=== PATIENT | female | born 1975 | race Hispanic/Latino ===

== ENCOUNTER 2018-03-28 10:58 | Emergency (ER) | payer SELFPAY ==
[2018-03-28] MEDS ORDERED: AMLODIPINE 5 MG TAB ONE (11:43)
[2018-03-28] MEDS ORDERED: LISINOPRIL 20 MG TAB ONE (11:43)
--- NOTE | 2018-03-28 13:05 | RAD REPORT ---
EXAM DESCRIPTION: RAD - Chest Pa And Lat (2 Views) - 03/28/2018 12:45 pm CLINICAL HISTORY: Cough and congestion COMPARISON: December 2009 TECHNIQUE: PA and lateral views of the chest were obtained. FINDINGS: The lungs are normal volume. Interstitial markings are prominent increased over the prior study. Prior examination showed scarring or linear atelectasis in the lower lung martinez. This scarrin g changes are present to a lesser degree. No large mass or consolidation. Right hilar fullness is pre sent accentuated by slight rotation artifact. Heart size is normal and central vasculature is within normal limits. No pleural effusion or pneumothorax seen. No acute bony finding noted. No aortic ab normality. IMPRESSION: Prominent interstitial lung markings increased over the baseline prominence. Pattern is suspicious for interstitial infiltrate or edema superimposed on chronic interstitial disea se.
--- NOTE | 2018-03-28 13:10 | ER ---
Nurse's Notes [facility] Name: Danni Huber Age: 43 yrs Sex: Female : 1975 Arrival Date: 03/28/2018 Time: 11:02 Bed 8 Private MD: Diagnosis: Bronchitis, not specified as acute or chronic Presentation: 03/28 11:05 Presenting complaint: Patient states: persistent productive cough with clear sputum for la1 since tuesday. Transition of care: patient was not received from another setting of care. Onset of symptoms was March 28, 2018. Risk Assessment: Do you want to hurt yourself or someone else? Patient reports no desire to harm self or others. Initial Sepsis Screen: Does the patient meet any 2 criteria? No. Patient's initial sepsis screen is negative. Does the patient have a suspected source of infection? No. Patient's initial sepsis screen is negative. Care prior to arrival: None. 11:05 Method Of Arrival: Ambulatory la1 11:05 Acuity: ALEXIS 3 la1 Triage Assessment: 11:00 Respiratory: Onset: The symptoms/episode began/occurred the patient has mild shortness iw of breath. 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 - Social history:: Smoking status: Patient uses tobacco products, smokes one-half pack cigarettes per day. - Ebola Screening: : No symptoms or risks identified at this time. Screenin:42 Abuse screen: Denies threats or abuse. Denies injuries from another. Nutritional iw screening: No deficits noted. Tuberculosis screening: No symptoms or risk factors identified. Fall Risk None identified. Assessment: 11:41 General: Appears in no apparent distress. Behavior is calm, cooperative. Pain: iw Complains of pain in chest. Neuro: Level of Consciousness is awake, alert, obeys commands. Cardiovascular: Rhythm is regular. Respiratory: Airway is patent Respiratory effort is even, unlabored, Respiratory pattern is regular, symmetrical, Breath sounds are coarse bilaterally. Respiratory: Reports cough that is productive. Derm: Skin is intact, is healthy with good turgor. 12:19 Reassessment: Patient appears in no apparent distress at this time. pt c/o headache, pt iw requesting to take OTC migraine medicine that she normally takes, DYE WEIGHER notified. awaiting Xray, BP down to 164/98. 13:15 Reassessment: ERP at bedside discussing plan of care. jl7 13:33 Reassessment: ERP notified of BP, no new orders received at this time. Pt discharged. jl7 13:48 Reassessment: Pt went to the bathroom and noticed tiny red dots on her left hand and jl7 wrist that were not there before. Dr. Martin ordered CBC to be done before discharge. Vital Signs: 11:05 BP 223 / 80; Pulse 80; Resp 16; Temp 99.2(O); Pulse Ox 100% on R/A; Weight 104.33 kg; la1 Height 5 ft. 1 in. (154.94 cm); 11:41 BP 231 / 97; Pulse 81; Resp 16; Pulse Ox 100% on R/A; iw 12:18 BP 164 / 98; Pulse 78; Resp 16; Pulse Ox 98% on R/A; iw 13:31 BP 193 / 79; Pulse 78; Resp 16 S; Pulse Ox 96% on R/A; jl7 14:38 BP 189 / 90; Pulse 75; Resp 14 S; Pulse Ox 100% on R/A; jl7 11:05 Body Mass Index 43.46 (104.33 kg, 154.94 cm) la1 ED Course: 11:02 Patient arrived in ED. mr 11:05 Triage completed. la1 11:06 [facility]attie Alejandre [facility]-C [facility]. kb 11:06 Keith Turcios MD is Attending Physician. kb 11:06 Arm band placed on right wrist. la1 11:15 Patient has correct armband on for positive identification. Placed in gown. Bed in low jl7 position. Call light in reach. Side rails up X 1. environmental monitoring specialist on. Pulse ox on. NIBP on. 11:35 Tiffani Queen, IRENE is Primary Nurse. iw 12:09 No provider procedures requiring assistance completed. Patient did not have IV access iw during this emergency room visit. 12:44 X-ray completed. Patient tolerated procedure well. Patient moved back from radiology. jb2 12:46 Chest Pa And Lat (2 Views) XRAY In Process Unspecified. EDMS 13:58 Initial lab(s) drawn, by me, sent to lab. Inserted saline lock: 22 gauge in right iw antecubital area, using aseptic technique. Blood collected. Administered Medications: 11:45 Drug: Lisinopril 40 mg Route: PO; iw 12:24 Follow up: Response: Blood pressure is lowered iw 11:45 Drug: Norvasc 5 mg Route: PO; iw 12:24 Follow up: Response: No adverse reaction; Blood pressure is lowered iw 13:23 Drug: Zithromax 500 mg Route: PO; jl7 13:31 Follow up: Response: Medication administered at discharge. jl7 14:39 Follow up: Response: No adverse reaction jl7 Outcome: 13:09 Discharge ordered by MD. kb 13:32 Discharged to home ambulatory, with family. jl7 13:33 Condition: stable jl7 13:33 Discharge instructions given to patient, family, Instructed on discharge instructions, follow up and referral plans. medication usage, Demonstrated understanding of instructions, follow-up care, medications, Prescriptions given X 2. 14:30 Discharge ordered by . kb 14:39 Patient left the ED. jl7 Signatures: Dispatcher [employer] EDMS Pattie Alejandre, CIRCUS AGENT-C CIRCUS AGENT-Ckb Anabell Epps, Solo jb2 Tiffani Queen, RN RN iw Cameron Porter, RN RN la1 Musa Santamaria RN RN jl7 Corrections: (The following items were deleted from the chart) 13:33 11:15 Discharged to home ambulatory, with family, jl7 jl7 13:33 11:15 Condition: stable jl7 jl7 13:33 11:15 Discharge instructions given to patient, family, Instructed on discharge jl7 instructions, follow up and referral plans. medication usage, Demonstrated understanding of instructions, follow-up care, medications, Prescriptions given X 2, jl7
--- NOTE | 2018-03-28 13:10 | EDPHYS ---
Physician Documentation [facility] Name: Danni Huber Age: 43 yrs Sex: Female : 1975 Arrival Date: 03/28/2018 Time: 11:02 Bed 8 Private MD: ED Physician Keith Turcios HPI: 03/28 11:46 This 43 yrs old Female presents to ER via Ambulatory with complaints of kb Breathing Difficulty, Cough. 11:46 The patient or guardian reports cough, that is intermittent, described as moderate, kb with no sputum, difficulty breathing, flu symptoms. Onset: The symptoms/episode began/occurred 5 day(s) ago. Severity of symptoms: At their worst the symptoms were mild, moderate, in the emergency department the symptoms are unchanged. Modifying factors: The symptoms are alleviated by nothing, the symptoms are aggravated by nothing. Associated signs and symptoms: The patient has no apparent associated signs or symptoms. The patient has not experienced similar symptoms in the past. The patient has not recently seen a physician. 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 - Social history:: Smoking status: Patient uses tobacco products, smokes one-half pack cigarettes per day. - Ebola Screening: : No symptoms or risks identified at this time. ROS: 11:45 ENT: Negative for injury, pain, and discharge, Cardiovascular: Negative for chest pain, kb palpitations, and edema, Abdomen/GI: Negative for abdominal pain, nausea, vomiting, diarrhea, and constipation, Back: Negative for injury and pain, MS/Extremity: Negative for injury and deformity, Skin: Negative for injury, rash, and discoloration, Neuro: Negative for headache, weakness, numbness, tingling, and seizure. 11:45 Constitutional: Positive for chills, malaise, Negative for body aches, fatigue, fever, poor PO intake, weight loss. 11:45 Respiratory: Positive for cough, Negative for dyspnea on exertion, hemoptysis, orthopnea, pleurisy, shortness of breath, sputum production, wheezing. Exam: 11:45 Head/Face: Normocephalic, atraumatic. ENT: Nares patent. No nasal discharge, no kb septal abnormalities noted. Tympanic membranes are normal and external auditory canals are clear. Oropharynx with no redness, swelling, or masses, exudates, or evidence of obstruction, uvula midline. Mucous membranes moist. Neck: Trachea midline, no thyromegaly or masses palpated, and no cervical lymphadenopathy. Supple, full range of motion without nuchal rigidity, or vertebral point tenderness. No Meningismus. Chest/axilla: Normal chest wall appearance and motion. Nontender with no deformity. No lesions are appreciated. Cardiovascular: Regular rate and rhythm with a normal S1 and S2. No gallops, murmurs, or rubs. Normal PMI, no JVD. No pulse deficits. Respiratory: Lungs have equal breath sounds bilaterally, clear to auscultation and percussion. No rales, rhonchi or wheezes noted. No increased work of breathing, no retractions or nasal flaring. Abdomen/GI: Soft, non-tender, with normal bowel sounds. No distension or tympany. No guarding or rebound. No evidence of tenderness throughout. Skin: Warm, dry with normal turgor. Normal color with no rashes, no lesions, and no evidence of cellulitis. MS/ Extremity: Pulses equal, no cyanosis. Neurovascular intact. Full, normal range of motion. Neuro: Awake and alert, GCS 15, oriented to person, place, time, and situation. Cranial nerves II-XII grossly intact. Motor strength 5/5 in all extremities. Sensory grossly intact. Cerebellar exam normal. Normal gait. 11:45 Constitutional: The patient appears alert, awake, uncomfortable. Vital Signs: 11:05 BP 223 / 80; Pulse 80; Resp 16; Temp 99.2(O); Pulse Ox 100% on R/A; Weight 104.33 kg; la1 Height 5 ft. 1 in. (154.94 cm); 11:41 BP 231 / 97; Pulse 81; Resp 16; Pulse Ox 100% on R/A; iw 12:18 BP 164 / 98; Pulse 78; Resp 16; Pulse Ox 98% on R/A; iw 13:31 BP 193 / 79; Pulse 78; Resp 16 S; Pulse Ox 96% on R/A; jl7 14:38 BP 189 / 90; Pulse 75; Resp 14 S; Pulse Ox 100% on R/A; jl7 11:05 Body Mass Index 43.46 (104.33 kg, 154.94 cm) la1 MDM: 11:13 Patient medically screened. kb 11:44 Data reviewed: vital signs, nurses notes. Data interpreted: Pulse oximetry: on room air kb is 100 %. Interpretation: normal. ED course: Pt has not taken BP medication today. 13:08 Counseling: I had a detailed discussion with the patient and/or guardian regarding: the kb historical points, exam findings, and any diagnostic results supporting the discharge/admit diagnosis, lab results, radiology results, the need for outpatient follow up, a family practitioner, to return to the emergency department if symptoms worsen or persist or if there are any questions or concerns that arise at home. 03/28 11:21 Order name: Flu; Complete Time: 12:11 kb 03/28 13:47 Order name: CBC with Diff; Complete Time: 14:16 jl7 03/28 11:21 Order name: Chest Pa And Lat (2 Views) XRAY; Complete Time: 13:08 kb 03/28 11:21 Order name: Recheck B/P; Complete Time: 11:35 kb Administered Medications: 11:45 Drug: Lisinopril 40 mg Route: PO; iw 12:24 Follow up: Response: Blood pressure is lowered iw 11:45 Drug: Norvasc 5 mg Route: PO; iw 12:24 Follow up: Response: No adverse reaction; Blood pressure is lowered iw 13:23 Drug: Zithromax 500 mg Route: PO; jl7 13:31 Follow up: Response: Medication administered at discharge. jl7 14:39 Follow up: Response: No adverse reaction 7 Disposition: 18:42 Co-signature as Attending Physician, Keith Turcios MD available for consultation at ps1 all times. Disposition: 03/28/18 14:30 Discharged to Home. Impression: Bronchitis, not specified as acute or chronic. - Condition is Stable. - Discharge Instructions: Acute Bronchitis, [id number]. - Prescriptions for Albuterol Sulfate 90 mcg/actuation - inhale 1-2 puff by INHALATION route every 4-6 hours; 1 Inhaler. Zithromax 500 mg Oral Tablet - take 1 tablet by ORAL route once daily for 5 days; 5 tablet. - Work release form, Medication Reconciliation Form, Thank You Letter, Antibiotic Education, Prescription Opioid Use form. - Follow up: Emergency Department; When: As needed; Reason: Worsening of condition. Follow up: Private Physician; When: 2 - 3 days; Reason: Recheck today's complaints, Continuance of care, Re-evaluation by your physician. Signatures: Dispatcher [employer] EDMA Pattie Alejandre, ELECTRONIC WIRER-C ELECTRONIC WIRER-Ckb Tiffani Queen, RN RN iw Cameron Porter RN RN la1 Musa Santamaria RN RN jl7 Keith Turcios MD MD ps1 Corrections: (The following items were deleted from the chart) 13:48 13:09 03/28/2018 13:09 Discharged to Home. Impression: Bronchitis, not specified as jl7 acute or chronic. Condition is Stable. Forms are Medication Reconciliation Form, Thank You Letter, Antibiotic Education, Prescription Opioid Use. Follow up: Emergency Department; When: As needed; Reason: Worsening of condition. Follow up: Private Physician; When: 2 - 3 days; Reason: Recheck today's complaints, Continuance of care, Re-evaluation by your physician. kb 14:39 14:30 03/28/2018 14:30 Discharged to Home. Impression: Bronchitis, not specified as jl7 acute or chronic. Condition is Stable. Prescriptions for Albuterol Sulfate 90 mcg/actuation - inhale 1-2 puff by INHALATION route every 4-6 hours; 1 Inhaler, Zithromax 500 mg Oral Tablet - take 1 tablet by ORAL route once daily for 5 days; 5 tablet. and Forms are Medication Reconciliation Form, Thank You Letter, Antibiotic Education, Prescription Opioid Use. Follow up: Emergency Department; When: As needed; Reason: Worsening of condition. Follow up: Private Physician; When: 2 - 3 days; Reason: Recheck today's complaints, Continuance of care, Re-evaluation by your physician. kb
[2018-03-28] MEDS ORDERED: AZITHROMYCIN 250 MG TAB ONE (13:21)
[2018-03-28 14:13] LABS: Absolute Lymphocytes (CBC) 1.4 K/uL (0.7-4.9); Absolute Monocytes 0.5 K/uL (0.1-1.3); Basophils % 0.9 % (0-1.3); Eosinophils % 2.2 % (0-4.4); Hematocrit 34.7 % (36.0-45.0); Lymphocytes % 16.6 % (15.3-44.8); MCH 26.5 pg (27.0-35.0); MCV 81.9 fL (80-100); MPV 10.4 fL (7.6-11.3); Monocytes % 6.7 % (3.3-12.3); RBC Red Blood Cell Count 4.24 M/uL (3.86-4.86)
== END 2018-03-28 14:39 | disposition home or self-care (01) ==
LOC: ER 10:58
DX: J40 Bronchitis, not specified as acute or chronic (principal); I10 Essential (primary) hypertension; F17.210 Nicotine dependence, cigarettes, uncomplicated
CPT/HCPCS: 36415; 71046; 85025; 87804; 99284

== ENCOUNTER 2019-02-26 04:11 | Inpatient (IN) | payer BC ==
--- OUTSIDE RECORDS SUMMARY | 2019-02-26 04:13 | XMS REPORT ---
:1975 [facility] Address [address] [place] [address] [address] [place] [address] Care Team Providers Name Role Phone Unavailable Unavailable Unavailable Problems This patient has no known problems. Allergies, Adverse Reactions, Alerts This patient has no known allergies or adverse reactions. Medications This patient has no known medications.
[2019-02-26] MEDS ORDERED: NITROGLYCERIN 1 GM PKT TD ONE (05:29)
[2019-02-26] MEDS ORDERED: FUROSEMIDE 40 MG/4 ML VIAL ONE (05:29)
[2019-02-26 05:30] LABS: Absolute Lymphocytes (CBC) 1.5 K/uL (0.7-4.9); Basophils % 0.8 % (0-1.3); Hematocrit 25.1 % (36.0-45.0); Lymphocytes % 11.7 % (15.3-44.8); MPV 9.6 fL (7.6-11.3); Protime INR 1.11
[2019-02-26 05:33] LABS: Blood Gas Oxyhemoglobin 83.8 % (94-97); Blood O2 Saturation 87.3 % (92-98.5)
[2019-02-26 05:49] LABS: ALT/SGPT 10 U/L (12-78); AST/SGOT 9 U/L (15-37); Albumin 2.7 g/dL (3.4-5.0); Alkaline Phosphatase 110 U/L (45-117); BUN Blood Urea Nitrogen 20 mg/dL (7-18); Bicarbonate 26 mmol/L (21-32); Bilirubin Direct 0.2 mg/dL (0-0.2); Bilirubin Total 0.5 mg/dL (0.2-1.0); Glucose Level 321 mg/dL (74-106); Magnesium 2.2 mg/dL (1.8-2.4); NT PRO-BNP 8033 pg/mL (<125); Potassium 3.8 mmol/L (3.5-5.1); Protein, Total 6.5 g/dL (6.4-8.2); Sodium Level 138 mmol/L (136-145); Troponin (Emerg Dept Use Only) < 0.02 ng/mL (0.0-0.045)
--- NOTE | 2019-02-26 06:01 | ER ---
Nurse's Notes [facility] Name: Danni Huber Age: 43 yrs Sex: Female : 1975 Arrival Date: 02/26/2019 Time: 04:12 Bed 8 Private MD: Diagnosis: Dyspnea;Hypoxemia;Pneumonia due to other specified bacteria;Tobacco abuse counseling;Tobacco use;Unspecified combined systolic (congestive) and diastolic (congestive) heart failure;Unspecified kidney failure;Anemia, unspecified Presentation: 02/26 04:44 Presenting complaint: Patient states: she has shortness of breath, and leg swelling bb since earlier this month after her mother pt did not want to come to the ED because of her copay she was seen by Dr Kendrick for a home sleep study a couple of weeks ago and had pneumonia in December. Pt is also c/o chest pain which started recently. Transition of care: patient was not received from another setting of care. Onset of symptoms was February 2019. Risk Assessment: Do you want to hurt yourself or someone else? Patient reports no desire to harm self or others. Initial Sepsis Screen: Does the patient meet any 2 criteria? No. Patient's initial sepsis screen is negative. Does the patient have a suspected source of infection? No. Patient's initial sepsis screen is negative. Care prior to arrival: None. 04:44 Method Of Arrival: Wheelchair bb 04:44 Acuity: ALEXIS 2 bb Triage Assessment: 05:53 Respiratory: the patient has mild shortness of breath. 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 - Social history:: Smoking status: Patient uses tobacco products, 2 or 3 cigarettes daily. - Ebola Screening: : No symptoms or risks identified at this time. Screenin:09 Abuse screen: Denies threats or abuse. Denies injuries from another. Nutritional rr5 screening: No deficits noted. Tuberculosis screening: No symptoms or risk factors identified. Fall Risk Secondary diagnosis (15 points) chf SOB. IV access (20 points). Total Patel Fall Scale indicates Low Risk Score (25-44 pts). Fall prevention measures have been instituted. Side Rails Up X 2 Placed close to Nursing Station Frequent Obs/Assesments occuring Family Present and informed to notify staff if they need to leave bedside As available Patient and Family Educated on Fall Prevention Program and strategies. Assessment: 04:40 General: Appears uncomfortable, obese, Behavior is calm, cooperative, appropriate for rr5 age. Pain: Complains of pain in chest Pain does not radiate. Pain currently is 6 out of 10 on a pain scale. Quality of pain is described as aching, Pain began gradually, Is intermittent. Neuro: Level of Consciousness is awake, alert, obeys commands, Oriented to person, place, time, situation, Appropriate for age. 04:40 Cardiovascular: Reports chest pain, shortness of breath, Capillary refill < 3 seconds rr5 Patient's skin is warm and dry. Edema is 2+ to left ankle, left foot, right ankle and right foot Rhythm is sinus rhythm. Respiratory: Reports shortness of breath at rest on exertion Airway is patent Respiratory effort is shallow, Respiratory pattern is symmetrical, tachypnea. GI: Reports bloating. : No signs and/or symptoms were reported regarding the genitourinary system. EENT: No signs and/or symptoms were reported regarding the EENT system. Derm: Skin is intact, Skin temperature is warm. Musculoskeletal: Circulation, motion, and sensation intact. Capillary refill < 3 seconds. 04:40 Respiratory: Breath sounds with rales Breath sounds with wheezes. rr5 04:55 Reassessment: oxygen saturation dropped to 82%, hooked to oxygen via nasal cannula at 4 rr5 liter per minute. 05:35 Reassessment: Patient appears in no apparent distress at this time. Patient and/or rr5 family updated on plan of care and expected duration. Pain level reassessed. awaiting for result. on oxygen support at 4 liter via nasal cannula O2 saturation 96%. 06:00 Reassessment: ED provider informed for BP 245/96 mmHg. without orders made. rr5 06:05 Reassessment: hospitalist informed for the BP reading with order made and carried out. rr5 06:30 Reassessment: according to dr. dutta, dr. jauregui accepted the case for admission. rr5 06:35 Reassessment: seen and examined by dr. rodríguez with order made and carried out. rr5 07:00 Reassessment: ED provider informed informed BP 201/80mmHg with order made and carried rr5 out. 07:30 Reassessment: Dr. Jauregui at bedside. jl7 07:45 Reassessment: Dr. Jauregui gave VO to not administer any PRBCs until this afternoon and jl7 only give one unit today and one unit tomorrow, administer 40 mg Lasix x1 post PRBC infusion today and 40 mg Lasix x1 tomorrow. Pt will be on a renal and ADA diet. 07:57 Reassessment: Pt reports OKEEFE, rated 8/10, turned lights off and pt will try to see if jl7 that helps with the OKEEFE. 08:16 Reassessment: Attempted to call report, nurse unavailable. jl7 Vital Signs: 04:54 BP 199 / 66; Pulse 73; Resp 20 S; Temp 98.5(O); Pulse Ox 91% on R/A; Weight 104.33 kg bb (R); Height 5 ft. 1 in. (154.94 cm) (R); Pain 6/10; 04:55 Pulse Ox 82% on 4 lpm NC; rr5 05:00 Pulse Ox 95% on 4 lpm NC; rr5 05:36 BP 215 / 81; Pulse 69; Resp 25; Pulse Ox 95% on 4 lpm NC; rr5 06:00 BP 245 / 96; Pulse 70; Resp 24; Pulse Ox 94% on 4 lpm NC; rr5 06:19 BP 201 / 67; Pulse 72; Resp 22; Pulse Ox 94% on 3 lpm NC; rr5 07:00 BP 201 / 80; Pulse 79; Resp 23; Pulse Ox 95% on 3 lpm NC; rr5 07:57 BP 206 / 86; Pulse 75; Resp 25; Pulse Ox 92% on 3 lpm NC; jl7 04:54 Body Mass Index 43.46 (104.33 kg, 154.94 cm) bb ED Course: 04:12 Patient arrived in ED. ds1 04:31 Lashonda Yoon, RN is Primary Nurse. ak1 04:49 Jordon Rolon MD is Attending Physician. tw4 04:51 Triage completed. bb 04:54 Arm band placed on Patient placed in an exam room, on a stretcher, on pulse oximetry. bb Family accompanied patient. 05:00 Inserted saline lock: 20 gauge in left forearm, using aseptic technique. Blood rr5 collected. 05:00 Oxygen administration via nasal cannula \T\ 4L/min Response to oxygen therapy: symptoms rr5 improved. 05:17 XRAY Chest (1 view) In Process Unspecified. EDMS 05:52 Patient has correct armband on for positive identification. Bed in low position. Call ak1 light in reach. Side rails up X 1. Adult w/ patient. double back operator on. Pulse ox on. NIBP on. Notified ED physician of a critical lab result(s). Hgb 7.8. 05:58 Daniel Dutta DO is Hospitalizing Provider. tw4 06:22 Attending Physician role handed off by Jordon Rolon MD edith 06:22 Prashant Rodríguez MD is Attending Physician. edith 06:37 Shira Jauregui MD is Hospitalizing Provider. edith 07:57 No provider procedures requiring assistance completed. Patient admitted, IV remains in jl7 place. intact, No redness/swelling at site. Administered Medications: 05:35 Drug: Lasix 40 mg Route: IVP; Site: left forearm; rr5 06:25 Follow up: Response: No adverse reaction rr5 05:37 Drug: Nitro-Bid Ointment 2 % 1 inches {Note: RIGHT.} Route: Transdermal; Site: anterior rr5 chest wall; 06:24 Follow up: Response: No adverse reaction rr5 06:15 Drug: hydrALAZINE 20 mg Route: IV; Rate: bolus; Site: left forearm; rr5 07:03 Follow up: Response: Blood pressure is lowered; IV Status: Completed infusion; IV ak1 Intake: 1ml 06:19 Drug: Lasix 20 mg Route: IVP; Site: left forearm; rr5 07:04 Follow up: Response: No adverse reaction rr5 06:45 Drug: AtroVENT Aerosol 0.5 mg Route: Inhalation; ak1 06:45 Drug: SOLU-Medrol 125 mg Route: IVP; Site: left forearm; ak1 06:50 Drug: Xopenex 2.5 mg Route: Inhalation; ak1 07:45 Drug: Lovenox 40 mg Route: Sub-Q; Site: right upper abdomen; jl7 07:45 Drug: Coreg 12.5 mg Route: PO; jl7 07:45 Drug: hydrALAZINE 10 mg Route: PO; jl7 07:48 Drug: Insulin Regular Human 10 units {Co-Signature: sg (Boy Maya RN).} Route: Sub-Q; jl7 Site: left upper abdomen; 07:50 Drug: levofloxacin 500 mg Volume: 100 ml; Route: IVPB; Infused Over: 60 mins; Site: jl7 left forearm; Intake: 07:03 IV: 1ml; Total: 1ml. ak1 05:55 voided freely post lasix rr5 Output: 05:55 Other: 1; Total: 0ml. rr5 07:10 Urine: 450ml (Voided); Total: 450ml. rr5 05:55 voided freely post lasix rr5 Outcome: 06:00 Decision to Hospitalize by Provider. tw4 06:39 Decision to Hospitalize by Provider. [facility] 09:49 Admitted to Tele accompanied by nurse, family with patient, via wheelchair, room 413, jl7 with oxygen, with chart, Report called to IRENE Fuentes 09:49 Condition: stable 09:49 Discharge instructions given to patient, Instructed on the need for admit, Demonstrated understanding of instructions. 09:58 Patient left the ED. sg Signatures: Dispatcher [employer] Boy Richey RN RN Prashant Jarvis MD MD cha Sanford, Demi ds1 Susan Rider RN RN bb Lashonda Yoon RN RN ak1 Musa Santamaria RN RN jl7 Jordon Rolon MD MD 4 Felix Diaz RN RN rr5 Boy Maya RN sg Corrections: (The following items were deleted from the chart) 04:56 04:44 Presenting complaint: Patient states: she has shortness of breath, and leg bb swelling since earlier this month after her mother pt did not want to come to the ED because of her copay she was seen by Dr Kendrick for a home sleep study a couple of weeks ago and had pneumonia in December
--- NOTE | 2019-02-26 06:02 | EDPHYS ---
Physician Documentation [facility] Name: Danni Huber Age: 43 yrs Sex: Female : 1975 Arrival Date: 02/26/2019 Time: 04:12 Bed 8 Private MD: ED Physician Prashant Rodríguez HPI: 02/26 05:18 This 43 yrs old Female presents to ER via Wheelchair with complaints of tw4 Shortness Of Breath. 05:18 The patient has shortness of breath at rest. Onset: The symptoms/episode began/occurred tw4 1 month(s) ago, and became worse yesterday. Duration: The symptoms are continuous, and are unchanged since they started. The patient's shortness of breath has no apparent modifying factors. Associated signs and symptoms: The patient has no apparent associated signs or symptoms. Severity of symptoms: At their worst the symptoms were mild in the emergency department the symptoms are unchanged. The patient has not experienced similar symptoms in the past. 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 - Social history:: Smoking status: Patient uses tobacco products, 2 or 3 cigarettes daily. - Ebola Screening: : No symptoms or risks identified at this time. ROS: 05:18 Constitutional: Negative for fever, chills, and weight loss, Eyes: Negative for injury, tw4 pain, redness, and discharge, Cardiovascular: Negative for chest pain, palpitations, and edema, Abdomen/GI: Negative for abdominal pain, nausea, vomiting, diarrhea, and constipation, Back: Negative for injury and pain, MS/Extremity: Negative for injury and deformity, Skin: Negative for injury, rash, and discoloration, Neuro: Negative for headache, weakness, numbness, tingling, and seizure. 05:18 Respiratory: Positive for shortness of breath. Exam: 05:18 Constitutional: This is a well developed, well nourished patient who is awake, alert, tw4 and in no acute distress. Head/Face: Normocephalic, atraumatic. Chest/axilla: Normal chest wall appearance and motion. Nontender with no deformity. No lesions are appreciated. Cardiovascular: Regular rate and rhythm with a normal S1 and S2. No gallops, murmurs, or rubs. Normal PMI, no JVD. No pulse deficits. 05:18 Back: No spinal tenderness. No costovertebral tenderness. Full range of motion. Skin: Warm, dry with normal turgor. Normal color with no rashes, no lesions, and no evidence of cellulitis. MS/ Extremity: Pulses equal, no cyanosis. Neurovascular intact. Full, normal range of motion. Neuro: Awake and alert, GCS 15, oriented to person, place, time, and situation. Cranial nerves II-XII grossly intact. Motor strength 5/5 in all extremities. Sensory grossly intact. Cerebellar exam normal. Normal gait. 05:18 Respiratory: moderate respiratory distress is noted, Respirations: accessory muscle usage, that is moderate, Breath sounds: rales, that are mild, are scattered, wheezing: that is moderate. Vital Signs: 04:54 BP 199 / 66; Pulse 73; Resp 20 S; Temp 98.5(O); Pulse Ox 91% on R/A; Weight 104.33 kg bb (R); Height 5 ft. 1 in. (154.94 cm) (R); Pain 6/10; 04:55 Pulse Ox 82% on 4 lpm NC; rr5 05:00 Pulse Ox 95% on 4 lpm NC; rr5 05:36 BP 215 / 81; Pulse 69; Resp 25; Pulse Ox 95% on 4 lpm NC; rr5 06:00 BP 245 / 96; Pulse 70; Resp 24; Pulse Ox 94% on 4 lpm NC; rr5 06:19 BP 201 / 67; Pulse 72; Resp 22; Pulse Ox 94% on 3 lpm NC; rr5 07:00 BP 201 / 80; Pulse 79; Resp 23; Pulse Ox 95% on 3 lpm NC; rr5 07:57 BP 206 / 86; Pulse 75; Resp 25; Pulse Ox 92% on 3 lpm NC; jl7 04:54 Body Mass Index 43.46 (104.33 kg, 154.94 cm) bb MDM: 04:49 Patient medically screened. tw4 06:00 Differential diagnosis: Anemia Anxiety Reaction. Data reviewed: vital signs, nurses tw4 notes. Data interpreted: Pulse oximetry: Interpretation: hypoxia. Plan: O2 by NC applied. Test interpretation: by ED physician or midlevel provider: plain radiologic studies. Counseling: I had a detailed discussion with the patient and/or guardian regarding: the historical points, exam findings, and any diagnostic results supporting the discharge/admit diagnosis, lab results, the need for outpatient follow up. Physician consultation: Daniel Dutta DO regarding admission, patient's condition, need to come to ED to see patient, and will see patient in ED. 02/26 04:49 Order name: Basic Metabolic Panel; Complete Time: 05:58 02/26 04:49 Order name: CBC with Diff; Complete Time: 05:58 02/26 04:49 Order name: LFT's; Complete Time: 05:58 02/26 04:49 Order name: Magnesium; Complete Time: 05:58 02/26 04:49 Order name: NT PRO-BNP; Complete Time: 05:58 02/26 04:49 Order name: PT-INR; Complete Time: 05:58 02/26 04:49 Order name: Troponin (emerg Dept Use Only); Complete Time: 05:58 02/26 04:49 Order name: XRAY Chest (1 view) tw02/26 05:06 Order name: ABG; Complete Time: 05:58 02/26 06:31 Order name: Blood Culture Adult (2) [facility] 02/26 06:31 Order name: Procalcitonin [facility] 02/26 06:37 Order name: Type And Screen [facility] 02/26 08:56 Order name: ABO/RH no charge EDOR 02/26 04:49 Order name: EKG; Complete Time: 04:52 [facility] 02/26 04:49 Order name: Cardiac monitoring; Complete Time: 05:14 02/26 04:49 Order name: EKG - Nurse/Tech; Complete Time: 05:14 02/26 04:49 Order name: IV Saline Lock; Complete Time: 05:14 02/26 04:49 Order name: Labs collected and sent; Complete Time: 05:14 02/26 04:49 Order name: O2 Per Protocol; Complete Time: 05:14 02/26 04:49 Order name: O2 Sat Monitoring; Complete Time: : EC:21 Rate is 71 beats/min. Rhythm is regular. QRS [place] is Normal. [place] interval is normal. QRS tw4 interval is normal. QT interval is normal. No Q waves. T waves are Inverted in lead aVR. No ST changes noted. Clinical impression: Normal ECG. Interpreted by me. Reviewed by me. Administered Medications: 05:35 Drug: Lasix 40 mg Route: IVP; Site: left forearm; rr5 06:25 Follow up: Response: No adverse reaction rr5 05:37 Drug: Nitro-Bid Ointment 2 % 1 inches {Note: RIGHT.} Route: Transdermal; Site: anterior rr5 chest wall; 06:24 Follow up: Response: No adverse reaction rr5 06:15 Drug: hydrALAZINE 20 mg Route: IV; Rate: bolus; Site: left forearm; rr5 07:03 Follow up: Response: Blood pressure is lowered; IV Status: Completed infusion; IV ak1 Intake: 1ml 06:19 Drug: Lasix 20 mg Route: IVP; Site: left forearm; rr5 07:04 Follow up: Response: No adverse reaction rr5 06:45 Drug: AtroVENT Aerosol 0.5 mg Route: Inhalation; ak1 06:45 Drug: SOLU-Medrol 125 mg Route: IVP; Site: left forearm; ak1 06:50 Drug: Xopenex 2.5 mg Route: Inhalation; ak1 07:45 Drug: Lovenox 40 mg Route: Sub-Q; Site: right upper abdomen; jl7 07:45 Drug: Coreg 12.5 mg Route: PO; jl7 07:45 Drug: hydrALAZINE 10 mg Route: PO; jl7 07:48 Drug: Insulin Regular Human 10 units {Co-Signature: sg (Boy Maya RN).} Route: Sub-Q; jl7 Site: left upper abdomen; 07:50 Drug: levofloxacin 500 mg Volume: 100 ml; Route: IVPB; Infused Over: 60 mins; Site: jl7 left forearm; Disposition: 02/26/19 06:39 Hospitalization ordered by Shira Jauregui for Inpatient Admission. Preliminary diagnosis are Dyspnea, Hypoxemia, Pneumonia due to other specified bacteria, Tobacco abuse counseling, Tobacco use, Unspecified combined systolic (congestive) and diastolic (congestive) heart failure, Unspecified kidney failure, Anemia, unspecified. - Bed requested for Telemetry/MedSurg (Inpatient). - Status is Inpatient Admission. sg - Condition is Fair. - Problem is new. - Symptoms have improved. UTI on Admission? No Signatures: Dispatcher [employer] EDMS Karen Ohara RN Boy Rawls RN RN Prashant Jarvis MD MD cha Ballard, Brenda RN RN bb Lashonda Yoon RN RN ak1 Musa Santamaria RN RN jl7 Jordon Rolon MD MD tw4 Felix Diaz RN RN rr5 Boy Maya RN sg Corrections: (The following items were deleted from the chart) 06:22 06:00 Hospitalization Ordered by Daniel Dutta DO for Inpatient Admission. Preliminary edith diagnosis is Unspecified combined systolic (congestive) and diastolic (congestive) heart failure; Hypoxemia. Bed requested for Telemetry/MedSurg (Inpatient). Status is Inpatient Admission. Condition is Stable. Problem is new. Symptoms are unchanged. UTI on Admission? No. tw4 07:57 06:39 Hospitalization Ordered by A Juventino MORRIS for Inpatient Admission. Preliminary dw diagnosis is Dyspnea; Hypoxemia; Pneumonia due to other specified bacteria; Tobacco abuse counseling; Tobacco use; Unspecified combined systolic (congestive) and diastolic (congestive) heart failure; Unspecified kidney failure; Anemia, unspecified. Bed requested for Telemetry/MedSurg (Inpatient). Status is Inpatient Admission. Condition is Fair. Problem is new. Symptoms have improved. UTI on Admission? No. edith 09:58 07:57 02/26/2019 06:39 Hospitalization Ordered by Shira Jauregui MD for Inpatient Admission. sg Preliminary diagnosis is Dyspnea; Hypoxemia; Pneumonia due to other specified bacteria; Tobacco abuse counseling; Tobacco use; Unspecified combined systolic (congestive) and diastolic (congestive) heart failure; Unspecified kidney failure; Anemia, unspecified. Bed requested for Telemetry/MedSurg (Inpatient). Status is Inpatient Admission. Condition is Fair. Problem is new. Symptoms have improved. UTI on Admission? No. dw
[2019-02-26] MEDS ORDERED: HYDRALAZINE HCL 20 MG/ML VIAL ONE (06:09)
[2019-02-26] MEDS ORDERED: FUROSEMIDE 20 MG/ 2ML VIAL ONE (06:17)
[2019-02-26] MEDS ORDERED: IPRATROPIUM BROM 0.5MG/2.5ML ONE (06:38)
[2019-02-26] MEDS ORDERED: LEVALBUTEROL 1.25 MG/3 ML NEB ONE (06:39)
[2019-02-26] MEDS ORDERED: Levofloxacin500mg IV 500 MG/100 ML BAG IV ONE (06:39)
[2019-02-26] MEDS ORDERED: METHYLPREDNISOLONE 125 MG INJ ONE (06:44)
[2019-02-26] MEDS ORDERED: INSULIN -REGULAR HUMAN 50 UNIT/0.5 ML ML ONE (07:16)
[2019-02-26] MEDS ORDERED: CARVEDILOL 6.25 MG TAB ONE (07:17)
[2019-02-26] MEDS ORDERED: ENOXAPARIN 40 MG/0.4 ML SQ ONE (07:17)
[2019-02-26] MEDS ORDERED: HYDRALAZINE HCL 10 MG TABLET ONE (07:17)
--- NOTE | 2019-02-26 08:27 | RAD REPORT ---
EXAM DESCRIPTION: RAD - Chest Single View - 02/26/2019 5:16 am CLINICAL HISTORY: SOB Chest pain. COMPARISON: Chest Pa And Lat (2 Views) dated 02/14/2019; Chest Pa And Lat (2 Views) dated 12/05/2018; C hest Pa And Lat (2 Views) dated 12/03/2018; Chest Single View dated 12/01/2018 FINDINGS: Portable technique limits examination quality. Moderate bilateral pulmonary opacities are present likely representing pulmonary edema. The heart is moderately enlarged in size. A small left pleural effusion suspected. IMPRESSION: Moderately severe CHF versus volume overload pattern.
[2019-02-26] MEDS ORDERED: MORPHINE 2 MG/ML SYR IV PRN (10:48)
[2019-02-26] MEDS ORDERED: ONDANSETRON 4 MG/2 ML VIAL IV PRN (10:48)
[2019-02-26] MEDS ORDERED: GLUCAGON 1 MG/VIAL IM PRN ×2 (10:48→20:25)
[2019-02-26] MEDS ORDERED: D50W 25 GM/50 ML SYRINGE IV PRN ×2 (10:48→20:25)
[2019-02-26] MEDS ORDERED: FUROSEMIDE 20 MG/ 2ML VIAL IV SCH (10:48)
[2019-02-26] MEDS: INSULIN -REGULAR HUMAN 50 UNIT/0.5 ML ML SQ SCH ×4 (10:48→20:30)
[2019-02-26] MEDS ORDERED: METHYLPREDNISOLONE 40 MG INJ IV SCH (10:48)
[2019-02-26] MEDS: FAMOTIDINE 20 MG/2 ML VIAL IV SCH ×2 (12:14→21:38)
[2019-02-26] MEDS: LISINOPRIL 20 MG TAB PO SCH (12:17)
[2019-02-26] MEDS ORDERED: FUROSEMIDE 40 MG/4 ML VIAL IV ONE (13:00)
--- NOTE | 2019-02-26 13:35 | EKG ---
Test Date: 2019-02-26 Test Time: 04:53:14 Color Stripper: ELSY MEASUREMENT RESULTS: Intervals: Rate: 71 AK: 178 QRSD: 96 QT: 438 QTc: 475 [place]: P: 56 AK: 178 QRS: 89 T: 68 INTERPRETIVE STATEMENTS: Normal sinus rhythm Possible Left atrial enlargement Borderline ECG Compared to ECG 12/01/2018 14:15:36 Left-axis deviation no longer present Myocardial infarct finding no longer present Electronically Signed On 02-26-19 13:34:32 CDT by Donn Gordon
[2019-02-26] MEDS: IPRATROPIUM BROM 0.5MG/2.5ML NEB PRN (14:00)
[2019-02-26] MEDS: ALBUTEROL 2.5 MG/3 ML NEB SOL NEB PRN (14:00)
[2019-02-26] MEDS: ACETAMINOPHEN 325 MG TABLET PO PRN (15:12)
[2019-02-26] MEDS ORDERED: ENOXAPARIN 40 MG/0.4 ML SQ SCH (17:00)
[2019-02-26] MEDS ORDERED: AMLODIPINE 5 MG TAB PO ONE (17:11)
[2019-02-26] MEDS: NITROGLYCERIN 1 GM PKT TD SCH ×2 (17:52→17:59)
[2019-02-26] MEDS ORDERED: HYDRALAZINE HCL 10 MG TABLET PO ONE (18:30)
[2019-02-26] MEDS ORDERED: INSULIN -REGULAR HUMAN 50 UNIT/0.5 ML ML IV ONE (20:15)
[2019-02-26] MEDS ORDERED: INSULIN GLARGINE 100 UNITS/ML SQ ONE (21:01)
[2019-02-26] MEDS: CARVEDILOL 6.25 MG TAB PO SCH (21:38)
--- NOTE | 2019-02-26 21:59 | HP ---
Date of Admission: 02/26/2019 Chief Complaint: Shortness of breath. History Of Present Illness: This is a 43-year-old pleasant female patient, who has appointment to se arun amrtinez for initial office visit for tomorrow, but meanwhile, she ends up in emergency room today with s hortness of breath complaints and after she was evaluated, she was admitted to the hospital and I was contacted to take over this hospital admission. I saw her in the emergency room this morning. Yee warren was in hospital with similar problem in December of this year and she reports that after she got brandi shira in the hospital, she felt better and she was doing fine until last 2-3 weeks, she is having incre asing problem with shortness of breath. Patient's mother on 02/08/2019 and she reports that sin ce that time, she is having increasing problem with cough, which is mostly dry, but as of today she h as noted some yellowish colored mucus with her cough. She denies any fever. She also reported havin g some nausea today. In last 2 weeks, she is having increasing problem with leg swelling and shortne ss of breath, which is getting worse and now she has shortness of breath with any day-to-day activity including walking from room to room. Last couple of nights, she is also having trouble breathing at nighttime and she is sleeping mostly upright with 3 pillows in last couple of nights. She has noted some weight gain with increasing leg swelling in last few days. She saw Dr. Kendrick recently and tyrone dias was concerned about possibility of sleep apnea and had a sleep study done; she is waiting for the r esult. She has seen Dr. Mack as her equipment mechanic specialist, and she reports that after her last hospital ad mission, she went back to see Dr. Mack for followup and Dr. Mack told her that she did not have congestive heart failure problem. Menstrual History: Significant for monthly menstrual cycle. Last cycle was on 02/15/2019. Usually lasts for 7 days and she describes her menstrual cycle and bleeding as heavy. Allergies: NO KNOWN ALLERGIES. Review of Systems: Cardiovascular: As mentioned above. Respiratory: As mentioned above. GI: As mentioned above. All other systems reviewed and negative. Medications: Trelegy inhaler 1 puff daily; torsemide 10 mg tablet, she takes 3 tablets 2 times a day ; Farxiga 10 mg p.o. daily; carvedilol 6.25 mg twice a day; duloxetine 30 mg twice a day for diabetic neuropathy; gabapentin 300 mg, she takes 2 capsules 2 times a day; lisinopril 40 mg p.o. daily; insu bri N 50 units in the morning and insulin regular 30 units in the morning. Family History: Mother recently, she had lung cancer with metastatic disease, COPD, coronary ar tana disease, carotid artery stenosis, diabetes. Father has hypertension, hyperlipidemia, diabetes. Social History: Positive for smoking, but recently since she has been sick, she has reduced amount o f smoking. Use of alcohol, negative. Past Surgical History: Significant for . Past Medical History: Significant for hypertension; hyperlipidemia; diabetes mellitus with diabetic neuropathy; chronic kidney disease, stage 3; congestive heart failure, chronic, diastolic; morbid obe sity. Past medical history also significant for anemia. I have reviewed her multiple hospital labs, her hemoglobin was around 11. Last year on March 28, 2018, hemoglobin was 8.2; November and December of t his year, her hemoglobin has been in range of 8.5-9.1; February 14, hemoglobin was 8.2. Physical Examination: Vital Signs: When she first came into emergency room, blood pressure 199/66, pulse 73, respiratory r ate 20, temperature 98.5, oxygen saturation 91%. Weight 104.33 kg, height 5 feet 1 inch. General: Awake, alert, oriented, not in distress. HEENT: Head atraumatic, normocephalic. Conjunctivae nonerythematous. Sclerae white. Mouth, no thr ush or edema noted. Ears/Nose, no mass, lesion, discharge noted. Neck: Supple. No JVD, lymph nodes, bruit, thyromegaly noted. Lungs: Bilateral scattered rales noted. Not using any accessory muscles of respiration. Bilateral good equal air entry. Heart: Normal heart sounds, no murmur or gallop. Abdomen: Soft, bowel sounds normal. No guarding, rigidity, tenderness, mass, hepatosplenomegaly, dis tention, or bruit noted. Extremities: Bilateral grade 3 to grade 4 pedal edema in both lower extremities. Skin: No rash, ulcer, cellulitis. Lymphatics: No lymph node enlargement in neck, supraclavicular, infraclavicular region. Neuro: No focal neurological deficit. Chest: Unremarkable. External Genitalia: Deferred. Rectal: Deferred. Laboratory Data: Today, white count 13.2, hemoglobin 7.8, platelets 280. Her MCV and MCH low. INR 1.11. Blood gas; pH 7.39, pCO2 44.2, pO2 58.3, oxygen saturation 87.3 on 32% FiO2. Sodium 138, pota ssium 3.8, chloride 104, bicarb 26, BUN 20, creatinine 1.31, glucose 321. Liver function tests unrem arkable. Troponin less than 0.02. ProBNP 8033. Chest x-ray showing increased bilateral diffuse pul monary opacities, unchanged from previous x-ray. Impression: 1.Congestive heart failure, chronic, diastolic, with acute exacerbation. 2.Iron-deficiency anemia, due to chronic blood loss. 3.Chronic kidney disease, stage 3. 4.Diabetes mellitus, uncontrolled, type 2, with diabetic neuropathy. 5.Hypertension. 6.Rule out sleep apnea. 7.Hypoxia. 8.Rule out obesity hypoventilation syndrome. Plan: We will go ahead and admit the patient to hospital for further evaluation and management of th is problem. Patient is appropriate for inpatient and is expected to spend 2 midnights in hospital. Home medications will be continued per order. Patient received 1 dose of IV Lasix and Solu-Medrol in the emergency room before I arrived. She received 60 mg of IV Lasix. Type and crossmatch were done in the emergency room for 2 units of PRBC blood transfusion. She will benefit from blood transfusio n, but we need to achieve adequate level of diuresis before we provide her any blood transfusion. Af ter her admission to the hospital, we gave another 60 mg of Lasix around lunchtime today and starting tomorrow we will give 40 mg IV every 12 hours. We will consult our equipment mechanic specialist. We will also cons ult armored cable machine operator. DVT prophylaxis will be given using Lovenox. Patient will benefit from outpatien t evaluation by marina manager and we will assist her with that once her medical condition is optimized . Salt restricted diet and diabetic diet will be given for her. Throughout today, her blood pressur e was elevated and we did have to give her extra medications like amlodipine and hydralazine was orde red and nitroglycerin paste was started this afternoon as well. We will monitor daily weight and int yoli/output and her electrolytes and renal function. I will see her tomorrow for followup. Patient w as counseled in detail to quit smoking completely. ALBERTA/MODL Voice ID: [id number]
[2019-02-27] MEDS: NITROGLYCERIN 1 GM PKT TD SCH ×4 (00:12→17:44)
[2019-02-27 01:00] LABS: Urine Appearance CLEAR; Urine Bilirubin NEGATIVE (NEG); Urine Blood NEGATIVE (NEG); Urine Color YELLOW; Urine Glucose 3+ (NEG); Urine Protein 3+ (NEG); Urine Urobilinogen 0.2 mg/dL (0.2-1.0)
[2019-02-27 01:26] LABS: Urine Microscopic Reflex ORDER UMIC
[2019-02-27 03:07] LABS: Urine Bacteria <20 /HPF (<20); Urine Culture Reflex Order REFLEXED; Urine RBC NONE SEEN /HPF (NONE SEEN); Urine Yeast PRESENT (NONE SEEN)
[2019-02-27] MEDS: HYDRALAZINE HCL 10 MG TABLET PO SCH ×3 (03:07→17:45)
[2019-02-27 04:37] LABS: Absolute Lymphocytes (CBC) 1.6 K/uL (0.7-4.9); Basophils % 0.2 % (0-1.3); Hematocrit 24.4 % (36.0-45.0); MPV 9.7 fL (7.6-11.3); RBC Red Blood Cell Count 3.29 M/uL (3.86-4.86)
[2019-02-27 04:48] LABS: Potassium 3.8 mmol/L (3.5-5.1)
[2019-02-27] MEDS ORDERED: GLUCAGON 1 MG/VIAL IM PRN (07:21)
[2019-02-27] MEDS ORDERED: D50W 25 GM/50 ML SYRINGE IV PRN (07:21)
--- NOTE | 2019-02-27 07:38 | RAD REPORT ---
EXAM DESCRIPTION: RAD - Chest Single View - 02/27/2019 6:22 am CLINICAL HISTORY: Chest pain COMPARISON: February 26 TECHNIQUE: AP portable chest image was obtained 0620 hours . FINDINGS: Lung volumes are low, reduced from the low volume prior day study. Extensive interstitial and alveolar opacification is still present but may be slightly improved. No substantial change from prior day study. Cardiac silhouette remains enlarged. Vascular engorgement is seen. No pneumothorax o r large pleural effusions seen. No acute bony abnormality seen. No acute aortic findings suspected. IMPRESSION: Interstitial and alveolar opacities are present in both lung martinez slightly improved fr om prior day study
[2019-02-27] MEDS ORDERED: INSULIN GLARGINE 100 UNITS/ML SQ SCH ×2 (08:00→21:00)
--- NOTE | 2019-02-27 08:33 | P.CNS ---
Date of Consult: 02/27/19 Chief Complaint: respiratory failure History of Present Illness: Patient is 43 years of age well known to me and this is a 2nd hospital admission she has been complaining of worsening dyspnea cough congestion last admission I felt that she had pulmonary fibrosis most likely postinflammatory patient did very well on steroids she has uncontrolled diabetes patient is candidate condition deteriorated off steroids high risk for sleep apnea or portable sleep study was nondiagnostic TIA and productive cough Allergies No Known Drug Allergies Allergy (Verified 12/01/18 23:04) Unknown Home Medications: Duloxetine HCl [Cymbalta] 1 tab PO BID 12/01/18 Gabapentin 2 cap PO BID 12/01/18 Insulin -Regular Human [Novolin -R*] 30 [place]Q [address]/01/18 Insulin NPH Human [Novolin N (Humulin N)*] [place]Q [address]/01/18 Lisinopril [Zestril] 40 mg PO DAILY 12/01/18 Carvedilol 1 tab PO Q12H #60 tablet 12/07/18 Dapagliflozin Propanediol [Farxiga] 10 mg PO DAILY 02/26/19 Fluticasone/Umeclidin/Vilanter [Trelegy Ellipta 100-62.5-25] 1 puff IH DAILY Torsemide 30 mg PO BID 02/26/19 - Past Medical/Surgical History Diabetic: Yes -: DM -: HTN -: Renal dse, stage 3 -: anemia -: C section x3 -: breast reduction - Family History Father Medical History: Heart disease, Hypertension, Diabetes Notes: CHF Mother Medical History: Heart disease, Diabetes, Cancer Notes: CHF - Social History Smoking Status: Current every day smoker Alcohol use: No CD- Drugs: No Caffeine use: Yes Review of Systems General: Weakness Respiratory: Cough, Shortness of Breath Physical Examination Temp Pulse Resp BP Pulse Ox 98.0 F 66 20 168/67 H 93 02/27/19 04:00 02/27/19 06:26 02/27/19 04:00 02/27/19 06:26 02/27/19 04:00 General: Alert, Oriented x3 Neck: Supple Respiratory: Clear to auscultation bilaterally Cardiovascular: No edema, Regular rate/rhythm Gastrointestinal: Normal bowel sounds, Soft and benign - Problems (1) Postinflammatory pulmonary fibrosis Current Visit: No Status: Acute Plan: I suspect patient has pulmonary fibrosis and she responded well to steroids redo resume low dose of prednisone high-resolution CT scan complaining of significant coughing spells possible underlying diastolic dysfunction patient's renal function is slightly worse patient is hypoxic mild respiratory acidosis patient is on low-dose insulin blood pressure mildly elevated prior echo was normal chest x-ray still shows significant interstitial lung disease was scheduled for an outpatient in labs sleep study may qualify for home oxygen
[2019-02-27] MEDS: INSULIN -REGULAR HUMAN 50 UNIT/0.5 ML ML SQ SCH ×4 (08:34→20:44)
[2019-02-27] MEDS: GABAPENTIN 300 MG CAP PO SCH ×2 (08:45→20:43)
[2019-02-27] MEDS: DULOXETINE 30 MG CAP PO SCH ×2 (08:45→20:43)
[2019-02-27] MEDS: LISINOPRIL 20 MG TAB PO SCH (08:45)
[2019-02-27] MEDS: CARVEDILOL 6.25 MG TAB PO SCH ×2 (08:47→20:43)
[2019-02-27] MEDS: ENOXAPARIN 40 MG/0.4 ML SQ SCH (08:49)
[2019-02-27] MEDS: FUROSEMIDE 40 MG/4 ML VIAL IV SCH ×2 (08:49→17:44)
[2019-02-27] MEDS: FAMOTIDINE 20 MG/2 ML VIAL IV SCH ×2 (08:49→20:43)
[2019-02-27] MEDS ORDERED: HOME MED 1 EA UNK (Dapagliflozin Propanediol [Farxiga] 10 MG) PO SCH (09:00)
[2019-02-27] MEDS: predniSONE 10 MG TAB PO SCH ×2 (09:00→20:43)
[2019-02-27] MEDS ORDERED: HOME MED 1 EA UNK (Fluticasone/Umeclidin/Vilanter [Trelegy Ellipta 100-62.5-25] 1 PUFF) IH SCH (09:00)
--- NOTE | 2019-02-27 09:44 | RAD REPORT ---
EXAM DESCRIPTION: CT - Thorax Wo Con - 02/27/2019 9:18 am CLINICAL HISTORY: Shortness of breath, suspected idiopathic pulmonary fibrosis COMPARISON: Portable chest February 2019, CT chest December 2018 TECHNIQUE: Axial 5 mm thick images of the chest were obtained without IV contrast. All CT scans are performed using dose optimization technique as appropriate and may include automated exposure control or mA/KV adjustment according to patient size. FINDINGS: No suspicious mass of the lung parenchyma. Atelectasis changes are present in the lingula and along the posterior margin of the right middle lobe. Atelectasis changes are scattered in each up per lobe as well. Small areas of nodularity are potentially masked within the atelectasis. Very minim al infiltrate could be masked. Minimal bilateral pleural effusions are present. No pneumothorax. Underlying interstitial thickening pattern is not suspected. Numerous mediastinal lymph nodes are present and there are probably small hilar lymph nodes as well. Assessment is limited in the absence of contrast. The mediastinal lymphadenopathy pattern is similar to the December 2018 study. No change in size or number. No dilatation of the aorta or pulmonary arterial tree. Vascular assessment is limited in the absence of contrast. Heart size is upper normal. No pericardial thickening or effusion. No chest wall mass or abnormal axillary lymphadenopathy. IMPRESSION: Atelectasis changes are scattered in both lung martinez. Very minimal infiltrates could be masked in the atelectatic lung. No focal consolidation. Small bilateral pleural effusions. Interstitial pattern is not suspicious for idiopathic pulmonary fibrosis. Heart size is upper normal. No pericardial thickening or effusion.
[2019-02-27] MEDS: NICOTINE 14 MG/PAT TD SCH (10:42)
--- NOTE | 2019-02-27 11:42 | CON ---
Date of Consultation: 02/27/[address] Jauregui service on 02/26/2019. I saw the patient on 02/27/2019. Reason For Consultation: Congestive heart failure. History Of Present Illness: Ms. Huber is a 43-year-old [place] woman, had been admitted be cause of mostly shortness of breath, and pedal edema. Ms. Huber has multiple issues including mor bid obesity, sleep apnea, neuropathy, hypertension as well as diabetes and chronic renal insufficienc y stage 3. Has seen Dr[address] Mack in the past and was told that she does not have any congestive heart failure. Has had a pneumonia at point and was cared for by Dr. Kendrick. An echocardiogram that wa s done in December of 2018 showed decreased left ventricular compliance, mitral annular calcification and normal ejection fraction. Ms. Huber had PND. She has orthopnea and pedal edema. No palpitation . No syncope and no chest pain. Past Medical History: As stated above. Allergies: NONE. Review of Systems: Positive for being on her cycle. Social History: Positive for tobacco. Medications: Include Neurontin, torsemide, Coreg, lisinopril, and Farxiga. Physical Examination: Vital Signs: Were noted to have blood pressure of 210/90. She weighed 230 pounds. She was in sinus rhythm. HEENT: Negative. Neck: Supple without any bruit, lymphadenopathy, JVD, or thyromegaly. Chest: Reveals some rales in both bases. Cardiac: Exam revealed a regular rhythm and rate with S4 gallops. No murmurs or rubs. Abdomen: Obese, but benign. Extremities: Revealed 1+ edema. Skin: Dry and intact. Neurologic: She was nonfocal. Diagnostic Data: That were available to me include a chest x-ray showed mild CHF. EKG showed left a xis deviation, left atrial enlargement, and sinus rhythm. Echocardiogram in December of 2018 revealed de creased left ventricular compliance, mitral annular calcification, normal ejection fraction. Her hem oglobin was 7.9. Her white count was . Impression And Plan: 1.Acute on chronic diastolic congestive heart failure exacerbation. I agree with her present regime n with carvedilol, lisinopril, and Lasix. We may have to increase the dose of the Coreg and lisinopr il to control her poorly controlled hypertension. 2.Poorly controlled hypertension. 3.Poorly controlled diabetes. 4.Elevated BNP secondary to CHF. 5.Mitral annular calcification. 6.Morbid obesity. 7.History of recent pneumonia. 8.Severe anemia. 9.Elevated white count. 10.Sleep apnea. 11.Tobacco abuse history. 12.Chronic renal insufficiency. 13.Neuropathy. Ms. Huber needs her blood pressure better controlled. She needs her sugar better controlled. She needs to quit smoking. She needs to be diuresed and transfused. She needs to lose significant amount of weight. The case was discussed with Dr. Jauregui. I will continue to follow her. I think doing a Lexiscan on her down the road because of all her risk factors including diabetes, hypertension, and family history as renal disease needs to be done. We can arrange that fo r outpatient down the road. ANGELLA Voice ID: [id number] Report ID: [id number]
[2019-02-27] MEDS: ACETAMINOPHEN 325 MG TABLET PO PRN (17:42)
[2019-02-27] MEDS: IPRATROPIUM BROM 0.5MG/2.5ML NEB PRN (22:55)
[2019-02-27] MEDS: ALBUTEROL 2.5 MG/3 ML NEB SOL NEB PRN (22:55)
--- NOTE | 2019-02-28 00:17 | PN ---
Date of Progress Note: 02/27/2019 Subjective: Patient was seen this morning for followup. No new complaints or problems reported by her. Her was present with her at bedside. This morning when I saw her, she was looking better than yesterday, feeling better than yesterday. Objective: Vital Signs: Reviewed. HEENT: Unremarkable. Lungs: Bilateral rales noted, better today than yesterday. Not using accessory muscles of respiration. Heart: Sounds normal. Abdomen: Soft. Bowel sounds normal. No guarding, rigidity, tenderness, or distention. Extremities: Bilateral leg edema present, better today than yesterday. Laboratory Data: White count 15, hemoglobin 7.6, platelets 271. Sodium 137, potassium 3.8, chloride 102, bicarb 28, BUN 27, creatinine 1.62, glucose 245. ProBNP 54079. Impression: 1. Congestive heart failure, chronic, diastolic, with acute exacerbation. 2. Chronic kidney disease, stage 3. 3. Hypertension. 4. Diabetes mellitus, with diabetic neuropathy. 5. Anemia due to chronic blood loss, iron-deficiency anemia. Plan: We will go ahead and continue diuretic treatment per order. We will give Lantus insulin 20 units twice a day. Continue sliding scale insulin. We will continue oxygen. We will not give any steroid because yesterday we noticed that her blood sugar was higher than 400, requiring extra subcutaneous insulin and IV insulin. After we discontinued IV steroid and giving extra insulin, her sugar started to come down. Chest x-ray from this morning shows improvement in bilateral pulmonary opacities. Details were discussed with Dr. Kendrick and Dr. Au. We will continue current diuretic therapy, monitor electrolytes and renal function, and we will also monitor serial chest x-ray. I believe most of her pulmonary opacities noted on the chest x-ray are due to fluid overload from congestive heart failure problem and not likely to be pulmonary fibrosis and obviously time will help us make that final decision on it. We will not give any blood transfusion today as we do not want to give her any extra fluid and put her in fluid overload while we are trying to diurese her with this congestive heart failure problem. ALBERTA/MODL Voice ID: [id number] Report ID: [id number] THERESA
[2019-02-28] MEDS: NITROGLYCERIN 1 GM PKT TD SCH ×4 (00:32→17:12)
[2019-02-28] MEDS: HYDRALAZINE HCL 10 MG TABLET PO SCH ×4 (02:30→21:48)
[2019-02-28 04:56] LABS: Basophils % 0.3 % (0-1.3); Hematocrit 25.1 % (36.0-45.0); Lymphocytes % 8.3 % (15.3-44.8); MPV 9.9 fL (7.6-11.3); RBC Red Blood Cell Count 3.34 M/uL (3.86-4.86)
[2019-02-28 05:38] LABS: Ferritin 14.2 ng/mL (8-388); Folic Acid, (Folate) 9.4 ng/mL (3.1-17.5); Magnesium 2.4 mg/dL (1.8-2.4); Potassium 3.9 mmol/L (3.5-5.1)
--- NOTE | 2019-02-28 06:43 | RAD REPORT ---
EXAM DESCRIPTION: RAD - Chest Single View - 02/28/2019 6:11 am CLINICAL HISTORY: CHF Chest pain. COMPARISON: Chest Single View dated 02/27/2019; Chest Single View dated 02/26/2019; Chest Pa And Lat ( 2 Views) dated 02/14/2019; Chest Pa And Lat (2 Views) dated 12/05/2018 FINDINGS: Portable technique limits examination quality. Since 02/27/2019, little overall change is seen in the CHF pattern. The heart remains moderately enla rged. No fracture. IMPRESSION: Stable chest since 02/27/2019.
[2019-02-28] MEDS: INSULIN -REGULAR HUMAN 50 UNIT/0.5 ML ML SQ SCH ×4 (09:07→21:49)
[2019-02-28] MEDS: INSULIN GLARGINE 100 UNITS/ML SQ SCH ×2 (09:09→21:48)
[2019-02-28] MEDS: GABAPENTIN 300 MG CAP PO SCH ×2 (09:10→21:48)
[2019-02-28] MEDS: FAMOTIDINE 20 MG TAB PO SCH ×2 (09:10→21:48)
[2019-02-28] MEDS: DULOXETINE 30 MG CAP PO SCH ×2 (09:10→21:48)
[2019-02-28] MEDS: ENOXAPARIN 40 MG/0.4 ML SQ SCH (09:10)
[2019-02-28] MEDS: CARVEDILOL 12.5 MG TAB PO SCH ×2 (09:11→21:48)
[2019-02-28] MEDS: BENZONATATE 100 MG CAP PO SCH ×3 (09:12→21:47)
[2019-02-28] MEDS: FUROSEMIDE 40 MG/4 ML VIAL IV SCH ×2 (09:12→17:11)
[2019-02-28] MEDS: LISINOPRIL 20 MG TAB PO SCH (09:13)
[2019-02-28] MEDS: NICOTINE 14 MG/PAT TD SCH (09:13)
[2019-02-28] MEDS: DAPAGLIFLOZIN PROPANEDIOL 10 MG PO SCH (09:13)
[2019-02-28 09:22] LABS: Blood Gas Oxyhemoglobin 79.5 % (94-97); Blood O2 Saturation 81.5 % (92-98.5)
--- NOTE | 2019-02-28 09:26 | EKG ---
Test Date: 2019-02-27 Test Time: 07:27:16 Traffic Control Technician: MARCELO MEASUREMENT RESULTS: Intervals: Rate: 63 MA: 178 QRSD: 92 QT: 474 QTc: 485 [place]: P: 64 MA: 178 QRS: -32 T: 74 INTERPRETIVE STATEMENTS: Normal sinus rhythm Indeterminate axis Low voltage QRS Septal infarct, age undetermined Abnormal ECG Compared to ECG 02/26/2019 04:53:14 Indeterminate axis now present Low QRS voltage now present Myocardial infarct finding now present Electronically Signed On 02-28-19 09:24:36 CDT by Donn Gordon
[2019-02-28] MEDS: SOD FERRIC GLUC COMPLX/SUCROSE 125 MG in NA CHLORIDE 0.9% 100 ML IV SCH (10:45)
--- NOTE | 2019-02-28 12:13 | P.PN ---
Subjective Date of Service: 02/28/19 Chief Complaint: Chronic pulmonary fibrosis Subjective: Improving (Patient is improving shortness of breath has improved) Review of Systems General: Weakness Respiratory: Shortness of Breath Physical Examination - Vital Signs Temperature: 97.5 F Blood Pressure: 160/90 Pulse: 68 Respirations: 19 Pulse Ox (%): 94 - Physical Exam General: Alert, Oriented x3 Respiratory: Clear to auscultation bilaterally Cardiovascular: No edema, Regular rate/rhythm Assessment & Plan - Problems (Diagnosis) (1) Postinflammatory pulmonary fibrosis Current Visit: No Status: Acute Plan: High-resolution CT scan shows chronic pulmonary fibrosis no evidence of IPF in addition there is no evidence of subpleural cystic changes no crackles it appears to me that her a scan has improved agree with holding steroids (2) Diastolic heart failure Current Visit: Yes Status: Acute Plan: I agree that she probably has underlying diastolic dysfunction due to diabetes hypertension continue with aggressive diuresis control of diabetes renal function is mildly impaired patient is hypoxic hypercapnic has home oxygen and I have ordered a repeat sleep study Qualifiers: Heart failure chronicity: acute on chronic Qualified Code(s): I50.33 - Acute on chronic diastolic (congestive) heart failure
[2019-02-28] MEDS ORDERED: IPRATROPIUM BROM 0.5MG/2.5ML NEB PRN (14:00)
[2019-02-28] MEDS ORDERED: ALBUTEROL 2.5 MG/3 ML NEB SOL NEB PRN (14:00)
--- NOTE | 2019-02-28 22:33 | PN ---
Date of Progress Note: 02/28/2019 Subjective: Patient was seen this morning for followup. No new complaints or problems reported by musa sun. Overall, she feels better. Shortness of breath is better. She is requesting some cough med ication as she continues to have ongoing cough throughout the day. Leg swelling is better. Overall, she feels better. She describes as losing about 8-9 pounds since she has been in the hospital. Her intake-output records reviewed. Daily weight records reviewed. Weight that is recorded in her jacek t is not accurate. For 3 days in a row, her weight was listed as 230 pounds and today it was recorde d as 263 pounds. Objective: Vital Signs: Reviewed. HEENT: Unremarkable. Lungs: Bilateral good equal air entry. Not in any respiratory distress. Has some rales noted in lo wer lung martinez, overall much better than before. Heart: Sounds normal. Abdomen: Soft. Bowel sounds normal. No guarding, rigidity, tenderness, or distention. Extremities: Bilateral leg edema present, but better than yesterday. Laboratory Data: White count 12.3, hemoglobin 7.6, platelets 277. Sodium 140, potassium 3.9, chlori de 104, bicarb 29, BUN 33, creatinine 1.63, glucose 300. Impression: 1.Congestive heart failure, chronic, diastolic, with acute exacerbation. 2.Iron-deficiency anemia, due to chronic blood loss. 3.Hypertension. 4.Diabetes mellitus. 5.Chronic kidney disease, stage 3. Plan: We will go ahead and continue current IV Lasix. Continue to monitor electrolytes and renal fu nction. We will make adjustment on antihypertensive medication as per order, considering her blood p ressure remains elevated. Fingerstick blood sugar readings reviewed and we will increase dose of ins ulin as well per order. Dr. Kendrick had ordered CAT scan of the chest which was done yesterday even ing, results reviewed. There is no evidence of pulmonary fibrosis and I have taken liberty to discon tinue her prednisone. Details were discussed with the patient. We will give her some cough medicine per order, increase dose of carvedilol. Discontinue IV Pepcid and start oral Pepcid. Increase hydr alazine from 10 mg to 20 mg 3 times a day. We will start her on IV iron therapy today. Lantus insul in dose will be increased from 20 units to 30 units twice a day. I suggested her to start her on William toza and I am not sure if it is available in the hospital pharmacy or not, so we will definitely cons ider starting that on an outpatient basis. Patient says that she did take it in the past and did not have any side effect. ALBERTA/MODL Voice ID: [id number] Report ID: [id number]
[2019-03-01] MEDS: NITROGLYCERIN 1 GM PKT TD SCH ×4 (00:31→17:06)
[2019-03-01] MEDS: BENZONATATE 100 MG CAP PO SCH ×2 (02:30→08:00)
[2019-03-01 04:19] LABS: Absolute Lymphocytes (CBC) 2.6 K/uL (0.7-4.9); Basophils % 0.6 % (0-1.3); Hematocrit 23.1 % (36.0-45.0); Lymphocytes % 19.8 % (15.3-44.8); MPV 9.7 fL (7.6-11.3); RBC Red Blood Cell Count 3.13 M/uL (3.86-4.86)
[2019-03-01 04:34] LABS: Magnesium 2.2 mg/dL (1.8-2.4); Potassium 3.8 mmol/L (3.5-5.1)
--- NOTE | 2019-03-01 07:15 | RAD REPORT ---
EXAM DESCRIPTION: RAD - Chest Single View - 03/01/2019 6:01 am CLINICAL HISTORY: CHF COMPARISON: February 28, February 27 TECHNIQUE: AP portable chest image was obtained 0600 hours . FINDINGS: Lung volumes remain reduced. Size is prominent with prominent central vasculature and lung markings. Additional patchy opacification present in the mid right lung field. Linear opacification in the left midlung field has increased. No measurable pleural effusion and no pneumothorax. No acute bony abnormality seen. No acute aortic findings suspected. IMPRESSION: Shallow inspiration film showing CHF/volume overload findings similar to comparison. Midlung field opacities are similar or slightly increased. Atelectasis is favored but patient can be monitored for developing pneumonia.
[2019-03-01] MEDS: INSULIN -REGULAR HUMAN 50 UNIT/0.5 ML ML SQ SCH ×4 (07:30→22:45)
[2019-03-01] MEDS ORDERED: NA CHLORIDE 0.9% 250 ML ONE (07:32)
[2019-03-01] MEDS: INSULIN GLARGINE 100 UNITS/ML SQ SCH ×2 (08:28→22:46)
[2019-03-01] MEDS: ENOXAPARIN 40 MG/0.4 ML SQ SCH (08:28)
[2019-03-01] MEDS: CARVEDILOL 12.5 MG TAB PO SCH ×2 (08:29→21:36)
[2019-03-01] MEDS: GABAPENTIN 300 MG CAP PO SCH ×2 (08:29→21:37)
[2019-03-01] MEDS: FUROSEMIDE 40 MG/4 ML VIAL IV SCH ×2 (08:29→17:06)
[2019-03-01] MEDS: FAMOTIDINE 20 MG TAB PO SCH ×2 (08:29→21:37)
[2019-03-01] MEDS: DULOXETINE 30 MG CAP PO SCH ×2 (08:29→21:36)
[2019-03-01] MEDS: LISINOPRIL 20 MG TAB PO SCH (08:30)
[2019-03-01] MEDS: NICOTINE 14 MG/PAT TD SCH (08:30)
[2019-03-01] MEDS: HYDRALAZINE HCL 10 MG TABLET PO SCH ×3 (08:30→21:36)
[2019-03-01] MEDS: GUAIFENESIN/CODEINE 5ML UCUP PO SCH ×4 (08:44→21:36)
[2019-03-01] MEDS: DAPAGLIFLOZIN PROPANEDIOL 10 MG PO SCH (08:45)
[2019-03-01] MEDS ORDERED: METOLAZONE 5 MG TABLET PO SCH (09:00)
[2019-03-01] MEDS ORDERED: FUROSEMIDE 40 MG/4 ML VIAL IV ONE (11:21)
[2019-03-01] MEDS: SOD FERRIC GLUC COMPLX/SUCROSE 125 MG in NA CHLORIDE 0.9% 100 ML IV SCH (11:46)
[2019-03-01 14:14] LABS: Hematocrit 27.9 % (36.0-45.0)
--- NOTE | 2019-03-02 01:10 | PN ---
Date of Progress Note: 03/01/2019 Subjective: Patient was seen this morning for followup. She was lying in bed, not in distress. Ove rall, her shortness of breath is improving on a day-to-day basis. She still has lot of cough and Mila salon has not helped her cough at all. Patient reports that this morning she lost 2 pounds compared to yesterday. Objective: Vital Signs: Reviewed. HEENT: Unremarkable. Lungs: Bilateral good equal air entry. No wheezing. Presence of rales noted in lower lung field, u nchanged from yesterday. Heart: Heart sounds normal. Abdomen: Soft. Bowel sounds normal. No guarding, rigidity, tenderness, distention. Extremities: Bilateral leg edema, unchanged from yesterday. Laboratory Data: White count 13.3, hemoglobin 7, platelets 260. Sodium 141, potassium 3.8, chloride 107, bicarb 29, BUN 33, creatinine 1.43, glucose 160. Impression: 1.Congestive heart failure, chronic, diastolic, with acute exacerbation. 2.Hypertension. 3.Type 2 diabetes mellitus, uncontrolled. 4.Chronic kidney disease stage 3. 5.Anemia due to chronic blood loss. Plan: We will go ahead and continue current IV Lasix 40 mg twice a day. Give 1 dose of Zaroxolyn 5 mg p.o. x1 dose today. We will give 1 unit of PRBC blood transfusion today and 1 unit tomorrow and a fter each unit of blood transfusion the patient to receive 40 mg of IV Lasix as an extra dose. We wi ll continue to monitor electrolytes, renal function, and blood count. Continue current insulin and antihypertensive medications. We will see her tomorrow for followup. Details were discussed with samuel e patient. ALBERTA/MODL Voice ID: [id number] Report ID: [id number]
[2019-03-02] MEDS: NITROGLYCERIN 1 GM PKT TD SCH ×4 (05:42→18:22)
[2019-03-02 06:05] LABS: Absolute Lymphocytes (CBC) 2.7 K/uL (0.7-4.9); Basophils % 0.6 % (0-1.3); Hematocrit 26.1 % (36.0-45.0); Lymphocytes % 21.8 % (15.3-44.8); MPV 9.4 fL (7.6-11.3); RBC Red Blood Cell Count 3.45 M/uL (3.86-4.86)
[2019-03-02 06:13] LABS: Magnesium 2.2 mg/dL (1.8-2.4); Potassium 3.9 mmol/L (3.5-5.1)
[2019-03-02] MEDS: INSULIN -REGULAR HUMAN 50 UNIT/0.5 ML ML SQ SCH ×4 (07:30→21:24)
[2019-03-02] MEDS: ENOXAPARIN 40 MG/0.4 ML SQ SCH (08:41)
[2019-03-02] MEDS: INSULIN GLARGINE 100 UNITS/ML SQ SCH ×2 (08:41→21:25)
[2019-03-02] MEDS: LISINOPRIL 20 MG TAB PO SCH (08:42)
[2019-03-02] MEDS: DULOXETINE 30 MG CAP PO SCH ×2 (08:42→21:22)
[2019-03-02] MEDS: HYDRALAZINE HCL 10 MG TABLET PO SCH ×3 (08:42→21:23)
[2019-03-02] MEDS: GUAIFENESIN/CODEINE 5ML UCUP PO SCH ×4 (08:42→21:22)
[2019-03-02] MEDS: SOD FERRIC GLUC COMPLX/SUCROSE 125 MG in NA CHLORIDE 0.9% 100 ML IV SCH (08:42)
[2019-03-02] MEDS: GABAPENTIN 300 MG CAP PO SCH ×2 (08:43→21:23)
[2019-03-02] MEDS: CARVEDILOL 12.5 MG TAB PO SCH ×2 (08:43→21:22)
[2019-03-02] MEDS: DAPAGLIFLOZIN PROPANEDIOL 10 MG PO SCH (08:43)
[2019-03-02] MEDS: FAMOTIDINE 20 MG TAB PO SCH ×2 (08:43→21:24)
[2019-03-02] MEDS: FUROSEMIDE 40 MG/4 ML VIAL IV SCH ×2 (08:44→18:23)
[2019-03-02] MEDS: NICOTINE 14 MG/PAT TD SCH (08:45)
[2019-03-02] MEDS ORDERED: METOLAZONE 5 MG TABLET PO ONE (09:03)
[2019-03-02] MEDS ORDERED: NA CHLORIDE 0.9% 250 ML ONE (09:05)
--- NOTE | 2019-03-02 09:34 | PN ---
Date of Progress Note: 03/02/2019 Subjective: Patient was seen this morning for followup. No new complaints or problems reported by h er. Overall, she feels better. She did receive 1 unit of blood transfusion yesterday. Also receive d 1 dose of Zaroxolyn and diuresed very well with that medication along with her Lasix. She feels be tter overall, feels stronger, and less short of breath when she tries to ambulate. Vital signs revie tue. Intake/output records reviewed. Her weight beginning of the month before she got sick with thi s shortness of breath was around 240 pounds and patient reports that her weight at the time of admiss ion was 273 pounds. So, she gained about 33 pounds or so within 3 weeks. While she was sick and we believe that all the weight is water weight. Objective: Vital Signs: Reviewed. HEENT: Unremarkable. Lungs: Clear to auscultation. We hear actually much better air entry in her both lung martinez except very lower part of lungs in the basal region, diminished air entry with some crackles. Not using an y accessory muscles of respiration. Heart: Heart sounds normal. Abdomen: Soft. Bowel sounds normal. No guarding, rigidity, tenderness, or distention. Extremities: Bilateral leg edema present, but as of today we started to see some skin wrinkling in h er lower leg with improvement in her leg edema. Laboratory Data: Pending from this morning. Yesterday, hemoglobin after 1 unit of PRBC transfusion was 8.8 and her hemoglobin was 7 before blood transfusion. Fingerstick blood sugar readings reviewed . Impression: 1.Congestive heart failure, chronic, diastolic, with acute exacerbation. 2.Anemia due to chronic blood loss. 3.Hypertension. 4.Diabetes mellitus. 5.Chronic kidney disease, stage 3. Plan: We will continue current medications. Continue current IV Lasix, IV iron replacement. Aisha garg will get second unit of blood transfusion today and extra dose of Lasix after blood transfusion per order. We will monitor her blood work. Continue current antihypertensive medication and diabetes m anagement. I will see her tomorrow for followup. Our plan and goal are to get her adequate level of diuresis to try to get her weight down to around 235 to 240 pounds range if possible. As long as he r renal function and electrolytes will allow us to continue aggressive diuretic therapy, we will cont inue to do so with close monitoring. All these details were discussed with her. ALBERTA/MODL Voice ID: [id number] Report ID: [id number]
[2019-03-02] MEDS ORDERED: FUROSEMIDE 40 MG/4 ML VIAL IV ONE (18:13)
[2019-03-02 20:56] LABS: Hematocrit 31.5 % (36.0-45.0)
[2019-03-03] MEDS: NITROGLYCERIN 1 GM PKT TD SCH ×4 (00:38→17:13)
[2019-03-03 07:23] LABS: Absolute Lymphocytes (CBC) 2.3 K/uL (0.7-4.9); Basophils % 0.9 % (0-1.3); Hematocrit 27.9 % (36.0-45.0); Lymphocytes % 17.6 % (15.3-44.8); MPV 10.1 fL (7.6-11.3); RBC Red Blood Cell Count 3.67 M/uL (3.86-4.86)
[2019-03-03 07:28] LABS: Magnesium 2.4 mg/dL (1.8-2.4); Potassium 4.2 mmol/L (3.5-5.1)
[2019-03-03] MEDS: NICOTINE 14 MG/PAT TD SCH (09:00)
[2019-03-03] MEDS: INSULIN -REGULAR HUMAN 50 UNIT/0.5 ML ML SQ SCH ×4 (09:00→21:19)
[2019-03-03] MEDS: SOD FERRIC GLUC COMPLX/SUCROSE 125 MG in NA CHLORIDE 0.9% 100 ML IV SCH (09:01)
[2019-03-03] MEDS: INSULIN GLARGINE 100 UNITS/ML SQ SCH ×2 (09:01→21:19)
[2019-03-03] MEDS: FUROSEMIDE 40 MG/4 ML VIAL IV SCH ×2 (09:02→17:13)
[2019-03-03] MEDS: ENOXAPARIN 40 MG/0.4 ML SQ SCH (09:02)
[2019-03-03] MEDS: DAPAGLIFLOZIN PROPANEDIOL 10 MG PO SCH (09:02)
[2019-03-03] MEDS: GUAIFENESIN/CODEINE 5ML UCUP PO SCH ×4 (09:02→21:17)
[2019-03-03] MEDS: LISINOPRIL 20 MG TAB PO SCH (09:03)
[2019-03-03] MEDS: GABAPENTIN 300 MG CAP PO SCH ×2 (09:03→21:18)
[2019-03-03] MEDS: HYDRALAZINE HCL 10 MG TABLET PO SCH ×3 (09:03→21:19)
[2019-03-03] MEDS: CARVEDILOL 12.5 MG TAB PO SCH (09:03)
[2019-03-03] MEDS: FAMOTIDINE 20 MG TAB PO SCH ×2 (09:04→21:18)
[2019-03-03] MEDS: DULOXETINE 30 MG CAP PO SCH ×2 (09:04→21:18)
[2019-03-03] MEDS ORDERED: METOLAZONE 5 MG TABLET PO SCH (10:00)
[2019-03-03] MEDS ORDERED: CARVEDILOL 12.5 MG TAB PO ONE (10:01)
--- NOTE | 2019-03-03 15:56 | PN ---
Date of Progress Note: 03/03/2019 Subjective: Patient was seen this morning for followup. She feels much better today. When I saw he r, she was looking lot better, feeling much better. Ambulates better than before. She is diuresing very well with combination of Lasix and Zaroxolyn. Intake and output records reviewed. Weight revie tue. Objective: Vital Signs: Reviewed. HEENT: Examination unremarkable. Lungs: Bilateral good equal air entry. Diminished air entry in both lower lung martinez with rales in basal region. Rest of the lung martinez appear normal. Heart: Heart sounds normal. Abdomen: Soft. Bowel sounds normal. No guarding, rigidity, tenderness, distention. Extremities: Bilateral leg edema present, but better than before. Edema from abdominal wall is also better. Laboratory Data: White count 12.9, hemoglobin 8.8, platelets 265. Sodium 142, potassium 4.2, chlori de 104, bicarb 31, BUN 38, creatinine 1.50, glucose 187. Impression: 1.Congestive heart failure, chronic, diastolic, with acute exacerbation. 2.Anemia due to chronic blood loss. 3.Chronic kidney disease, stage 3. 4.Hypertension. 5.Diabetes mellitus. Plan: We will continue current Lasix. Continue Zaroxolyn 5 mg p.o. x1 dose today, so this will be d ay #3 that she is getting Zaroxolyn. We will continue to monitor intake and output, daily weight, el ectrolytes, renal function. She has received 2 units of blood transfusion, second unit was yesterday and first unit was day before yesterday. There is no need for any more blood transfusion at this po int. We will continue IV iron therapy. We will try to diurese her as much as we can as we know that her weight was around 235 pounds or so around February 08, 2019. After that she started gaining georgina ght and having shortness of breath, so our goal is to try to diurese her as much as she can prior to discharge. Possible discharge to go home either on Tuesday or Tuesday depending on her condition of feng link. Ambulation was encouraged. We will start her on Victoza to help with diabetes control and it may assist her to lose weight also, and Victoza is not available in hospital for me to order so I mcdowell ve sent a prescription to her pharmacy. Her family will bring medication to hospital so we can start using it as of tomorrow. ALBERTA/MODL Voice ID: [id number] Report ID: [id number]
[2019-03-03] MEDS: CARVEDILOL 25 MG TAB PO SCH (21:18)
[2019-03-04] MEDS: NITROGLYCERIN 1 GM PKT TD SCH ×5 (00:26→23:50)
[2019-03-04 06:25] LABS: Absolute Lymphocytes (CBC) 2.5 K/uL (0.7-4.9); Hematocrit 29.2 % (36.0-45.0); Lymphocytes % 19.9 % (15.3-44.8); MPV 9.4 fL (7.6-11.3); RBC Red Blood Cell Count 3.84 M/uL (3.86-4.86)
[2019-03-04 06:53] LABS: Magnesium 2.3 mg/dL (1.8-2.4); Potassium 4.2 mmol/L (3.5-5.1)
[2019-03-04] MEDS: INSULIN GLARGINE 100 UNITS/ML SQ SCH ×2 (08:55→20:58)
[2019-03-04] MEDS: INSULIN -REGULAR HUMAN 50 UNIT/0.5 ML ML SQ SCH ×4 (08:56→20:58)
[2019-03-04] MEDS: NICOTINE 14 MG/PAT TD SCH (09:00)
[2019-03-04] MEDS ORDERED: METOLAZONE 5 MG TABLET PO SCH (09:00)
[2019-03-04] MEDS: SOD FERRIC GLUC COMPLX/SUCROSE 125 MG in NA CHLORIDE 0.9% 100 ML IV SCH (09:59)
[2019-03-04] MEDS: DAPAGLIFLOZIN PROPANEDIOL 10 MG PO SCH (10:13)
[2019-03-04] MEDS: FAMOTIDINE 20 MG TAB PO SCH ×2 (10:14→20:57)
[2019-03-04] MEDS: GABAPENTIN 300 MG CAP PO SCH ×2 (10:15→20:57)
[2019-03-04] MEDS: CARVEDILOL 25 MG TAB PO SCH ×3 (10:15→21:00)
[2019-03-04] MEDS: LISINOPRIL 20 MG TAB PO SCH (10:16)
[2019-03-04] MEDS: HYDRALAZINE HCL 10 MG TABLET PO SCH ×3 (10:17→20:57)
[2019-03-04] MEDS: DULOXETINE 30 MG CAP PO SCH ×2 (10:17→20:56)
[2019-03-04] MEDS: ENOXAPARIN 40 MG/0.4 ML SQ SCH (10:18)
[2019-03-04] MEDS: GUAIFENESIN/CODEINE 5ML UCUP PO SCH ×4 (10:19→20:57)
[2019-03-04] MEDS: LIRAGLUTIDE SQ SCH (10:27)
[2019-03-04] MEDS: FUROSEMIDE 40 MG/4 ML VIAL IV SCH ×2 (10:31→16:45)
--- NOTE | 2019-03-04 13:45 | PN ---
Date of Progress Note: 03/04/2019 Subjective: Patient was seen this morning for followup. She was sitting in the bed, feeling better over last 2 days compared to before. She did not require any oxygen all day yesterday, but last night, her oxygen saturation dropped around 88%. She did use some oxygen during night. She is diuresing very well. Intake and output records reviewed. Her weight records reviewed. Objective: HEENT: Examination unremarkable. Lungs: Bilateral good equal air entry. No rhonchi. No rales. Diminished air entry in the lung bases. Not using accessory muscles of respiration. Heart: Heart sounds normal. Abdomen: Soft. Bowel sounds normal. No guarding, rigidity, tenderness, or distention. Extremities: Bilateral leg edema present, but getting better on a day-to-day basis for last 2-3 days compared to before. Laboratory Data: White count 12.6, hemoglobin 9.4, platelets 292. Sodium 140, potassium 4.2, chloride 102, bicarb 34. Impression: 1. Congestive heart failure, chronic, diastolic, with acute exacerbation. 2. Hypertension. 3. Diabetes mellitus. 4. Chronic kidney disease, stage 3. 5. Anemia. 6. Iron-deficiency anemia, due to chronic blood loss. Plan: We will go ahead and continue current diuretic therapy including Zaroxolyn. We will give 5 mg p.o. x1 dose. Monitor intake and output records. Continue IV iron. Her weight was 257 pounds recorded this morning. When she came in, it was 270 pounds. We will start Victoza today at 0.6 mg daily and I will see her tomorrow for followup. Patient would like to go home tomorrow if possible and I will make that decision tomorrow as we were originally thinking about possible discharge either tomorrow or day after tomorrow. ALBERTA/MODL Voice ID: [id number] Report ID: [id number] THERESA
[2019-03-05] MEDS: NITROGLYCERIN 1 GM PKT TD SCH ×2 (05:12→11:27)
[2019-03-05 05:32] LABS: Magnesium 2.3 mg/dL (1.8-2.4)
[2019-03-05 06:04] VITALS: BMI 48.6
[2019-03-05] MEDS: INSULIN -REGULAR HUMAN 50 UNIT/0.5 ML ML SQ SCH (07:30)
[2019-03-05] MEDS: INSULIN GLARGINE 100 UNITS/ML SQ SCH (08:00)
[2019-03-05] MEDS ORDERED: METOLAZONE 5 MG TABLET PO SCH (08:00)
[2019-03-05] MEDS: NICOTINE 14 MG/PAT TD SCH (08:26)
[2019-03-05] MEDS: GUAIFENESIN/CODEINE 5ML UCUP PO SCH ×2 (08:26→13:00)
[2019-03-05] MEDS: LIRAGLUTIDE SQ SCH (08:26)
[2019-03-05] MEDS: DULOXETINE 30 MG CAP PO SCH (08:26)
[2019-03-05] MEDS: FUROSEMIDE 40 MG/4 ML VIAL IV SCH (08:26)
[2019-03-05] MEDS: HYDRALAZINE HCL 10 MG TABLET PO SCH ×2 (08:26→14:00)
[2019-03-05] MEDS: CARVEDILOL 25 MG TAB PO SCH (08:27)
[2019-03-05] MEDS: FAMOTIDINE 20 MG TAB PO SCH (08:27)
[2019-03-05] MEDS: DAPAGLIFLOZIN PROPANEDIOL 10 MG PO SCH (08:27)
[2019-03-05] MEDS: ENOXAPARIN 40 MG/0.4 ML SQ SCH (08:27)
[2019-03-05] MEDS: LISINOPRIL 20 MG TAB PO SCH (08:27)
[2019-03-05] MEDS: GABAPENTIN 300 MG CAP PO SCH (08:27)
[2019-03-05] MEDS: SOD FERRIC GLUC COMPLX/SUCROSE 125 MG in NA CHLORIDE 0.9% 100 ML IV SCH (09:05)
[2019-03-05 10:46] VITALS: O2SAT 94
[2019-03-05 11:56] VITALS: BP 160/63; TEMP 97.7
--- NOTE | 2019-03-06 05:44 | DS ---
Date of Discharge: 03/05/2019 Disposition: Discharged to go home. Physical Examination: HEENT: Unremarkable. Lungs: Clear to auscultation. No rhonchi. No rales. Heart: Sounds normal. Abdomen: Soft. Bowel sounds normal. No guarding, rigidity, tenderness, distention. Extremities: Trace leg edema, which is significantly better than before. Laboratory Data: Labs done during this hospitalization: Upon admission, white count 13.2, hemoglobin 7.8, platelets 280. Lowest hemoglobin during this hospitalization was 7.0. Last CBC from yesterday; white count 12.6, hemoglobin 9.4, platelets 292. Patient received 2 units of PRBC blood transfusion during this hospitalization. Last chemistry from today; sodium 140, potassium 4, chloride 100, bicarb 35, BUN 35, creatinine 1.35, glucose 140, magnesium 2.3. Discharge Medications And Instructions: 1. Patient to discontinue her regular insulin and Novolin insulin. Discontinue torsemide and discontinue carvedilol 6.25 mg dose. New medication to be started; carvedilol 25 mg twice a day, furosemide 60 mg twice a day, hydralazine 25 mg 3 times a day, insulin Lantus 30 units 2 times a day, Victoza 0.6 mg daily subcutaneously, and Zaroxolyn 5 mg by mouth 2 times a week, which is every Tuesday and every . 2. Continue prior home medication including as below: a. Farxiga 5 mg daily. b. Duloxetine 30 mg twice a day. c. Trelegy 1 puff daily. d. Gabapentin 300 mg, takes 2 capsules 2 times a day. e. Lisinopril 40 mg daily. 3. Follow up with Dr. Kendrick next week. 4. Follow up at my office a week after. 5. Patient to eat low-salt diet and diabetic diet as per instruction from dietitian. Hospital Course: 43-year-old female patient, who was admitted to the hospital under my service after she came into emergency room with complaints of shortness of breath. Please see dictated H and P for more information. Patient was admitted to the hospital with congestive heart failure problem. After she was admitted, she was started on IV Lasix. Diabetes was managed with Lantus insulin and we increased the dose during this hospitalization up to 30 units twice a day after monitoring fingerstick blood sugar readings on a day-to- day basis closely. I also suggested for patient to start taking Victoza, which she has used it in the past, did not have any side effect, and she was able to lose some weight with that. So, I have sent a prescription to her pharmacy regarding Victoza and she will start using it 0.6 mg subcutaneous injection daily. She has iron-deficiency anemia due to chronic blood loss and that chronic blood loss is due to heavy menstrual cycle. She has not seen any community artist regarding this and once her cardiac condition is stabilized, we will refer her to community artist for outpatient evaluation and management. She did start her menstrual cycle as of yesterday. We started her on IV iron supplement during this hospitalization and she did require 2 units of packed red cell blood transfusion. Echocardiogram showed normal ejection fraction. Cardiology consultation was obtained from Dr. Au and pulmonary consultation was obtained from Dr. Kendrick. Dr. Kendrick does not believe she has COPD problem, but she was given sample for Trelegy prior to this hospital admission by Dr. Kendrick. So, she will continue to use that, but once she runs out, we will not need to continue it anymore. Patient had a sleep study done at her home and it was not conclusive as Dr. Kendrick informed me and he is going to make arrangements for sleep study to be done on an outpatient basis at hospital. Her room air oxygen saturation today was 93% and Dr. Kendrick was contacted with that and he informed that she does not to be on any home oxygen. As patient's condition improved, she was able to ambulate well. We did have to adjust antihypertensive medication during this hospitalization. Along with IV Lasix for last 4 days, we started adding Zaroxolyn 5 mg daily and since that time, she has started to diurese much better than before and has lost significant amount of weight. Dietitian was consulted to assist patient with education regarding low-salt and diabetic diet and she has good understanding on it. Patient was also instructed not to drink more than 45 ounces of liquid in 24 hours. Patient's condition has improved and she will be discharged in stable condition with above-mentioned medications and instructions. Final Diagnoses: 1. Congestive heart failure, chronic, diastolic, with acute exacerbation. 2. Iron-deficiency anemia due to chronic blood loss. 3. Chronic kidney disease stage 3. 4. Hypertension, uncontrolled. 5. Type 2 diabetes mellitus with diabetic neuropathy, uncontrolled. 6. Rule out sleep apnea. 7. Hypoxia. 8. Rule out obesity hypoventilation syndrome. ALBERTA/MODL Voice ID: [id number] Report ID: [id number] MTDD
== END 2019-03-05 14:46 | disposition home or self-care (01) | DRG 291 ==
LOC: ER 04:11 → ERHOLD 06:59 → 4TH 09:49
PROVIDERS: ADMIT Internal Medicine; ATTEND Internal Medicine
PROC: 30233N1 Transfusion of Nonautologous Red Blood Cells into Peripheral Vein, Percutaneous Approach (ICD-10-PCS; principal; 2019-03-01)
DX: I13.0 Hypertensive heart and chronic kidney disease with heart failure and stage 1 through stage 4 chronic kidney disease, or unspecified chronic kidney disease (principal); I50.33 Acute on chronic diastolic (congestive) heart failure; E66.2 Morbid (severe) obesity with alveolar hypoventilation; Z68.42 Body mass index [BMI] 45.0-49.9, adult; N18.3 Chronic kidney disease, stage 3 (moderate); E11.22 Type 2 diabetes mellitus with diabetic chronic kidney disease; E11.65 Type 2 diabetes mellitus with hyperglycemia; E11.40 Type 2 diabetes mellitus with diabetic neuropathy, unspecified; R09.02 Hypoxemia; D50.0 Iron deficiency anemia secondary to blood loss (chronic); F17.210 Nicotine dependence, cigarettes, uncomplicated
CPT/HCPCS: 36415; 36430; 71045; 71250; 80048; 80076; 81003; 81015; 82607; 82728; 82746; 82805; 82947; 82962; 83540; 83735; 83880; 84145; 84466; 84484; 85014; 85018; 85025; 85610; 86850; 86900; 86901; 87040; 87086; 87088; 93005; 94640; 96365; 96372; 96375; 99285; J0360; J1650; J1940; J2270; J2916; J2920; J2930; J7512; P9016

== ENCOUNTER 2019-07-02 13:57 | Inpatient (IN) | payer BC ==
--- OUTSIDE RECORDS SUMMARY | 2019-07-02 14:01 | XMS REPORT ---
:1975 Author Organization [facility] Address [address] [place] [address] [address]. [address] [place] [address] Care Team Providers Name Role Phone Unavailable Unavailable Unavailable Problems This patient has no known problems. Allergies, Adverse Reactions, Alerts This patient has no known allergies or adverse reactions. Medications This patient has no known medications.
[2019-07-02 14:42] VITALS: BMI 48.6
[2019-07-02] MEDS ORDERED: D50W 25 GM/50 ML SYRINGE/VIAL IV PRN (15:31)
[2019-07-02] MEDS ORDERED: GLUCAGON 1 MG/VIAL IM PRN (15:31)
[2019-07-02 16:11] LABS: Absolute Lymphocytes (CBC) 2.3 K/uL (0.7-4.9); Basophils % 0.6 % (0-1.3); Hematocrit 29.9 % (36.0-45.0); Lymphocytes % 15.6 % (15.3-44.8); MPV 10.1 fL (7.6-11.3); RBC Red Blood Cell Count 3.38 M/uL (3.86-4.86)
[2019-07-02 16:52] LABS: Albumin 2.7 g/dL (3.4-5.0); Bilirubin Total 0.3 mg/dL (0.2-1.0); Magnesium 2.7 mg/dL (1.8-2.4); Potassium 4.5 mmol/L (3.5-5.1); Protein, Total 6.6 g/dL (6.4-8.2)
--- NOTE | 2019-07-02 16:57 | RAD REPORT ---
EXAM DESCRIPTION: RAD - Chest Pa And Lat (2 Views) - 07/02/2019 4:47 pm CLINICAL HISTORY: CHF Chest pain. COMPARISON: Chest Single View dated 03/01/2019; Chest Single View dated 02/28/2019; Chest Single View dated 02/27/2019; Chest Single View dated 02/26/2019; Thorax Wo Con dated 02/27/2019 FINDINGS: Moderate bilateral pulmonary opacities are present likely representing pulmonary edema. Th e heart is mildly to moderately enlarged. No displaced fractures. IMPRESSION: Moderate CHF.
[2019-07-02] MEDS: FUROSEMIDE 40 MG/4 ML VIAL IV SCH (17:00)
[2019-07-02] MEDS: INSULIN -REGULAR HUMAN 50 UNIT/0.5 ML ML SQ SCH ×2 (17:48→20:43)
[2019-07-02] MEDS: ENOXAPARIN 40 MG/0.4 ML SQ SCH (17:49)
[2019-07-02] MEDS: HYDRALAZINE HCL 25 MG TABLET PO SCH (20:44)
[2019-07-02] MEDS: carvediloL 25 MG TAB PO SCH (20:44)
[2019-07-02] MEDS: DULOXETINE 30 MG CAP PO SCH (20:44)
[2019-07-02 22:56] LABS: Urine Appearance CLEAR; Urine Bilirubin NEGATIVE (NEG); Urine Blood NEGATIVE (NEG); Urine Color YELLOW; Urine Glucose 1+ (NEG); Urine Protein 2+ (NEG); Urine Urobilinogen 0.2 mg/dL (0.2-1.0); Urine pH 5.5 (5.0-7.0)
[2019-07-02 23:31] LABS: Urine Culture Reflex Order NOT NEEDED
[2019-07-02 23:32] LABS: Urine Bacteria <20 /HPF (<20); Urine RBC NONE SEEN /HPF (NONE SEEN); Urine Yeast FEW (NONE SEEN)
[2019-07-03] MEDS: FUROSEMIDE 40 MG/4 ML VIAL IV SCH ×4 (01:25→17:25)
[2019-07-03] MEDS ORDERED: LIDOCAINE 1% MPF 5 ML VIAL ONE (02:14)
--- NOTE | 2019-07-03 03:13 | HP ---
Date of Admission: 07/02/2019 Chief Complaint: Shortness of breath. History Of Present Illness: This is a 44-year-old female patient with chronic diastolic congestive h eart failure, reports taking her medications regularly, who came into office today with almost 20-nayla nd weight gain in last 10 days associated with increasing shortness of breath with day-to-day activit y and last 2 nights she was having paroxysmal nocturnal dyspnea and orthopnea. She also has associat ed leg swelling. After she was evaluated at the office, she was admitted to the hospital for further evaluation and management of this problem. Medications: List reviewed. Allergies: NO KNOWN ALLERGIES. Review of Systems: Cardiovascular: As mentioned above. Constitutional: As mentioned above. All other systems reviewed and negative. Past Medical History: Diabetic neuropathy, type 2 diabetes mellitus, uncontrolled, hypertension, hyp erlipidemia, chronic diastolic congestive heart failure, chronic kidney disease stage 3, anemia due t o iron-deficiency anemia as a result of menstrual blood loss. Past Surgical History: . Family History: Father has hypertension, diabetes, hyperlipidemia. Mother due to lung cancer, also had COPD, coronary artery disease, diabetes, hypertension. Social History: Positive for smoking. Use of alcohol: Negative. Physical Examination: Vital Signs: At office, blood pressure 181/90, pulse 73, respiratory rate 15, temperature 98, weight 257.8 pounds, oxygen saturation 96% on room air and height 61 inches. General: Awake, alert, oriented, not in distress. HEENT: Head atraumatic, normocephalic. Conjunctivae nonerythematous. Sclerae white. Mouth, no thr ush or edema noted. Ears/Nose, no mass, lesion, discharge noted. Neck: Supple. No JVD, lymph nodes, bruit, thyromegaly noted. Lungs: Presence of crackles in both lower 1/4 lung region with diminished air entry. Heart: Normal heart sounds, no murmur or gallop. Abdomen: Soft, bowel sounds normal. No guarding, rigidity, tenderness, mass, hepatosplenomegaly, dis tention, or bruit noted. Extremities: Bilateral grade 1 to grade 2 pedal edema. Skin: No rash, ulcer, cellulitis. Lymphatics: No lymph node enlargement in neck, supraclavicular, infraclavicular region. Neuro: No focal neurological deficit. Chest: Unremarkable. External Genitalia: Deferred. Rectal: Deferred. Laboratory Data: Chest x-ray shows moderate CHF changes. White count 14.6, hemoglobin 9.5, platelet s 287. Sodium 138, potassium 4.5, chloride 107, bicarb 27, BUN 37, creatinine 1.48, glucose 323. Li bruce function tests unremarkable. ProBNP 3676. Impression: 1.Congestive heart failure, chronic, diastolic, with acute exacerbation. 2.Diabetes mellitus, type 2, uncontrolled. 3.Diabetic neuropathy. 4.Hypertension. 5.Hyperlipidemia. 6.Iron deficiency. 7.Chronic kidney disease, stage 3. Plan: Admit patient to hospital for further evaluation and management of this problem. Patient is a ppropriate for inpatient and is expected to spend 2 midnights in hospital. Home medications will be continued per order. Will get DVT prophylaxis per order. Start IV Lasix 40 mg every 8 hours. Put p atient on electrolyte replacement protocol. Monitor intake and output, daily weight and starting stephany orrow we will start her on metolazone that she was taking upon discharge from the last hospital stay, took it for a while and then she discontinued it. Monitor fingerstick blood sugar with sliding scal e insulin for diabetes control and we will get urinalysis, urine culture done to look for any evidenc e of urinary tract infection considering leukocytosis. I will see her tomorrow for followup. When I first met her during last hospital stay, I had asked her to follow up with the hand pleater because of her heavy menstrual cycle causing iron-deficiency anemia and so far she has not done so. ALBERTA/MODL Voice ID: [id number]
[2019-07-03 05:52] LABS: Magnesium 2.6 mg/dL (1.8-2.4); Potassium 4.6 mmol/L (3.5-5.1)
[2019-07-03 05:53] LABS: Absolute Lymphocytes (CBC) 2.2 K/uL (0.7-4.9); Basophils % 0.8 % (0-1.3); Hematocrit 26.7 % (36.0-45.0); Lymphocytes % 17.1 % (15.3-44.8); MPV 10.1 fL (7.6-11.3); RBC Red Blood Cell Count 3.06 M/uL (3.86-4.86)
[2019-07-03] MEDS: LIRAGLUTIDE SQ SCH (09:00)
[2019-07-03] MEDS: HOME MED 1 EA UNK (Dapagliflozin Propanediol [Farxiga] 10 MG) PO SCH (09:00)
[2019-07-03] MEDS ORDERED: METOLAZONE 5 MG TABLET PO ONE (09:00)
[2019-07-03] MEDS: GABAPENTIN 300 MG CAP PO SCH ×2 (09:14→17:25)
[2019-07-03] MEDS: HYDRALAZINE HCL 25 MG TABLET PO SCH ×3 (09:14→21:00)
[2019-07-03] MEDS: INSULIN GLARGINE 100 UNITS/ML SQ SCH (09:15)
[2019-07-03] MEDS: lisinopriL 20 MG TAB PO SCH (09:15)
[2019-07-03] MEDS: carvediloL 25 MG TAB PO SCH ×3 (09:15→21:59)
[2019-07-03] MEDS: DULOXETINE 30 MG CAP PO SCH ×2 (09:15→21:50)
[2019-07-03] MEDS: INSULIN -REGULAR HUMAN 50 UNIT/0.5 ML ML SQ SCH ×4 (09:15→21:51)
--- NOTE | 2019-07-03 15:58 | EKG ---
Test Date: 2019-07-02 Test Time: 15:52:51 Executive Producer: KAREL MEASUREMENT RESULTS: Intervals: Rate: 79 MI: 174 QRSD: 86 QT: 420 QTc: 481 Alden: P: 66 MI: 174 QRS: 189 T: 71 INTERPRETIVE STATEMENTS: Normal sinus rhythm Right superior axis deviation Septal infarct, age undetermined Abnormal ECG Compared to ECG 02/27/2019 07:27:16 Right superior axis now present Indeterminate axis no longer present Myocardial infarct finding still present Electronically Signed On 07-03-19 15:52:31 BAGEL MAKER by Dav Au
[2019-07-03] MEDS: ENOXAPARIN 40 MG/0.4 ML SQ SCH (17:25)
[2019-07-04] MEDS: FUROSEMIDE 40 MG/4 ML VIAL IV SCH ×3 (00:13→16:28)
--- NOTE | 2019-07-04 00:49 | PN ---
Date of Progress Note: 07/03/2019 Subjective: Patient was seen this morning for followup. No new complaints or problems to reported o vernight. She did sleep better last night. Objective: Vital Signs: Reviewed. HEENT: Unremarkable. Lungs: Bilateral good, equal entry. No wheezing. Minimum rales noted in lung region, overall lora r than yesterday. Heart: Heart sounds normal. Abdomen: Soft. Bowel sounds normal. No guarding, rigidity, tenderness, or distention. Extremities: Bilateral leg edema, better than yesterday. Laboratory Data: White count 13.1, hemoglobin 8.6, platelets 284. Sodium 137, potassium 4.6, chlori de 107, bicarb 27, BUN 37, creatinine 1.53, glucose 255. Impression: 1.Congestive heart failure, chronic, diastolic, with acute exacerbation. 2.Chronic kidney disease stage 3. 3.Anemia due to iron deficiency secondary to menstrual blood loss. 4.Hypertension. 5.Diabetes mellitus, uncontrolled. Plan: We will continue current medications. Continue current IV diuretic therapy, which is Lasix, a nd starting today, we will add metolazone, monitor intake and output, daily weight, electrolytes, arely al function. 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 I did recommend her strongly to do so upon discharge. Her urinalysis was negative for any evidence of infection. ALBERTA/MODL Voice ID: [id number] Report ID: [id number]
[2019-07-04] MEDS ORDERED: DIPHENHYDRAMINE 25 MG TAB/CAP PO ONE (00:53)
[2019-07-04 05:46] LABS: Absolute Lymphocytes (CBC) 1.8 K/uL (0.7-4.9); Basophils % 0.7 % (0-1.3); Hematocrit 27.1 % (36.0-45.0); Lymphocytes % 13.1 % (15.3-44.8); MPV 9.9 fL (7.6-11.3)
[2019-07-04 06:00] LABS: Magnesium 2.7 mg/dL (1.8-2.4); Potassium 4.5 mmol/L (3.5-5.1)
[2019-07-04] MEDS: INSULIN -REGULAR HUMAN 50 UNIT/0.5 ML ML SQ SCH ×4 (08:55→20:39)
[2019-07-04] MEDS: INSULIN GLARGINE 100 UNITS/ML SQ SCH (08:56)
[2019-07-04] MEDS: GABAPENTIN 300 MG CAP PO SCH ×2 (08:57→16:29)
[2019-07-04] MEDS: lisinopriL 20 MG TAB PO SCH (08:57)
[2019-07-04] MEDS: carvediloL 25 MG TAB PO SCH ×2 (08:57→20:38)
[2019-07-04] MEDS: DULOXETINE 30 MG CAP PO SCH ×2 (08:58→20:39)
[2019-07-04] MEDS: HYDRALAZINE HCL 25 MG TABLET PO SCH ×3 (08:58→20:38)
[2019-07-04] MEDS: LIRAGLUTIDE SQ SCH (09:00)
[2019-07-04] MEDS: HOME MED 1 EA UNK (Dapagliflozin Propanediol [Farxiga] 10 MG) PO SCH (09:00)
--- NOTE | 2019-07-04 10:59 | ECHO ---
HEIGHT: 5 ft 1 in WEIGHT: 254 lb 12.8 oz DATE OF STUDY: 07/04/[address]: Raz Jauregui MD 2-DIMENSIONAL: YES M.MODE: YES DOPPLER: YES COLOR FLOW: YES TDS: PORTABLE: DEFINITY: BUBBLE STUDY: DIAGNOSIS: CONGESTIVE HEART FAILURE CARDIAC HISTORY: CATHERIZATION: NO SURGERY: NO PROSTHETIC VALVE: NO PACEMAKER: NO MEASUREMENTS (cm) DIASTOLIC (NORMALS) SYSTOLIC (NORMALS) IVSd 1.2 (0.6-1.2) LA Diam 3.5 (1.9-4.0) LVEF 77% LVIDd 4.7 (3.5-5.7) LVIDs 2.6 (2.0-3.5) %FS 45% LVPWd 1.3 (0.6-1.2) Ao Diam 2.8 (2.0-3.7) 2 DIMENSIONAL ASSESSMENT: RIGHT ATRIUM: NORMAL LEFT ATRIUM: NORMAL RIGHT VENTRICLE: NORMAL LEFT VENTRICLE: LEFT VENTRICULAR HYPERTROPHY TRICUSPID VALVE: NORMAL MITRAL VALVE: NORMAL PULMONIC VALVE: NORMAL AORTIC VALVE: NORMAL PERICARDIAL EFFUSION: NONE AORTIC ROOT: NORMAL LEFT VENTRICULAR WALL MOTION: NORMAL DOPPLER/COLOR FLOW: IMPAIRED LEFT VENTRICULAR RELAXATION COMMENTS: NORMAL LEFT VENTRICULAR EJECTION FRACTION. LEFT VENTRICULAR HYPERTROPHY. IMPAITED LEFT VENTRICULAR RELAXATION. TECHNOLOGIST: REMBERTO PINEDA
[2019-07-04] MEDS: ENOXAPARIN 40 MG/0.4 ML SQ SCH (16:29)
[2019-07-04] MEDS ORDERED: cloNIDine HCL 0.1 MG TAB PO PRN (22:23)
[2019-07-04] MEDS ORDERED: DIPHENHYDRAMINE 25 MG TAB/CAP PO PRN (22:24)
[2019-07-05] MEDS: FUROSEMIDE 40 MG/4 ML VIAL IV SCH ×3 (01:01→17:45)
[2019-07-05 07:11] LABS: Absolute Lymphocytes (CBC) 1.4 K/uL (0.7-4.9); Basophils % 0.7 % (0-1.3); Hematocrit 28.8 % (36.0-45.0); Lymphocytes % 9.2 % (15.3-44.8); MPV 10.1 fL (7.6-11.3); RBC Red Blood Cell Count 3.31 M/uL (3.86-4.86)
[2019-07-05 07:27] LABS: Ferritin 28.3 ng/mL (8-388); Magnesium 2.8 mg/dL (1.8-2.4); Potassium 4.8 mmol/L (3.5-5.1); Thyroid Stimulating Hormone 1.48 uIU/mL (0.360-3.740)
[2019-07-05] MEDS: INSULIN -REGULAR HUMAN 50 UNIT/0.5 ML ML SQ SCH ×4 (07:30→20:50)
--- NOTE | 2019-07-05 08:23 | PN ---
Date of Progress Note: 07/04/2019 Subjective: Patient was seen this morning for followup. She is feeling better. Last night, she had some itching around the IV site area and nurse called me during nighttime. Benadryl 1 time dose was ordered and after that her itching resolved and she slept very well all throughout the night. No pa roxysmal nocturnal dyspnea or orthopnea. Overall, she feels better. Objective: Vital Signs: Reviewed. HEENT: Unremarkable. Lungs: Clear to auscultation except some basal rales present overall better than before. Not using accessory muscles of respiration. Heart: Sounds normal. Abdomen: Soft. Bowel sounds normal. No guarding, rigidity, tenderness, or distention. Extremities: Bilateral leg edema present, slightly better today than yesterday. Laboratory Data: Reviewed. Impression: 1.Congestive heart failure, chronic, diastolic, with acute exacerbation. 2.Chronic kidney disease, stage III. 3.Anemia, due to iron deficiency, due to menstrual blood loss. 4.Hypertension. 5.Type 2 diabetes mellitus. Plan: We will go ahead and continue current diuretic therapy, IV Lasix, metolazone 5 mg p.o. daily. Monitor electrolytes, renal function as well as blood count. No sign of any infection anywhere. We will get a repeat echocardiogram done today. Last one was done about 6 months ago and tomorrow we w ill get her hemoglobin A1c, ferritin level, etc. She tells me today that she has scheduled her appointment to see Dr. Mikaela dia and her appointment is in about 2 to 3 weeks now. ALBERTA/MODL Voice ID: [id number] Report ID: [id number]
[2019-07-05] MEDS: HOME MED 1 EA UNK (Dapagliflozin Propanediol [Farxiga] 10 MG) PO SCH (09:00)
[2019-07-05] MEDS ORDERED: METOLAZONE 5 MG TABLET PO SCH (09:00)
[2019-07-05] MEDS: GABAPENTIN 300 MG CAP PO SCH ×2 (09:24→17:46)
[2019-07-05] MEDS: lisinopriL 20 MG TAB PO SCH (09:24)
[2019-07-05] MEDS: carvediloL 25 MG TAB PO SCH ×2 (09:25→20:50)
[2019-07-05] MEDS: DULOXETINE 30 MG CAP PO SCH ×2 (09:25→20:50)
[2019-07-05] MEDS: HYDRALAZINE HCL 25 MG TABLET PO SCH ×3 (09:25→20:50)
[2019-07-05] MEDS: INSULIN GLARGINE 100 UNITS/ML SQ SCH (09:26)
[2019-07-05 12:39] LABS: Anisocytosis 2+; Blood Morphology Comment NOTED (NOT SEEN); Platelet Estimate ADEQ; Polychromasia 1+; Urine White Blood Cell Casts OK
[2019-07-05] MEDS: ENOXAPARIN 40 MG/0.4 ML SQ SCH (17:45)
[2019-07-05 22:49] VITALS: O2SAT 92
--- NOTE | 2019-07-05 23:40 | PN ---
Date of Progress Note: 07/05/2019 Subjective: Patient was seen this morning for followup. No new complaints or problems reported by musa sun. She is overall feeling much better today than yesterday. Objective: Vital Signs: Reviewed. HEENT: Unremarkable. Lungs: Clear to auscultation, except minimum basal rales noted. Not in any respiratory distress. Heart: Sounds normal. Abdomen: Soft. Bowel sounds normal. No guarding, rigidity, tenderness, distention. Extremities: Bilateral leg edema present, but better today than yesterday. Laboratory Data: White count 15.4, hemoglobin 9.1, platelets 297. Sodium 139, potassium 4.8, chlori de 107, bicarb 26, BUN 43, creatinine 1.52, glucose 111, magnesium 2.8, TSH 1.48. Hemoglobin A1c pen ding. Ferritin level 28. Echocardiogram shows ejection fraction 72%, left ventricular hypertrophy w ith impaired left ventricular relaxation. Impression: 1.Congestive heart failure, chronic, diastolic, with acute exacerbation. 2.Iron deficiency anemia. 3.Chronic kidney disease, stage 3. 4.Hypertension. 5.Diabetes mellitus. Plan: Continue current medication. We will continue current IV Lasix and oral metolazone. Monitor intake/output, daily weight. I will see her tomorrow for followup. Possible discharge to go home to [place]. ALBERTA/MODL Voice ID: [id number] Report ID: [id number]
[2019-07-06] MEDS: FUROSEMIDE 40 MG/4 ML VIAL IV SCH ×2 (00:18→09:38)
[2019-07-06 06:03] LABS: Absolute Lymphocytes (CBC) 2.5 K/uL (0.7-4.9); Basophils % 0.8 % (0-1.3); Hematocrit 28.5 % (36.0-45.0); Lymphocytes % 21.3 % (15.3-44.8)
[2019-07-06 06:24] LABS: Magnesium 2.8 mg/dL (1.8-2.4); Potassium 4.3 mmol/L (3.5-5.1)
[2019-07-06] MEDS: INSULIN -REGULAR HUMAN 50 UNIT/0.5 ML ML SQ SCH (07:30)
[2019-07-06] MEDS: HOME MED 1 EA UNK (Dapagliflozin Propanediol [Farxiga] 10 MG) PO SCH (09:00)
[2019-07-06 09:29] VITALS: TEMP 98.1
[2019-07-06] MEDS: GABAPENTIN 300 MG CAP PO SCH (09:39)
[2019-07-06] MEDS: lisinopriL 20 MG TAB PO SCH (09:39)
[2019-07-06] MEDS: carvediloL 25 MG TAB PO SCH (09:39)
[2019-07-06] MEDS: HYDRALAZINE HCL 25 MG TABLET PO SCH (09:39)
[2019-07-06] MEDS: DULOXETINE 30 MG CAP PO SCH (09:39)
[2019-07-06] MEDS: INSULIN GLARGINE 100 UNITS/ML SQ SCH (09:49)
[2019-07-06 10:52] LABS: Urine Appearance CLEAR; Urine Bilirubin NEGATIVE (NEG); Urine Blood NEGATIVE (NEG); Urine Color YELLOW; Urine Glucose NEGATIVE (NEG); Urine Protein 2+ (NEG); Urine pH 6.5 (5.0-7.0)
[2019-07-06 11:30] VITALS: BP 161/71
[2019-07-06 11:36] LABS: Urine Microscopic Reflex ORDER UMIC
[2019-07-06 12:33] LABS: Urine Bacteria 20-50 /HPF (<20); Urine Culture Reflex Order NOT NEEDED; Urine RBC <5 /HPF (NONE SEEN)
--- NOTE | 2019-07-07 04:55 | DS ---
Date of Discharge: 07/06/2019 Subjective: Patient was seen this morning for followup. She is feeling much better. Denies any shortness of breath. No paroxysmal nocturnal dyspnea. No orthopnea. Leg swelling has resolved. Objective: Vital Signs: Reviewed. HEENT: Unremarkable. Lungs: Clear to auscultation. Heart: Sounds normal. Abdomen: Soft. Bowel sounds normal. No guarding, rigidity, tenderness, or distention. Extremities: No leg edema. Laboratory Data: White count 11.6, hemoglobin 9.3, platelets 270. Sodium 139, potassium 4.3, chloride 105, bicarb 30, BUN 45, creatinine 1.54, glucose 73, magnesium 2.8. Urinalysis was negative for any evidence of urinary tract infection but urine culture was growing streptococcus and today after I placed discharge order, updated urine culture result was reported as MRSA. Patient has no signs or symptoms of urinary tract infection and has normal urinalysis. As soon as I heard about that MRSA result, I have instructed nurse to do straight cath, urinalysis, and urine culture test to be done and the patient can go home after this specimen gets collected and we will follow up on outpatient basis. Final Diagnoses: 1. Congestive heart failure, chronic, diastolic, with acute exacerbation. 2. Diabetes mellitus, type 2, uncontrolled. 3. Diabetic neuropathy. 4. Hypertension. 5. Hyperlipidemia. 6. Iron deficiency anemia, due to heavy menstrual blood loss. 7. Chronic kidney disease, stage 3. Hospital Course: This is a 44-year-old female patient, came into office with complaints of shortness of breath and weight gain of 20 lbs over 10 days. The patient also started to have some paroxysmal nocturnal dyspnea and orthopnea. After she was evaluated, she was admitted to the hospital. She was started on IV diuretic therapy, Lasix, and oral metolazone. She started diuresing very well and her intake-output and daily weight was recorded. Echocardiogram was repeated, which shows normal ejection fraction of 72%, left ventricular hypertrophy with impaired left ventricular relaxation. Her blood pressure was elevated, and she was started on clonidine during this hospitalization. Home medications were continued. For her iron deficiency anemia, which is due to her heavy menstrual blood loss few months ago when I saw her, I had asked her to follow up with her pattern and chain maker and so far she has not scheduled that appointment and during this hospitalization, I once again explained her importance of seeing her pattern and chain maker for further evaluation and management of this problem, so finally, she has scheduled her appointment which is in about 2 weeks from now. I did talk to her in detail today to make sure that she follows low-salt and low-carb diet to help with her blood pressure, congestive heart failure, and diabetes, respectively. Weight loss is very important and she was instructed to try and lose weight with diet and exercise. Discharge Medications/instructions: 1. Continue home medications. 2. Take clonidine 0.1 mg 1 tablet by mouth 3 times a day and take metolazone 5 mg 1 tablet by mouth once a week. 3. Follow up at my office either on 07/11/2019 or 07/12/2019 and the patient to call office for appointment. ALBERTA/LANEY Voice ID: [id number] Report ID: [id number] MTDD
== END 2019-07-06 11:42 | disposition home or self-care (01) | DRG 291 ==
LOC: 2ND 13:57
PROVIDERS: ADMIT Internal Medicine; ATTEND Internal Medicine
DX: I13.0 Hypertensive heart and chronic kidney disease with heart failure and stage 1 through stage 4 chronic kidney disease, or unspecified chronic kidney disease (principal); I50.33 Acute on chronic diastolic (congestive) heart failure; E11.65 Type 2 diabetes mellitus with hyperglycemia; E11.22 Type 2 diabetes mellitus with diabetic chronic kidney disease; E11.40 Type 2 diabetes mellitus with diabetic neuropathy, unspecified; N18.3 Chronic kidney disease, stage 3 (moderate); E78.5 Hyperlipidemia, unspecified; D50.9 Iron deficiency anemia, unspecified; F17.210 Nicotine dependence, cigarettes, uncomplicated; Z79.4 Long term (current) use of insulin
CPT/HCPCS: 36415; 71046; 80048; 80053; 81001; 81003; 81015; 82728; 82947; 83036; 83735; 83880; 84443; 85025; 87077; 87086; 87088; 87186; 93005; 93306; J1650; J1815; J1940

== ENCOUNTER 2020-04-26 11:16 | Inpatient (IN) | payer OTHER ==
--- OUTSIDE RECORDS SUMMARY | 2020-04-26 11:18 | XMS REPORT | Continuity of Care Document ---
:1975 Author Organization [facility] t Address [address] [place] [address] [address] [place] [address] Care Team Providers Name Role Phone Unavailable Unavailable Unavailable Problems Condition Condition Condition Status Onset Resolution Last Treating Co mments Source Name Details Category Date Date Treatment Clinician Date Hyperlipid Hyperlipid Problem Active [facility] emia emia 03-03 Family 00:00: Practic 00 e Morbid Morbid Problem Active [facility] obesity Obesity 03-03 Family 00:00: Practic 00 e Essential Essential Problem Active Nanci danielle hypertensi Hypertensi 03-03 Fa suzan on on 00:00: Practic 00 e Edema Edema Problem Active [facility] Family 00:00: Practic 00 e Neuropathy Neuropathy Problem Active [facility] due to Due to 03-03 Family type 2 Type 2 00:00: Practic diabetes Diabetes 00 e mellitus Mellitus Allergies, Adverse Reactions, Alerts This patient has no known allergies or adverse reactions. Social History Smoking Status Start Date Stop Date Source Heavy Tobacco Smoker [facility] Practice Medications Ordered Filled Start Stop Current Ordering Indication Dosage Frequency Signature Comments Components Source Medication Medication Date Date Medication? Clinician (SIG) Name Name Accu-Chek Accu-Chek No Accu-Chek [facility] Guide test Guide test Guide test Family strips strips strips [facility] Check Check Check e glucose 3 glucose 3 glucose 3 times daily times daily times daily carvedilol carvedilol No 1 BID carvedilol [facility] 25 mg 25 mg 25 mg Family tablet Take tablet Take tablet Pract[facility] 1 tablet 1 tablet Take 1 e twice a day twice a day tablet by oral by oral twice a route in route in day by the the oral route morning. morning. in the morning. dexamethaso dexamethaso No 1 Q1D dexamethas [facility] ne 1 mg ne 1 mg one 1 mg Famil y tablet Take tablet Take tablet [facility] 1 tablet 1 tablet Take 1 e every day every day tablet by oral by oral every day route for 1 route for 1 by oral day. day. route for 1 day. duloxetine duloxetine No 1capsul Q1D duloxetine [facility] 40 mg 40 mg e(s) 40 mg Family capsule,del capsule,del capsule,de Pract[facility] ayed ayed layed e release release release sprinkle sprinkle sprinkle Take 1 Take 1 Take 1 capsule capsule capsule every day every day every day by oral by oral by oral route in route in route in the the the morning. morning. morning. furosemide furosemide No 2 BID furosemide [facility] 40 mg 40 mg 40 mg Family tablet Take tablet Take tablet [facility] 2 tablets 2 tablets Take 2 e twice a day twice a day tablets by oral by oral twice a route in route in day by the morning the morning oral route for 30 for 30 in the days. days. morning for 30 days. gabapentin gabapentin No 2capsul TID gabapentin [facility] 300 mg 300 mg e(s) 300 mg Family capsule capsule capsule Practi c Take 2 Take 2 Take 2 e capsules 3 capsules 3 capsules 3 times a day times a day times a by oral by oral day by route as route as oral route directed. directed. as directed. hydralazine hydralazine No 1 BID hydralazin [facility] 100 mg 100 mg e 100 mg Family tablet Take tablet Take tablet [facility] 1 tablet 1 tablet Take 1 e twice a day twice a day tablet by oral by oral twice a route as route as day by directed. directed. oral route as directed. Jardiance Jardiance No 1 Q1D Jardiance [facility] 25 mg 25 mg 25 mg Family tablet Take tablet Take tablet [facility] 1 tablet 1 tablet Take 1 e every day every day tablet by oral by oral every day route in route in by oral the morning the morning route in for 30 for 30 the days. days. morning for 30 days. Lantus Lantus No Lantus [facility] Solostar Solostar Solostar Fam erich U-100 U-100 U-100 [facility] Insulin 100 Insulin 100 Insulin e unit/mL (3 unit/mL (3 100 mL) mL) unit/mL (3 subcutaneou subcutaneou mL) s pen Give s pen Give subcutaneo 48 units in 48 units in us pen AM and AM and Give 48 increase as increase as units in directed; directed; AM and TDD 80 TDD 80 increase as directed; TDD 80 lisinopril lisinopril No 1 Q1D lisinopril [facility] 40 mg 40 mg 40 mg Family tablet Take tablet Take tablet [facility] 1 tablet 1 tablet Take 1 e every day every day tablet by oral by oral every day route in route in by oral the the route in morning. morning. the morning. Trulicity Trulicity No 1.5mg Q1W Trulicity [facility] 1.5 mg/0.5 1.5 mg/0.5 1.5 mg/0.5 Family mL mL mL Pract[facility] subcutaneou subcutaneou subcutaneo e s pen s pen us pen injector injector injector Inject 1.5 Inject 1.5 Inject 1.5 mg every mg every mg every week by week by week by subcutaneou subcutaneou subcutaneo s route as s route as us route directed directed as for 30 for 30 directed days. days. for 30 days. Victoza 0.6 Victoza 0.6 No 1.8mg Q1D Victoza [facility] mg/0.1 mL mg/0.1 mL 0.6 mg/0.1 [facility] (18 mg/3 (18 mg/3 mL (18 Pract ic mL) mL) mg/3 mL) e subcutaneou subcutaneou subcutaneo s pen s pen us pen injector injector injector Inject 1.8 Inject 1.8 Inject 1.8 mg every mg every mg every day by day by day by subcutaneou subcutaneou subcutaneo s route in s route in us route the the in the morning. morning. morning. Immunizations Ordered Immunization Filled Immunization Date Status Commen ts Source Name Name influenza, influenza, 2018-06-06 Completed [facility] injectable, injectable, 00:00:00 Practice quadrivalent quadrivalent pneumococcal pneumococcal 2018-04-06 Completed [facility] suzan polysaccharide PPV23 polysaccharide PPV23 00:00:00 Practice tetanus toxoid, tetanus toxoid, 2014-06-06 Completed [facility] age Family unspecified unspecified 00:00:00 Practice formulation formulation Vital Signs Vital Name Observation Time Observation Value Comments Source BP Diastolic 2020-03-03 00:00:00 86 mm[Hg] [facility] Practice Height 2020-03-03 00:00:00 61 [in_i] [facility] BMI (Body Mass 2020-03-03 00:00:00 45.1 kg/m2 [facility] Index) Practice BP Systolic 2020-03-03 00:00:00 144 mm[Hg] [facility] Body Weight 2020-03-03 00:00:00 238.6 [lb_av] [facility] Procedures Procedure Date / Time Performed Performing Clinician Sour e Caesarean Section 2014-08-26 00:00:00 [place] [facility] Caesarean Section 2012-01-31 00:00:00 [place] [facility] Caesarean Section 2011-02-28 00:00:00 [facility] Plan of Care Planned Activity Planned Date Details Comments Source Diagnostic Test 2020-03-03 glucose, fingerstick, [facility] danielle [facility] Pending 00:00:00 blood [code = Practice glucose, fingerstick, blood] Diagnostic Test 2020-03-03 hemoglobin A1C, [facility] Pending 00:00:00 fingerstick [code = Practice hemoglobin A1C, fingerstick] Diagnostic Test 2020-03-03 microalbumin/creatini [facility] Pending 00:00:00 ne, mass ratio, urine Practi ce [code = microalbumin/creatini ne, mass ratio, urine] Diagnostic Test 2020-03-03 lipid panel, serum [facility] Pending 00:00:00 [code = lipid panel, Practic e serum] Diagnostic Test 2020-03-03 CMP, serum or plasma [facility] Pending 00:00:00 [code = CMP, serum or Practi ce plasma] Diagnostic Test 2020-03-03 CBC w/ auto diff [facility] Pending 00:00:00 [code = CBC w/ auto Practice diff] Diagnostic Test 2020-03-03 TSH, serum or plasma [facility] Pending 00:00:00 [code = TSH, serum or Practi ce plasma] Diagnostic Test 2020-03-03 T4, free, serum [facility] = T4, free, serum] Practice Diagnostic Test 2020-03-03 diabetes panel, serum [facility] Pending 00:00:00 [code = diabetes Practice panel, serum] Diagnostic Test 2020-03-03 C-peptide, serum [facility] Pending 00:00:00 [code = C-peptide, Practice serum] Diagnostic Test 2020-03-03 cortisol, am, serum [facility] Pending 00:00:00 [code = cortisol, am, Rylan ross serum] Future Appointment 2020-06-02 Alcides Kauffman, [id number] [facility] 00:00:00 [facility]; Rylan ross [facility] [address], [place] [address] Encounters Start End Encounter Admission Attending Care Care Encounter Source Date/Time Date/Time Type Type Clinicians Facility Department ID 2020-03-03 2020-03-03 Alcides [facility] [id number] [facility] 00:00:00 00:00:00 Mil [facility] KauffmanBri - Rylan toney MD: [id number] [id number]_[email or web address] dias Shadow [facility], [facility] [address], [place] [address] , Ph. Results This patient has no known results.
--- OUTSIDE RECORDS SUMMARY | 2020-04-26 11:18 | XMS REPORT | Encounter Summary ---
:1975 Author Care Team Providers Name Role Phone Dr. Alcides Pandey Primary Care Provider [phone] Raz Jauregui MD Primary Care Provider [phone] Reason for Visit diabetes Instructions 1. Neuropathy due to type 2 diab etes mellitus glucose, fingerstick, bloo d hemoglobin A1C, fingerstic k microalbumin/creatinine, m ass ratio, urine CMP, serum or plasma CBC w/ auto diff TSH, serum or plasma T4, free, serum Trulicity 1.5 mg/0.5 mL lamas bcutaneous pen injector Jardiance 25 mg tablet Lantus Solostar U-100 Insu bri 100 unit/mL (3 mL) subcutaneous pen Accu-Chek Guide test strip s Accu-Chek Fastclix Lancet Drum Pen Needle 31 gauge x 3/16 " diabetes panel, serum C-peptide, serum 2. Edema furosemide 40 mg tablet 3. Hyperlipidemia high cholesterol: care ins tructions lipid panel, serum 4. Morbid obesity learning about healthy georgina ght dexamethasone 1 mg tablet cortisol, am, serum 5. Essential hypertension 6. Diabetic neuropathy Discussion Note: None recorded. Plan of Care Reminders Provider Appointments New Diabetic 04/01/2020 Drew Jaeger 11:30AM MD Jamari Return to on or around Kendal Jaeger Office 06/02/2020 MD Jamari Lab Glucose, 03/03/2020 Vm_hou_d deana Fingerstick, Blood Hemoglobin 03/03/2020 Teo lanier a1C, Fingerstick 03/03/2020 [facility] ical Microalbumin/creatinine - Eun napier , Mass Ratio, Urine Lipid Panel, 03/03/2020 [facility] Serum - Laboratory CMP, Serum or 03/03/2020 [facility] Plasma - Laboratory CBC W/ Auto 03/03/2020 [facility] [employer] Diff - Laboratory TSH, Serum or 03/03/2020 [facility] Plasma - Laboratory T4, Free, 03/03/2020 [facility] Serum - Laboratory Diabetes 03/03/2020 [facility] Medical Panel, Serum - Laboratory C-peptide, 03/03/2020 [facility] Serum - Laboratory Cortisol, Am, 03/03/2020 [facility] Serum - Laboratory Referral None recorded. Procedures None recorded. Surgeries None recorded. Imaging None recorded. Medications Name Start Date Accu-Chek Guide test strips Check glucose 3 times daily carvedilol 25 mg tablet Take 1 tablet twice a day by oral route in [facility]. dexamethasone 1 mg tablet Take 1 tablet every day by oral route for 1 day. duloxetine 40 mg capsule,delayed release sprinkle Take 1 capsule every day by oral route in the morning . furosemide 40 mg tablet Take 2 tablets twice a day by oral route in the [facility] for 30 days. gabapentin 300 mg capsule Take 2 capsules 3 times a day by oral route as direct ed. hydralazine 100 mg tablet Take 1 tablet twice a day by oral route as directed. Jardiance 25 mg tablet Take 1 tablet every day by oral route in the morning for 30 days. Lantus Solostar U-100 Insulin 100 unit/mL (3 mL) subcu taneous pen Give 48 units in AM and increase as directed; TDD 80 lisinopril 40 mg tablet Take 1 tablet every day by oral route in the morning. Trulicity 1.5 mg/0.5 mL subcutaneous pen injector Inject 1.5 mg every week by subcutaneous route as dir ected for 30 days. Victoza 0.6 mg/0.1 mL (18 mg/3 mL) subcutaneous pen in jector Inject 1.8 mg every day by subcutaneous route in the morning. Medications Administered None recorded. Vitals Height Weight BMI Blood Pressure 5 ft 1 in 238.6 lbs 45.1 kg/m2 144/86 mm[Hg] Results Lab Results Date Name Specimen Result Interpretation Description Value Range Status Address Hemoglobin a1C, Hemoglobin a1C 10.4 Kian_vaughn_jamari: Fingerstick Fingerstick: [id number] Glucose, Blood Glucose: 234 Anatoliy: Fingerstick, mg/dl 1097 0 [facility] Blood [facility] [address] [facility] Allergies None recorded. Problems Name Status Onset Date Source Hyperlipidemia Active 03/03/2020 Morbid Obesity Active 03/03/2020 Essential Hypertension Active 03/03/2020 Edema Active 03/03/2020 Neuropathy Due to Type 2 Diabetes Mellitus Active 03/03 Procedures Date Name Performed by 08/26/2014 Caesarean Section Information not avai lable 01/31/2012 Caesarean Section Information not avai lable 02/28/2011 Caesarean Section Information not avai lable Vaccine List Vaccine Type influenza, injectable, quadrivalent 06/06/2018 pneumococcal polysaccharide PPV23 04/06/2018 tetanus toxoid, unspecified formulation 06/06/2014 Social History Tobacco Smoking Status Heavy Tobacco Smoker (1/2 PPD) Past Encounters 03/03/2020 Neuropathy Due to Type 2 Diabetes Mellit us; Edema; Hyperlipidemia; Morbid Obesity; Essential Hypertension; Diabetic Neuropathy Alcides Kauffman MD: [id number] [address] [facility], [address] [address], [place] [address], Ph. History of Present Illness Diabetes Reported By: Patient HPI: Control: usually poorly cont rolled, hemoglobin A1C has been 8-9, hemoglobin A1C goal is less than 7, BP usually runs greater than 140/90, , goal is greater than 140/90, . Compl iance: compliant with medications. Self Care: seei eye doctor regularly. Associated Sympto ms: no weight gain, no weight loss, no increased th irst, no increased urination, no blurred vision , numbness of feet Complications and Co-morbidities: Chronic Complication s: diabetic neuropathy: Yes Notes: Diabetes Education: taught p t how to use Trulicity pen. discussed mech of actio n and potential benefits and side effects. w ent over site selection and rotation.<div>-discussed lower carb eating strategy and gave handout on planning healthy meals.</div><div>
</div>< div>30 minutes of diabetes education performed today</div> Note: The patient is referred by Dr. Jauregui for initial evaluation of DM2. She was diagnosed 2004. She started insulin in 2010 during her and then after. Review of Systems Comprehensive General Adult ROS Reported By: Patient Constitutional: Constitutional: no fever, no night sweats Eyes: Eyes: no dry eyes, no vision change ENMT: Ears: no difficulty hearing, no ear pain. Mouth/Throat: no sore throat Cardiovascular: Cardiovascular: no chest isidro n, no palpitations, shortness of breath when walking Respiratory: Respiratory: no cough, no wh eezing, no shortness of breath Gastrointestinal: Gastrointestinal: no abdomin al pain, no nausea, no vomiting, no constipation, frequent diarr hea Musculoskeletal: Musculoskeletal: no muscle a ches, no muscle weakness, no back pain, arthralgias/joint pain , swelling in the extremities Integumentary: Skin: no rashes Neurologic: Neurologic: no weakness, no dizziness, no headaches Psychiatric: Psych: no depression, no sle ep disturbances, no anxiety Endocrine: Endocrine: no fatigue Allergic/Immunologic: Allergy/Immunologic: no itch ing Physical Exam General Adult Exam (Female) Reported By: Patient Constitutional: General Appearance: well-dev eloped, morbidly obese. Level of Distress: NAD. Ambulation: a mbulating normally Psychiatric: Mental Status: active and al ert Head: Head: normocephalic, atrauma tic Eyes: Pupils: PERRLA. Sclerae: non -icteric Lungs: Auscultation: breath sounds normal, good air movement, no wheezing, no rales/crackles Cardiovascular: Heart Auscultation: RRR, nor mal S1, normal S2, murmur; 2/6 Murmur Abdomen: Bowel Sounds: normal. Inspec tion and Palpation: soft, no tenderness; Obese abdomen Musculoskeletal:: Motor Strength and Tone: nor mal motor strength. Extremities: no cyanosis, no edema Neurologic: Gait and Station: normal gai t Skin: Inspection and palpation: no rash, no lesions
[2020-04-26 11:37] LABS: Absolute Lymphocytes (CBC) 0.8 K/uL (0.7-4.9); Basophils % 0.6 % (0-1.3); Hematocrit 31.4 % (36.0-45.0); MPV 10.2 fL (7.6-11.3); RBC Red Blood Cell Count 3.64 M/uL (3.86-4.86)
[2020-04-26 11:41] LABS: Protime INR 1.1
[2020-04-26 12:13] LABS: ALT/SGPT 11 U/L (12-78); AST/SGOT 8 U/L (15-37); Albumin 2.8 g/dL (3.4-5.0); Alkaline Phosphatase 105 U/L (45-117); BUN Blood Urea Nitrogen 32 mg/dL (7-18); Bicarbonate 26 mmol/L (21-32); Bilirubin Direct < 0.1 mg/dL (0-0.2); Bilirubin Total 0.4 mg/dL (0.2-1.0); Glucose Level 143 mg/dL (74-106); Magnesium 2.5 mg/dL (1.8-2.4); NT PRO-BNP 6804 pg/mL (<125); Potassium 4.3 mmol/L (3.5-5.1); Protein, Total 6.9 g/dL (6.4-8.2); Sodium Level 140 mmol/L (136-145); Troponin (Emerg Dept Use Only) < 0.02 ng/mL (0.0-0.045)
--- NOTE | 2020-04-26 12:24 | RAD REPORT ---
EXAM DESCRIPTION: Stacey Single View04/26/2020 12:17 pm CLINICAL HISTORY: Shortness of breath COMPARISON: June 2019 FINDINGS: Mild bilateral pulmonary opacities. Moderate left upper lobe opacity Heart is moderately enlarged IMPRESSION: Mild bilateral pulmonary opacities likely pulmonary edema Moderate left upper lobe opacity may represent superimposed pneumonia or focal alveolar pulmonary kaci ma
--- NOTE | 2020-04-26 12:28 | EDPHYS ---
Physician Documentation [facility] Name: Danni Huber Age: 45 yrs Sex: Female : 1975 Arrival Date: 04/26/2020 Time: 11:17 Bed 5 Private MD: ED Physician Sandro Cabrera HPI: 04/26 12:46 This 45 yrs old Female presents to ER via EMS with complaints of Weakness, kdr Drowsy. 12:46 The patient presents with decreased mental status, decreased responsiveness. Onset: The kdr symptoms/episode began/occurred gradually, today. Possible causes: sepsis, the patient has had a history of a fever. Associated signs and symptoms: Pertinent positives: confusion, weakness. Patient's baseline: Neuro: alert and fully oriented, Motor: no deficits, Ambulation: walks without assistance, Speech: normal, The patient has a previous history of. The patient has not experienced similar symptoms in the past. The patient has not recently seen a physician. Historical: - Allergies: 11:17 No Known Allergies; aa5 - Home Meds: 11:17 carvedilol 6.25 mg Oral tab 1 tab 2 times per day [Active]; duloxetine 30 mg Oral cpDR aa5 1 cap 2 times per day [Active]; Farxiga 10 mg Oral tab 1 tab once daily [Active]; gabapentin Oral [Active]; lisinopril 40 mg Oral tab 1 tab once daily [Active]; torsemide 10 mg Oral tab 1 tab twice a day [Active]; - PMHx: 11:17 Diabetes - NIDDM; Hypertension; neuropathy; Renal Disease; aa5 11:17 CHF; aa5 - PSHx: 11:17 breast reduction; ; Tubal ligation; aa5 - Immunization history:: Adult Immunizations unknown. - Social history:: Smoking status: unknown. ROS: 12:46 Constitutional: Negative for fever, chills, and weight loss, Eyes: Negative for injury, kdr pain, redness, and discharge, ENT: Negative for injury, pain, and discharge, Neck: Negative for injury, pain, and swelling, Cardiovascular: Negative for chest pain, palpitations, and edema, Abdomen/GI: Negative for abdominal pain, nausea, vomiting, diarrhea, and constipation, Back: Negative for injury and pain, : Negative for injury, bleeding, discharge, and swelling, MS/Extremity: Negative for injury and deformity, Skin: Negative for injury, rash, and discoloration, Psych: Negative for depression, anxiety, suicide ideation, homicidal ideation, and hallucinations, Allergy/Immunology: Negative for hives, rash, and allergies, Endocrine: Negative for neck swelling, polydipsia, polyuria, polyphagia, and marked weight changes, Hematologic/Lymphatic: Negative for swollen nodes, abnormal bleeding, and unusual bruising. 12:46 Respiratory: Positive for cough, dyspnea on exertion, shortness of breath, Negative for hemoptysis, orthopnea, pleurisy, wheezing. Exam: 12:46 Constitutional: This is a well developed, well nourished patient who is awake, alert, kdr and in no acute distress. Head/Face: Normocephalic, atraumatic. Eyes: Pupils equal round and reactive to light, extra-ocular motions intact. Lids and lashes normal. Conjunctiva and sclera are non-icteric and not injected. Cornea within normal limits. Periorbital areas with no swelling, redness, or edema. Neck: Trachea midline, no thyromegaly or masses palpated, and no cervical lymphadenopathy. Supple, full range of motion without nuchal rigidity, or vertebral point tenderness. No Meningismus. Chest/axilla: Normal chest wall appearance and motion. Nontender with no deformity. No lesions are appreciated. Cardiovascular: Regular rate and rhythm with a normal S1 and S2. No gallops, murmurs, or rubs. Normal PMI, no JVD. No pulse deficits. Abdomen/GI: Soft, non-tender, with normal bowel sounds. No distension or tympany. No guarding or rebound. No evidence of tenderness throughout. Back: No spinal tenderness. No costovertebral tenderness. Full range of motion. Skin: Warm, dry with normal turgor. Normal color with no rashes, no lesions, and no evidence of cellulitis. MS/ Extremity: Pulses equal, no cyanosis. Neurovascular intact. Full, normal range of motion. Neuro: Awake and alert, GCS 15, oriented to person, place, time, and situation. Cranial nerves II-XII grossly intact. Motor strength 5/5 in all extremities. Sensory grossly intact. Cerebellar exam normal. Normal gait. Psych: Awake, alert, with orientation to person, place and time. Behavior, mood, and affect are within normal limits. 12:46 Respiratory: mild respiratory distress is noted, Respirations: normal, Breath sounds: rales, that are mild, are scattered, are located in both bases, rhonchi, that are mild, are scattered, stridor, is not appreciated. 15:17 ECG was reviewed by the Attending Physician. kdr Vital Signs: 11:17 BP 155 / 62; Pulse 79; Resp 16 S; Temp 99.8(O); Pulse Ox 84% on R/A; Pain 0/10; aa5 11:19 Pulse Ox 92% on 2 lpm NC; aa5 11:30 BP 165 / 78; Pulse 74; Resp 14 S; Pulse Ox 90% on 2 lpm NC; aa5 12:00 BP 167 / 76; Pulse 73; Resp 16 S; Pulse Ox 93% on 2 lpm NC; aa5 12:30 BP 151 / 75; Pulse 72; Resp 16 S; Pulse Ox 93% on 2 lpm NC; aa5 13:00 Temp 99.0(O); aa5 13:25 BP 178 / 80; Pulse 73; Resp 16 S; Pulse Ox 93% ; aa5 14:08 BP 174 / 68; Pulse 72; Resp 18 S; Pulse Ox 96% ; aa5 15:00 BP 162 / 79; Pulse 71; Resp 16 S; Pulse Ox 95% ; aa5 13:25 High-flow oxygen aa5 14:08 High-flow oxygen aa5 15:00 High-flow oxygen via NC continued. aa5 MDM: 12:26 Patient medically screened. kdr 12:46 Data reviewed: vital signs, nurses notes, lab test result(s), radiologic studies. kdr Counseling: I had a detailed discussion with the patient and/or guardian regarding: the historical points, exam findings, and any diagnostic results supporting the discharge/admit diagnosis, lab results, radiology results, the need for further work-up and treatment in the hospital. Physician consultation: Raz Jauregui MD regarding admission. 04/26 11:20 Order name: Basic Metabolic Panel; Complete Time: 12:19 ph 04/26 11:20 Order name: CBC with Diff; Complete Time: 17:07 ph 04/26 11:20 Order name: LFT's; Complete Time: 12:19 ph 04/26 11:20 Order name: Magnesium; Complete Time: 12:19 ph 04/26 11:20 Order name: NT PRO-BNP; Complete Time: 12:19 ph 04/26 11:20 Order name: PT-INR; Complete Time: 12:19 ph 04/26 11:20 Order name: Troponin (emerg Dept Use Only); Complete Time: 12:19 ph 04/26 11:20 Order name: Blood Culture Adult (2) ph 04/26 11:20 Order name: Lactate; Complete Time: 12:19 ph 04/26 11:20 Order name: Procalcitonin; Complete Time: 12:33 ph 04/26 11:54 Order name: COVID-19 aa5 04/26 11:54 Order name: Flu; Complete Time: 17:07 [facility] 04/26 12:31 Order name: Basic Metabolic Panel [facility] [place] 04/26 12:31 Order name: Basic Metabolic Panel [facility] 04/26 12:31 Order name: CBC with Automated Diff [facility] 04/26 12:31 Order name: CBC with Automated Diff [facility] 04/26 12:31 Order name: NT PRO-BNP [facility] [place] 04/26 12:31 Order name: NT PRO-BNP [facility] [place] 04/26 12:31 Order name: Troponin I [facility] 04/26 12:31 Order name: Troponin I; Complete Time: 17:07 [facility] [place] 04/26 12:31 Order name: Troponin I [facility] 04/26 12:35 Order name: Manual Differential; Complete Time: 17:07 [facility] 04/26 12:36 Order name: ABG; Complete Time: 17:07 [facility] 04/26 13:16 Order name: UDS [facility] 04/26 14:09 Order name: Urine Dipstick--Ancillary (enter results) 04/26 14:09 Order name: Urine --Ancillary (enter results) 04/26 14:20 Order name: Urine --Ancillary; Complete Time: 17:07 [facility] 04/26 14:20 Order name: Urine Dipstick-Ancillary; Complete Time: 17:07 [facility] [place] 04/26 14:26 Order name: SARS-COV-2 RT PCR; Complete Time: 17:07 [facility] 04/26 14:41 Order name: Urine Drug Screen; Complete Time: 17:07 [facility] 04/26 11:20 Order name: XRAY Chest (1 view); Complete Time: 12:33 ph 04/26 11:20 Order name: EKG; Complete Time: 11:21 ph 04/26 11:20 Order name: Cardiac monitoring; Complete Time: 11:32 ph 04/26 11:20 Order name: EKG - Nurse/Tech; Complete Time: 11:32 ph 04/26 11:20 Order name: IV Saline Lock; Complete Time: 11:32 ph 04/26 11:20 Order name: Labs collected and sent; Complete Time: 11:32 ph 04/26 11:20 Order name: O2 Per Protocol; Complete Time: 11:32 ph 04/26 11:20 Order name: O2 Sat Monitoring; Complete Time: 11:32 ph 04/26 11:54 Order name: Straight Cath - Urine; Complete Time: 14:04 aa5 04/26 12:23 Order name: CT Chest Wo Con kdr 04/26 12:31 Order name: Regular; Complete Time: 14:08 [facility] 04/26 14:08 Order name: CT; Complete Time: 17:07 [facility] EC:17 Rate is 76 beats/min. Rhythm is regular, Sinus Rhythm with Occasional PVCs. QRS [place] is kdr Normal. DC interval is normal. QRS interval is normal. QT interval is prolonged. No Q waves. Clinical impression: NSR w/ Non-specific ST/T Changes. Administered Medications: 13:05 Drug: Lasix 40 mg Route: IVP; Site: right wrist; aa5 13:10 Follow up: Response: No adverse reaction aa5 13:05 Drug: Zithromax 500 mg Route: PO; aa5 15:00 Follow up: Response: No adverse reaction aa5 13:08 Drug: Rocephin - (cefTRIAXone) 1 grams {Note: given slow IVP per pharmacy at this time. aa5 .} Route: IVPB; Infused Over: 30 mins; Site: right wrist; 13:15 Follow up: Response: No adverse reaction aa5 13:09 Drug: Decadron - Dexamethasone 6 mg Route: IVP; Site: right wrist; aa5 13:15 Follow up: Response: No adverse reaction aa5 Disposition: 04/26/20 12:26 Hospitalization ordered by Raz Jauregui for Inpatient Admission. Preliminary diagnosis are Pneumonia, unspecified organism, Heart failure. - Bed requested for Telemetry/MedSurg (Inpatient). - Status is Inpatient Admission. sv - Condition is Serious. - Problem is new. - Symptoms are unchanged. Signatures: Dispatcher [employer] EDAlena Tran RN Karen Saeed RN Sandro Appiah MD MD [facility] Iwona Castro, RN RN aa Melia Gomez RN RN ph Corrections: (The following items were deleted from the chart) 14:48 12:26 Hospitalization Ordered by Raz Jauregui MD for Inpatient Admission. Preliminary dw diagnosis is Pneumonia, unspecified organism; Heart failure. Bed requested for Telemetry/MedSurg (Inpatient). Status is Inpatient Admission. Condition is Serious. Problem is new. Symptoms are unchanged. kdr 16:02 14:48 04/26/2020 12:26 Hospitalization Ordered by Raz Jauregui MD for Inpatient sv Admission. Preliminary diagnosis is Pneumonia, unspecified organism; Heart failure. Bed requested for Telemetry/MedSurg (Inpatient). Status is Inpatient Admission. Condition is Serious. Problem is new. Symptoms are unchanged. dw
[2020-04-26] MEDS ORDERED: ACETAMINOPHEN 500 MG TAB PO PRN (12:29)
[2020-04-26 12:35] LABS: Blood Morphology Comment NOT SEEN (NOT SEEN); Platelet Estimate ADEQ
[2020-04-26 12:49] LABS: Blood O2 Saturation 85.3 % (92-98.5)
[2020-04-26] MEDS ORDERED: AZITHROMYCIN 250 MG TAB ONE (13:21)
[2020-04-26] MEDS ORDERED: dexAMETHasone 4 MG/ML VIAL ONE (13:22)
[2020-04-26] MEDS ORDERED: CEFTRIAXONE/SWI 1gm 1 GM/10 ML SYR ONE (13:22)
[2020-04-26] MEDS ORDERED: FUROSEMIDE 40 MG/4 ML VIAL ONE (13:22)
--- NOTE | 2020-04-26 14:07 | RAD REPORT ---
EXAM DESCRIPTION: CT - Thorax Wo Con - 04/26/2020 1:50 pm CLINICAL HISTORY: sob COMPARISON: 2019 TECHNIQUE: Computed axial tomography of the chest was obtained. Contrast was not requested. All CT scans are performed using dose optimization technique as appropriate and may include automated exposure control or mA/KV adjustment according to patient size. FINDINGS: The evaluation of mediastinum, jordin and vessels is limited secondary to lack of IV contras t administration. Moderate patchy alveolar opacities left upper lobe. Mild additional bilateral pulmonary opacities A pleural effusion is not present. No pericardial effusion IMPRESSION: Moderate patchy alveolar opacities left upper lobe probably pneumonia Mild additional bilateral pulmonary opacities may represent mild pulmonary edema
[2020-04-26 14:20] LABS: Urine Blood NEGATIVE (NEG); Urine Glucose 1+ (NEG); Urine Protein 3+ (NEG)
[2020-04-26 14:41] LABS: Barbiturates NEGATIVE (NEGATIVE); Benzodiazepines NEGATIVE (NEGATIVE); Cocaine NEGATIVE (NEGATIVE); METHAMPHETAM NEGATIVE (NEGATIVE); Methadone NEGATIVE (NEGATIVE); Opiates NEGATIVE (NEGATIVE); Phencyclidine NEGATIVE (NEGATIVE); THC Cannibis NEGATIVE (NEGATIVE)
--- NOTE | 2020-04-26 16:02 | ER ---
Nurse's Notes [facility] Name: Danni Huber Age: 45 yrs Sex: Female : 1975 Arrival Date: 04/26/2020 Time: 11:17 Bed 5 Private MD: Diagnosis: Pneumonia, unspecified organism;Heart failure Presentation: 04/26 11:17 Chief complaint: EMS states: "family called because pt was difficult to arouse this aa5 morning, upon arrival to pt's home, BP was 212/90, O2 sat was 74% RA and pt was drowsy but able to arouse, O2 sat increased to 95% with non-rebreather". Pt currently A\\T\\O x 4 but drowsy and with generalized weakness. Pt reports SOB, denies cough. EMS also reports pt vomited multiple times before arrival to ER. Care JAZZ MUSICIAN: 20G L AC and FSBG 126. 11:17 Coronavirus screen: shortness of breath, low grade fever Client presents with at least aa5 one sign or symptom that may indicate coronavirus-19. Standard/surgical mask placed on the client. Provider contacted for isolation considerations. Ebola Screen: Patient negative for fever greater than or equal to 101.5 degrees Fahrenheit, and additional compatible Ebola Virus Disease symptoms. Initial Sepsis Screen: Does the patient meet any 2 criteria? No. Patient's initial sepsis screen is negative. Does the patient have a suspected source of infection? Yes:. Risk Assessment: Do you want to hurt yourself or someone else? Patient reports no desire to harm self or others. Onset of symptoms was April 26, 2020. 11:17 Acuity: ALEXIS 2 aa5 11:17 Method Of Arrival: EMS: [facility] aa5 Historical: - Allergies: 11:17 No Known Allergies; aa5 - Home Meds: 11:17 carvedilol 6.25 mg Oral tab 1 tab 2 times per day [Active]; duloxetine 30 mg Oral cpDR aa5 1 cap 2 times per day [Active]; Farxiga 10 mg Oral tab 1 tab once daily [Active]; gabapentin Oral [Active]; lisinopril 40 mg Oral tab 1 tab once daily [Active]; torsemide 10 mg Oral tab 1 tab twice a day [Active]; - PMHx: 11:17 Diabetes - NIDDM; Hypertension; neuropathy; Renal Disease; aa5 11:17 CHF; aa5 - PSHx: 11:17 breast reduction; ; Tubal ligation; aa5 - Immunization history:: Adult Immunizations unknown. - Social history:: Smoking status: unknown. Screenin:45 Abuse screen: Denies threats or abuse. Nutritional screening: No deficits noted. aa5 Tuberculosis screening: No symptoms or risk factors identified. Fall Risk IV access (20 points). Mental Status- Overestimates/Forgets Limitations (15 pts.). Total Patel Fall Scale indicates Low Risk Score (25-44 pts). Fall prevention measures have been instituted. Side Rails Up X 2 Placed close to Nursing Station. Assessment: 11:18 General: Appears comfortable, Behavior is calm, cooperative. Pain: Denies pain. Neuro: aa5 Level of Consciousness is alert, obeys commands, drowsy and sleepy . Oriented to person, place, time, situation, Anodizing Line Operator are weak bilaterally Moves all extremities. Weakness in bilateral arm(s) leg(s) Speech is normal, Facial symmetry appears normal, Reports "feeling tired and sleepy" . Cardiovascular: Heart tones S1 S2 present Rhythm is sinus rhythm. Respiratory: Reports shortness of breath at rest Airway is patent Respiratory effort is even, unlabored, Respiratory pattern is regular, symmetrical, Breath sounds with rales bilaterally. Denies cough. GI: Abdomen is round obese, Bowel sounds present X 4 quads. Abd is soft and non tender X 4 quads. Patient currently denies diarrhea, nausea. : No signs and/or symptoms were reported regarding the genitourinary system. EENT: No signs and/or symptoms were reported regarding the EENT system. Derm: Skin is pink, warm \\T\\ dry. Musculoskeletal: Range of motion: intact in all extremities. 12:00 Reassessment: Pt resting in bed with eyes closed, respirations even and unlabored, skin aa5 is pink/warm/dry. Pt easy to arouse to verbal stimuli. . 12:45 Reassessment: No changes from previously documented assessment. Pt remains drowsy and aa5 sleepy, easy to arouse to verbal stimuli, pt is A\\T\\O x 4 and continues to answer questions appropriately. Equal and unlabored respirations, skin is pink/warm/dry. . 12:45 Reassessment: Pt's at bedside . aa5 13:05 Reassessment: ABG was reviewed by and high-flow O2 was ordered. RT placing pt on aa5 high-flow NC. . 14:05 Reassessment: Pt accompanied to CT by me and RYAN Paniagua tech, O2 via 4 L NC at 1346. Pt aa5 now back from CT scan and placed back on high-flow O2 by RT.. 15:00 Reassessment: Pt resting in bed with eyes closed, respirations even and unlabored. Pt's aa5 at bedside. . Vital Signs: 11:17 BP 155 / 62; Pulse 79; Resp 16 S; Temp 99.8(O); Pulse Ox 84% on R/A; Pain 0/10; aa5 11:19 Pulse Ox 92% on 2 lpm NC; aa5 11:30 BP 165 / 78; Pulse 74; Resp 14 S; Pulse Ox 90% on 2 lpm NC; aa5 12:00 BP 167 / 76; Pulse 73; Resp 16 S; Pulse Ox 93% on 2 lpm NC; aa5 12:30 BP 151 / 75; Pulse 72; Resp 16 S; Pulse Ox 93% on 2 lpm NC; aa5 13:00 Temp 99.0(O); aa5 13:25 BP 178 / 80; Pulse 73; Resp 16 S; Pulse Ox 93% ; aa5 14:08 BP 174 / 68; Pulse 72; Resp 18 S; Pulse Ox 96% ; aa5 15:00 BP 162 / 79; Pulse 71; Resp 16 S; Pulse Ox 95% ; aa5 13:25 High-flow oxygen aa5 14:08 High-flow oxygen aa5 15:00 High-flow oxygen via NC continued. aa5 ED Course: 11:17 Patient arrived in ED. ds1 11:17 Arm band placed on. Patient has correct armband on for positive identification. Placed aa5 in gown. Bed in low position. Call light in reach. Side rails up X2. school bus monitor on. Pulse ox on. NIBP on. Door closed. Head of bed elevated. Patient placed on droplet and contact precautions with eye protection. 11:19 Sandro Cabrera MD is Attending Physician. kdr 11:23 EKG done, by ED staff, reviewed by Sandro Cabrera MD. sv 11:26 Initial lab(s) drawn, by me, sent to lab. aa5 11:26 Inserted saline lock: 20 gauge in right wrist, using aseptic technique. Blood collected.aa5 11:36 Second set of blood cultures drawn by me. aa5 11:43 Iwona Castro, RN is Primary Nurse. aa5 11:52 Triage completed. aa5 12:18 XRAY Chest (1 view) In Process Unspecified. EDMS 12:25 Raz Jauregui MD is Hospitalizing Provider. kdr 12:55 COVID swab sent to lab. Flu and/or RSV swab sent to lab. aa5 13:45 Straight cath inserted, using sterile technique, 16 Fr. Specimen obtained. Returned aa5 cloudy urine. Patient tolerated well. 14:08 CT Chest Wo Con Sent. sv 15:50 No provider procedures requiring assistance completed. Patient admitted, IV remains in aa5 place. Administered Medications: 13:05 Drug: Lasix 40 mg Route: IVP; Site: right wrist; aa5 13:10 Follow up: Response: No adverse reaction aa5 13:05 Drug: Zithromax 500 mg Route: PO; aa5 15:00 Follow up: Response: No adverse reaction aa5 13:08 Drug: Rocephin - (cefTRIAXone) 1 grams {Note: given slow IVP per pharmacy at this time. aa5 .} Route: IVPB; Infused Over: 30 mins; Site: right wrist; 13:15 Follow up: Response: No adverse reaction aa5 13:09 Drug: Decadron - Dexamethasone 6 mg Route: IVP; Site: right wrist; aa5 13:15 Follow up: Response: No adverse reaction aa5 Outcome: 12:26 Decision to Hospitalize by Provider. kdr 15:50 Patient left the ED. aa5 15:50 Admitted to Tele accompanied by tech, family with patient, via stretcher, with oxygen, aa5 with chart, Report called to IRENE Carmen 15:50 Condition: stable 15:50 Discharge instructions given to patient, significant other, Instructed on the need for admit, Demonstrated understanding of instructions. Signatures: Dispatcher [employer] Alena Delatorre RN RN sv Rittger, Kevin, MD MD [facility] Francisca Sampson ds1 Iwona Castro, RN RN aa5 Corrections: (The following items were deleted from the chart) 11:46 11:32 Arm band placed on aa5 11:32 Patient has correct armband on for positive identification. Placed in gown. Bed aa5 in low position. Call light in reach. Side rails up X2. 11:32 school bus monitor on. Pulse ox on. NIBP on. [facility]5 11:32 Door closed. Head of bed elevated. [facility] 11:32 Patient placed on droplet and contact precautions with eye protection. [facility] 11 11:17 Chief complaint: EMS states: "family called because pt was difficult to arouse aa5 this morning, upon arrival to pt's home, BP was 212/90, O2 sat was 74% RA and pt was drowsy but able to arouse, O2 sat increased to 95% with non-rebreather". Pt currently A\\T\\O x 4 but drowsy and with generalized weakness. Pt reports SOB, denies cough. EMS also reports pt vomited multiple times before arrival to ER. aa5 16:32 16:02 Patient left the ED. [facility]
[2020-04-26] MEDS: FUROSEMIDE 40 MG/4 ML VIAL IV SCH (17:14)
[2020-04-26] MEDS ORDERED: GLUCAGON 1 MG/VIAL IM PRN (17:21)
[2020-04-26] MEDS ORDERED: D50W 25 GM/50 ML SYRINGE IV PRN (17:21)
[2020-04-26] MEDS: carvediloL 25 MG TAB PO SCH (17:36)
[2020-04-26] MEDS ORDERED: CEFTRIAXONE/SWI 1gm 1 GM/10 ML SYR IV SCH ×2 (21:00)
[2020-04-26] MEDS ORDERED: CEFTRIAXONE 1 GM/NS 50 ML 1 GM/50 ML BAG IV SCH (21:00)
[2020-04-26] MEDS: HEPARIN 5000 UNIT/ML 1 ML VIAL SQ SCH (21:00)
[2020-04-26] MEDS: HYDRALAZINE HCL 25 MG TABLET PO SCH (21:16)
[2020-04-26] MEDS: AMLODIPINE 5 MG TAB PO SCH (21:16)
[2020-04-26] MEDS: INSULIN -REGULAR HUMAN 50 UNIT/0.5 ML ML SQ SCH (21:17)
[2020-04-27] MEDS: carvediloL 25 MG TAB PO SCH ×2 (05:11→16:59)
[2020-04-27 06:15] LABS: Absolute Lymphocytes (CBC) 0.9 K/uL (0.7-4.9); Basophils % 0.3 % (0-1.3); Hematocrit 32.1 % (36.0-45.0); Lymphocytes % 5.4 % (15.3-44.8); MPV 11.1 fL (7.6-11.3); RBC Red Blood Cell Count 3.73 M/uL (3.86-4.86)
[2020-04-27 06:17] LABS: Potassium 4.2 mmol/L (3.5-5.1)
[2020-04-27] MEDS: INSULIN -REGULAR HUMAN 50 UNIT/0.5 ML ML SQ SCH ×4 (09:41→21:10)
[2020-04-27] MEDS: DULOXETINE 30 MG CAP PO SCH (09:45)
[2020-04-27] MEDS: FUROSEMIDE 40 MG/4 ML VIAL IV SCH ×2 (09:45→17:00)
[2020-04-27] MEDS: HYDRALAZINE HCL 25 MG TABLET PO SCH ×2 (09:46→21:09)
[2020-04-27] MEDS: lisinopriL 20 MG TAB PO SCH (09:46)
[2020-04-27] MEDS: AMLODIPINE 5 MG TAB PO SCH ×2 (09:46→21:09)
[2020-04-27] MEDS: HEPARIN 5000 UNIT/ML 1 ML VIAL SQ SCH ×2 (09:47→21:09)
[2020-04-27] MEDS: AZITHROMYCIN IV 250 MG in NA CHLORIDE 0.9% 250 ML IVPB SCH (09:48)
[2020-04-27] MEDS: PIPER/TAZO/NS 2.25gm 2.25 GM/50 ML BAG IVPB SCH ×3 (10:57→16:59)
--- NOTE | 2020-04-27 11:09 | P.CNS ---
Date of Consult: 04/27/20 Reason for Consult: Pneumonia Chief Complaint: Cough History of Present Illness: Patient is 45 years of age with a history of diabetes became sick on vent has a started coughing was unarousable came here to the emergency room she is doing fine apart from slight coughing no other complaints no prior history of obstructive sleep apnea compliant with a diabetic medications Allergies No Known Drug Allergies Allergy (Verified 04/26/20 16:49) Unknown Home Medications: Gabapentin 2 cap PO DAILY WITH BREAKFAST 12/01/18 Lisinopril [Zestril] 40 mg PO DAILY 12/01/18 carvediloL [Coreg*] 25 mg PO BID #60 tab 03/05/19 Gabapentin [Neurontin*] 900 mg PO DAILY AT SUPPER 07/02/19 Hydralazine [Apresoline*] 50 mg PO TID 07/02/19 Amlodipine [Norvasc] 5 mg PO BID 04/26/20 Dulaglutide [Trulicity] 4.5 mg SQ SEECOM 04/26/20 Duloxetine HCl [Cymbalta] 60 mg PO DAILY 04/26/20 Empagliflozin [Jardiance] 25 mg PO DAILY 04/26/20 Furosemide 80 mg PO BID 04/26/20 Insulin Glargine Human [Lantus] 56 unit SQ DAILY 04/26/20 - Past Medical/Surgical History Diabetic: Yes -: DM -: HTN -: Renal dse, stage 3 -: anemia -: C section x3 -: breast reduction - Family History Father Medical History: Heart disease, Hypertension, Diabetes Notes: CHF Mother Medical History: Heart disease, Diabetes, Cancer Notes: CHF - Social History Smoking Status: Unknown if ever smoked Alcohol use: No CD- Drugs: No Caffeine use: Yes Place of Residence: Home Review of Systems General: Weakness Respiratory: Cough, Shortness of Breath Physical Examination Temp Pulse Resp BP Pulse Ox 98.6 F 74 16 162/68 H 88 L 04/27/20 08:00 04/27/20 08:00 04/27/20 08:00 04/27/20 08:00 04/27/20 08:00 General: Alert, In no apparent distress, Oriented x3 Respiratory: Clear to auscultation bilaterally, Crackles/rales (Crackles on the left upper zone) Cardiovascular: No edema, Regular rate/rhythm, Normal S1 S2 Gastrointestinal: Normal bowel sounds, Non-distended Laboratory Data (last 24 hrs) 04/26/20 11:26: PT 13.0 H, INR 1.10 04/26/20 11:26: WBC 15.5 H, Hgb 10.0 L, Hct 31.4 L, Plt Count 255 04/26/20 11:26: Sodium 140, Potassium 4.3, BUN 32 H, Creatinine 2.31 H, Glucose 143 H, Magnesium 2.5 H, Total Bilirubin 0.4, AST 8 L, ALT 11 L, Alkaline Phosphatase 105 - Problems (1) Pneumonia Current Visit: Yes Status: Acute Plan: Patient is 45 years of age admitted with acute left upper lobe pneumonia patient has moderate hypoxemia with mild hypercarbia white count is elevated gonzales virus test is negative change to nasal cannula Dc high-flow blood cultures are pending I recommend change to p.o. levofloxacin dose adjusted for renal failure possible discharge tomorrow blood pressure mildly elevated Qualifiers: Pneumonia type: due to unspecified organism
[2020-04-27] MEDS: GABAPENTIN 300 MG CAP PO SCH ×2 (11:13→21:09)
--- NOTE | 2020-04-27 11:53 | HP ---
Date of Admission: 04/27/2020 Chief Complaint: Unresponsive. History Of Present Illness: This is a 45-year-old female patient with multiple comorbidities, was doing fine in her usual state of health until yesterday morning. The patient was difficult to arouse as noted by family, so EMS was called. Upon arrival to her house, EMS noted that her oxygen saturation was 74%, blood pressure 212/90, and oxygen was applied and her oxygen saturation came up to 95%, the patient's mental status improved and she was brought into emergency room. After she was evaluated in the ER, she was admitted to the hospital with pneumonia and congestive heart failure. When I saw her this morning, she was feeling better this morning compared to yesterday. Allergies: NO KNOWN ALLERGIES. Medications: Carvedilol 25 mg 2 times a day, Trulicity once a week as prescribed by her cad application support specialist Dr. Kauffman, duloxetine 60 mg p.o. daily, Jardiance 25 mg p.o. daily in the morning, furosemide 40 mg 2 tablets p.o. 2 times a day, gabapentin 300 mg takes 2 capsules 3 times a day, but today she tells me that she is only taking 2 capsules 2 times a day, hydralazine 50 mg p.o. 2 times a day, Lantus 45 units subcutaneous injection daily, lisinopril 40 mg p.o. daily, amlodipine 5 mg p.o. 2 times a day, and Ferrocite 1 tablet by mouth 2 times a day which was just started recently. Review of Systems: Respiratory: As mentioned above. Has some cough and mucus she describes in her chest, but not able to cough it up and shortness of breath. Cardiovascular: Leg swelling. All other systems reviewed and negative. Past Medical History: Significant for diabetes mellitus with neuropathy, hypertension, diastolic congestive heart failure, hyperlipidemia, chronic kidney disease, and iron deficiency anemia. Past Surgical History: Significant for . Family History: Father; hypertension, diabetes, hyperlipidemia. Mother; and had lung cancer, COPD, coronary artery disease, diabetes, and hypertension. Social History: Positive for smoking. Use of alcohol negative. Physical Examination: Vital Signs: When she came in, weight 244 pounds, temperature 98.9, pulse 77, respiratory rate 16, blood pressure 160/70, oxygen saturation 92%. Height that is recorded in computer 5 feet 8 inches is wrong. Her correct height is 5 feet 1 inch according to office record. General: The patient appears weaker than normal, not in any respiratory distress. HEENT: Head atraumatic, normocephalic. Conjunctivae nonerythematous. Sclerae white. Mouth, no thrush or edema noted. Ears/Nose, no mass, lesion, discharge noted. Neck: Supple. No JVD, lymph nodes, bruit, thyromegaly noted. Lungs: Presence of rales noted in left upper lobe and bilateral basal region. Not using accessory muscles of respiration. Heart: Normal heart sounds, no murmur or gallop. Abdomen: Soft, bowel sounds normal. No guarding, rigidity, tenderness, mass, hepatosplenomegaly, distention, or bruit noted. Extremities: Trace leg edema. Skin: No rash, ulcer, cellulitis. Lymphatics: No lymph node enlargement in neck, supraclavicular, infraclavicular region. Neuro: No focal neurological deficit. Chest: Unremarkable. External Genitalia: Deferred. Rectal: Deferred. Laboratory Data: INR 1.10 yesterday upon admission. White count 15.5, hemoglobin 10, platelets 255. This morning; WBC 17.1, hemoglobin 10.1, platelets 254. Blood gas done yesterday; pH 7.31, pCO2 of 51.6, pO2 of 55.6, oxygen saturation 85% on 28% FiO2. Yesterday; sodium 140, potassium 4.3, chloride 108, bicarb 26, BUN 32, creatinine 2.31, glucose 143. This morning; sodium 139, potassium 4.2, chloride 105, bicarb 25, BUN 44, creatinine 2.27, glucose 233. BNP 14,005. Liver function tests normal. Troponin less than 0.02. Procalcitonin less than 0.05. Lactic acid 0.7. Yesterday's BNP was 6804. Urinalysis; 3+ protein, 1+ glucose. Urine test negative. Urine drug screen negative and COVID-19 test negative. Chest x-ray; pulmonary edema pattern noted and left upper lobe infiltrate and CAT scan of the chest also shows left upper lobe infiltrate and pulmonary edema pattern. Impression: 1. Pneumonia. 2. Pulmonary edema. 3. Congestive heart failure, chronic, diastolic, with acute exacerbation. 4. Acute respiratory failure with hypercapnia. 5. Iron deficiency anemia. 6. Acute kidney injury. 7. Chronic kidney disease, stage 3B. 8. Hypertension. 9. Type 2 diabetes mellitus, uncontrolled, with diabetic neuropathy. 10. Hyperlipidemia. Plan: Admit the patient to hospital for further evaluation and management of this problem. The patient is appropriate for inpatient and is expected to spend 2 midnights in hospital. We will consult Dr. Kendrick from Pulmonary Service. DVT prophylaxis with heparin will be given per order. Home medications will be continued. Fingerstick blood sugar with sliding scale was ordered. Yesterday, the patient received ceftriaxone and azithromycin was started. This morning, WBC count is slightly higher than yesterday, so we will not give ceftriaxone anymore, but we will start the patient on Zosyn. I will repeat chest x-ray and blood work tomorrow, give IV Lasix 40 mg every 12 hours per order, and I will see her tomorrow for followup. Echo with Doppler will be done tomorrow. Details of plan of treatment discussed with the patient. ALBERTA/LANEY Voice ID: [id number]
[2020-04-27] MEDS ORDERED: NA CHLORIDE 0.9% 250 ML ONE (23:05)
[2020-04-28] MEDS: PIPER/TAZO/NS 2.25gm 2.25 GM/50 ML BAG IVPB SCH ×4 (00:28→17:00)
[2020-04-28] MEDS: carvediloL 25 MG TAB PO SCH ×2 (05:05→17:00)
[2020-04-28 06:56] LABS: Basophils % 0.6 % (0-1.3); Hematocrit 31.2 % (36.0-45.0); Lymphocytes % 13.2 % (15.3-44.8); MPV 10.1 fL (7.6-11.3); RBC Red Blood Cell Count 3.62 M/uL (3.86-4.86)
[2020-04-28 07:10] LABS: Magnesium 2.6 mg/dL (1.8-2.4); Potassium 4.4 mmol/L (3.5-5.1)
[2020-04-28] MEDS: AZITHROMYCIN IV 250 MG in NA CHLORIDE 0.9% 250 ML IVPB SCH (08:00)
[2020-04-28] MEDS: INSULIN -REGULAR HUMAN 50 UNIT/0.5 ML ML SQ SCH ×4 (08:13→20:58)
[2020-04-28] MEDS: HEPARIN 5000 UNIT/ML 1 ML VIAL SQ SCH ×2 (08:14→20:57)
[2020-04-28] MEDS: HYDRALAZINE HCL 25 MG TABLET PO SCH ×2 (08:14→20:56)
[2020-04-28] MEDS: AMLODIPINE 5 MG TAB PO SCH ×2 (08:14→20:56)
[2020-04-28] MEDS: lisinopriL 20 MG TAB PO SCH (08:14)
[2020-04-28] MEDS: DULOXETINE 30 MG CAP PO SCH (08:14)
[2020-04-28] MEDS: FUROSEMIDE 40 MG/4 ML VIAL IV SCH ×2 (08:14→16:01)
[2020-04-28] MEDS: GABAPENTIN 300 MG CAP PO SCH ×2 (08:14→20:56)
--- NOTE | 2020-04-28 08:43 | RAD REPORT ---
EXAM DESCRIPTION: RAD - Chest Single View - 04/28/2020 7:35 am CLINICAL HISTORY: pneumonia, pulm edema Chest pain. COMPARISON: Chest Single View dated 04/26/2020; Chest Pa And Lat (2 Views) dated 07/02/2019; Chest Si ngle View dated 03/01/2019; Chest Single View dated 02/28/2019; Thorax Wo Con dated 04/26/2020 FINDINGS: Portable technique limits examination quality. Moderate bilateral pulmonary opacities are noted, with mild worsening opacities in the right lung bas e laterally. The heart is moderately enlarged in size. No displaced fractures. IMPRESSION: Mild worsening right lung base aeration since comparative study.
[2020-04-28] MEDS: ALBUTEROL 2.5 MG/3 ML NEB SOL NEB PRN ×3 (09:43→23:45)
[2020-04-28] MEDS: IPRATROPIUM BROM 0.5MG/2.5ML NEB PRN ×3 (09:43→23:45)
--- NOTE | 2020-04-28 14:57 | ECHO ---
HEIGHT: 5 ft 8 in WEIGHT: 244 lb 0 oz DATE OF STUDY: 04/28/[address]: Raz Jauregui MD 2-DIMENSIONAL: YES M.MODE: YES DOPPLER: YES COLOR FLOW: YES TDS: PORTABLE: DEFINITY: BUBBLE STUDY: DIAGNOSIS: CONGESTIVE HEART FAILURE CARDIAC HISTORY: CATHERIZATION: SURGERY: PROSTHETIC VALVE: PACEMAKER: MEASUREMENTS (cm) DIASTOLIC (NORMALS) SYSTOLIC (NORMALS) IVSd 1.3 (0.6-1.2) LA Diam 3.8 (1.9-4.0) LVEF 65% LVIDd 3.8 (3.5-5.7) LVIDs 2.5 (2.0-3.5) %FS 35% LVPWd 1.4 (0.6-1.2) Ao Diam 3.0 (2.0-3.7) 2 DIMENSIONAL ASSESSMENT: RIGHT ATRIUM: NORMAL LEFT ATRIUM: NORMAL RIGHT VENTRICLE: NORMAL LEFT VENTRICLE: MILD LEFT VENTRICULAR HYPERTROPHY TRICUSPID VALVE: MILD TRICUSPID REGURGITATION MITRAL VALVE: NORMAL PULMONIC VALVE: NORMAL AORTIC VALVE: NORMAL PERICARDIAL EFFUSION: NONE AORTIC ROOT: NORMAL LEFT VENTRICULAR WALL MOTION: NORMAL DOPPLER/COLOR FLOW: SEE BELOW COMMENTS: NORMAL LEFT VENTRICULAR EJECTION FRACTION 55-60% WITH NORMAL WALL MOTION. DIASTOLIC DYSFUNCTION. MODERATE PULMONARY HYPERTENSION WITH RIGHT VENTRICULAR SYSTOLIC PRESSURE OF 45-50 mmHg. MILD LEFT VENTRICULAR HYPERTROPHY. TECHNOLOGIST: CECE JONES
--- NOTE | 2020-04-28 17:21 | P.CNS ---
Date of Consult: 04/28/20 Reason for Consult: ELKIN/ CKD Requesting Physician: Raz Jauregui Chief Complaint: Cough History of Present Illness: 45 yo HF CKD, CHF presented to the ER with severe, progressive dyspnea with associated AMS. Her children had to call her sister to get help. She denies NSAIDs. No difficulty with urination. She is feeling better today with less edema. She admits to a poor diet with lots of sugar. Reports chronic diarrhea for the past year. She smokes cigarettes daily. 12:46 This 45 yrs old Female presents to ER via EMS with complaints of Weakness, kdr Drowsy. 12:46 The patient presents with decreased mental status, decreased responsiveness. Onset: The kdr symptoms/episode began/occurred gradually, today. Possible causes: sepsis, the patient has had a history of a fever. Associated signs and symptoms: Pertinent positives: confusion, weakness. Patient's baseline: Neuro: alert and fully oriented, Motor: no deficits, Ambulation: walks without assistance, Speech: normal, The patient has a previous history of. The patient has not experienced similar symptoms in the past. The patient has not recently seen a physician. Allergies No Known Drug Allergies Allergy (Verified 04/26/20 16:49) Unknown Home medications list reviewed: Yes Home Medications: Gabapentin 2 cap PO DAILY WITH BREAKFAST 12/01/18 Lisinopril [Zestril] 40 mg PO DAILY 12/01/18 carvediloL [Coreg*] 25 mg PO BID #60 tab 03/05/19 Gabapentin [Neurontin*] 900 mg PO DAILY AT SUPPER 07/02/19 Hydralazine [Apresoline*] 50 mg PO TID 07/02/19 Amlodipine [Norvasc] 5 mg PO BID 04/26/20 Dulaglutide [Trulicity] 4.5 mg SQ SEECOM 04/26/20 Duloxetine HCl [Cymbalta] 60 mg PO DAILY 04/26/20 Empagliflozin [Jardiance] 25 mg PO DAILY 04/26/20 Furosemide 80 mg PO BID 04/26/20 Insulin Glargine Human [Lantus] 56 unit SQ DAILY 04/26/20 - Past Medical/Surgical History Diabetic: Yes -: DM -: HTN -: Renal dse, stage 3 -: anemia -: C section x3 -: breast reduction - Family History Father Medical History: Heart disease, Hypertension, Diabetes Notes: CHF Mother Medical History: Heart disease, Diabetes, Cancer Notes: CHF - Social History Smoking Status: Unknown if ever smoked Alcohol use: No CD- Drugs: No Caffeine use: Yes Place of Residence: Home Review of Systems 10-point ROS is otherwise unremarkable General: Weakness, Malaise Respiratory: SOB with Excertion Cardiovascular: Edema Neurological: Weakness Physical Examination Temp Pulse Resp BP Pulse Ox 97.1 F 60 20 144/65 H 93 04/28/20 16:00 04/28/20 17:00 04/28/20 16:00 04/28/20 17:00 04/28/20 16:00 General: In no apparent distress, Oriented x3, Cooperative HEENT: Atraumatic Neck: Supple Respiratory: Crackles/rales Cardiovascular: Regular rate/rhythm, Edema Gastrointestinal: Soft and benign, Non-distended, No guarding Musculoskeletal: No clubbing, No contractures Integumentary: No rashes, No cyanosis Neurological: Normal speech Blood work reviewed in the chart. Imagings Data: EXAM DESCRIPTION: RAD - Chest Single View - 04/28/2020 7:35 am CLINICAL HISTORY: pneumonia, pulm edema Chest pain. COMPARISON: Chest Single View dated 04/26/2020; Chest Pa And Lat (2 Views) dated 07/02/2019; Chest Single View dated 03/01/2019; Chest Single View dated 02/28/2019; Thorax Wo Con dated 04/26/2020 FINDINGS: Portable technique limits examination quality. Moderate bilateral pulmonary opacities are noted, with mild worsening opacities in the right lung base laterally. The heart is moderately enlarged in size. No displaced fractures. IMPRESSION: Mild worsening right lung base aeration since comparative study. EXAM DESCRIPTION: CT - Thorax Wo Con - 04/26/2020 1:50 pm CLINICAL HISTORY: sob COMPARISON: 2019 TECHNIQUE: Computed axial tomography of the chest was obtained. Contrast was not requested. All CT scans are performed using dose optimization technique as appropriate and may include automated exposure control or mA/KV adjustment according to patient size. FINDINGS: The evaluation of mediastinum, jordin and vessels is limited secondary to lack of IV contrast administration. Moderate patchy alveolar opacities left upper lobe. Mild additional bilateral pulmonary opacities A pleural effusion is not present. No pericardial effusion IMPRESSION: Moderate patchy alveolar opacities left upper lobe probably pneumonia Mild additional bilateral pulmonary opacities may represent mild pulmonary edema LEFT VENTRICULAR WALL MOTION: NORMAL DOPPLER/COLOR FLOW: SEE BELOW COMMENTS: NORMAL LEFT VENTRICULAR EJECTION FRACTION 55-60% WITH NORMAL WALL MOTION. DIASTOLIC DYSFUNCTION. MODERATE PULMONARY HYPERTENSION WITH RIGHT VENTRICULAR SYSTOLIC PRESSURE OF 45-50 mmHg. MILD LVH. Conclusions/Impression: A/ ELKIN may be due to CRS, ATN or progressive CKD. Hypocalcemia CKD III with proteinuria HTN with CKD/ CHF KATHERYN? Diastolic CHF, A/C Pulmonary HTN Acute hypoxic hypercapnic respiratory failure DM II with CKD Moderate malnlutrition Anemia in chronic illness Iron deficiency Lobar PNA Tobacco dependence. P/ Continue current POC and Medications Furosemide as ordered. Continue abx ADA/ low sodium diet. No NSAIDs. AM labs. Daily weight. Counseled regarding her diet. Counseled regarding tobacco cessation. Thank you kindly for the consultation. Case reviewed with Dr. Jauregui.
[2020-04-29] MEDS: PIPER/TAZO/NS 2.25gm 2.25 GM/50 ML BAG IVPB SCH ×3 (00:13→11:59)
[2020-04-29] MEDS: ALBUTEROL 2.5 MG/3 ML NEB SOL NEB PRN (04:10)
[2020-04-29] MEDS: IPRATROPIUM BROM 0.5MG/2.5ML NEB PRN (04:10)
[2020-04-29 04:26] LABS: Absolute Lymphocytes (CBC) 1.7 K/uL (0.7-4.9); Hematocrit 26.3 % (36.0-45.0); Lymphocytes % 13.7 % (15.3-44.8); MPV 10.5 fL (7.6-11.3); RBC Red Blood Cell Count 3.09 M/uL (3.86-4.86)
[2020-04-29 04:39] LABS: Magnesium 2.6 mg/dL (1.8-2.4); Potassium 4.5 mmol/L (3.5-5.1); Uric Acid 8.9 mg/dL (2.6-6.0)
[2020-04-29] MEDS: carvediloL 25 MG TAB PO SCH (05:46)
[2020-04-29 05:49] LABS: Urine Appearance CLEAR; Urine Bilirubin NEGATIVE (NEG); Urine Blood NEGATIVE (NEG); Urine Color YELLOW; Urine Glucose 1+ (NEG); Urine Protein 2+ (NEG); Urine Specific Gravity 1.015 (1.005-1.030); Urine Urobilinogen 0.2 mg/dL (0.2-1.0)
[2020-04-29 05:57] LABS: Urine Protein/Creatinine Ratio 1.5 ratio (<0.15)
[2020-04-29 06:03] LABS: Urine Amorphous Sediment 1+ /HPF (NONE SEEN); Urine Bacteria <20 /HPF (<20); Urine Culture Reflex Order NOT NEEDED; Urine RBC <5 /HPF (NONE SEEN)
--- NOTE | 2020-04-29 06:25 | PN ---
Date of Progress Note: 04/28/2020 Subjective: Patient was seen this morning for followup. No new complaints, problems reported by pat zach, lying in bed, not in distress. Objective: Vital Signs: Reviewed. HEENT: Unremarkable. Lungs: Clear to auscultation except minimum rales noted in lung bases. Heart: Sounds normal. Abdomen: Soft. Bowel sounds normal. No guarding, rigidity, tenderness, distention. Extremities: Trace leg edema. Laboratory Data: White count 15.3, hemoglobin 10, platelets 252. Sodium 138, potassium 4.4, chlorid e 105, bicarb 27, BUN 48, creatinine 2.44, glucose 159. ProBNP 9033. Impression: 1.Pneumonia. 2.Pulmonary edema. 3.Congestive heart failure, chronic, diastolic, with acute exacerbation. 4.Hypertension. 5.Diabetes mellitus. 6.Acute kidney injury with chronic kidney disease stage 3. We will go ahead and consult safety associate for patient's worsening of renal function. Continue curren t antibiotics as well as diuretic therapy. Echocardiogram shows normal ejection fraction. We will continue to follow up with home health clinical supervisor, Dr. Kendrick and now with a safety associate. We will repeat b trugn work tomorrow. ALBERTA/MODL Voice ID: [id number] Report ID: [id number]
--- NOTE | 2020-04-29 07:53 | P.PN ---
Date of Service: 04/29/20 Vital Signs Temp Pulse Resp BP Pulse Ox 97.0 F 64 19 156/67 H 98 04/29/20 04:00 04/29/20 05:46 04/29/20 04:00 04/29/20 05:46 04/29/20 04:00 Medications Acetaminophen (Tylenol -Extra Strength) 500 mg PO Q6H PRN PRN Reason: temp > 101.0 Stop: 05/26/20 12:30 Albuterol Sulfate (Proventil 0.083% Neb Soln) 2.5 mg NEB Q4H PRN PRN Reason: WHEEZING Stop: 05/26/20 12:30 Last Admin: 04/29/20 04:10 Dose: 2.5 mg Documented by: Amlodipine Besylate (Norvasc) 5 mg PO BID ERNESTO Stop: 05/26/20 21:01 Last Admin: 04/28/20 20:56 Dose: 5 mg Documented by: Calcitriol (Rocaltrol) 0.5 mcg PO DAILY ERNESTO Stop: 05/29/20 09:01 Carvedilol (Coreg) 25 mg PO BID 6AM 6PM ERNESTO Stop: 05/26/20 18:01 Last Admin: 04/29/20 05:46 Dose: 25 mg Documented by: Cholecalciferol (Vitamin D 5,000 Iu Cap) 5,000 unit PO DAILY ERNESTO Stop: 05/29/20 09:01 Dextrose (Dextrose 50% Syringe) 12.5 gm IV PRN PRN; Protocol PRN Reason: HYPOGLYCEMIA Stop: 05/26/20 17:22 Duloxetine HCl (Cymbalta Delayed Release Pellets) 60 mg PO DAILY ERNESTO Stop: 05/27/20 09:01 Last Admin: 04/28/20 08:14 Dose: 60 mg Documented by: Furosemide (Lasix) 40 mg IV BIDL ERNESTO Stop: 05/26/20 17:01 Last Admin: 04/28/20 16:01 Dose: 40 mg Documented by: Gabapentin (Neurontin) 600 mg PO BID ERNESTO Stop: 05/27/20 10:31 Last Admin: 04/28/20 20:56 Dose: 600 mg Documented by: Glucagon (Glucagen) 1 mg IM 1X PRN; Protocol PRN Reason: HYPOGLYCEMIA Stop: 05/26/20 17:22 Heparin Sodium (Porcine) (Heparin 5,000 Units/Ml) 5,000 unit SQ Q12HR ERNESTO Stop: 05/26/20 21:01 Last Admin: 04/28/20 20:57 Dose: 5,000 unit Documented by: Hydralazine HCl (Apresoline) 50 mg PO BID ERNESTO Stop: 05/26/20 21:01 Last Admin: 04/28/20 20:56 Dose: 50 mg Documented by: Azithromycin 250 mg/ Sodium (Chloride) 250 mls @ 250 mls/hr IVPB DAILY [facility]; Protocol Stop: 05/27/20 09:01 Last Admin: 04/28/20 08:00 Dose: 250 mls Documented by: Piperacillin/Tazobactam/Sod Chloride (Zosyn 2.25 Gm/50 Ml Ivpb) 2.25 gm in 50 mls @ 100 mls/hr IVPB Q6HR ERNESTO; Protocol Stop: 05/27/20 09:01 Last Admin: 04/29/20 05:51 Dose: 50 mls Documented by: Insulin Human Regular (Novolin -R) 0 unit SQ ACHS ERNESTO; Protocol Stop: 05/26/20 21:01 Last Admin: 04/28/20 20:58 Dose: 5 unit Documented by: Ipratropium [place] (Atrovent Neb) 0.5 mg NEB Q4H PRN PRN Reason: WHEEZING Stop: 05/26/20 12:30 Last Admin: 04/29/20 04:10 Dose: 0.5 mg Documented by: Lisinopril (Prinivil) 40 mg PO DAILY ERNESTO Stop: 05/27/20 09:01 Last Admin: 04/28/20 08:14 Dose: 40 mg Documented by: Sodium Chloride (Normal Saline Flush) 10 ml IV BID [facility] Stop: 05/26/20 21:01 Last Admin: 04/28/20 20:57 Dose: 10 ml Documented by: Microbiology Results 04/26/20 11:36 Blood - Blood Aerobic Blood Culture - Preliminary No growth in 24 hours. 04/26/20 11:36 Blood - Blood Anaerobic Blood Culture - Final 04/26/20 11:26 Blood - Blood Aerobic Blood Culture - Preliminary No growth in 24 hours. 04/26/20 11:26 Blood - Blood Anaerobic Blood Culture - Preliminary No growth in 24 hours. Assessment/ Plan: Nephrology CPS improved without CP or SOB. +CASTELLANOS +Appetite No acute events overnight. Vitals, medications, blood work and imaging reviewed in the chart. General: In no apparent distress, Oriented x3, Cooperative HEENT: Atraumatic Neck: Supple Respiratory: Crackles/rales Cardiovascular: Regular rate/rhythm, Edema Gastrointestinal: Soft and benign, Non-distended, No guarding Musculoskeletal: No clubbing, No contractures Integumentary: No rashes, No cyanosis Neurological: Normal speech Blood work reviewed in the chart. Imagings Data: EXAM DESCRIPTION: RAD - Chest Single View - 04/28/2020 7:35 am CLINICAL HISTORY: pneumonia, pulm edema Chest pain. COMPARISON: Chest Single View dated 04/26/2020; Chest Pa And Lat (2 Views) dated 07/02/2019; Chest Single View dated 03/01/2019; Chest Single View dated 02/28/2019; Thorax Wo Con dated 04/26/2020 FINDINGS: Portable technique limits examination quality. Moderate bilateral pulmonary opacities are noted, with mild worsening opacities in the right lung base laterally. The heart is moderately enlarged in size. No displaced fractures. IMPRESSION: Mild worsening right lung base aeration since comparative study. EXAM DESCRIPTION: CT - Thorax Wo Con - 04/26/2020 1:50 pm CLINICAL HISTORY: sob COMPARISON: 2019 TECHNIQUE: Computed axial tomography of the chest was obtained. Contrast was not requested. All CT scans are performed using dose optimization technique as appropriate and may include automated exposure control or mA/KV adjustment according to patient size. FINDINGS: The evaluation of mediastinum, jordin and vessels is limited secondary to lack of IV contrast administration. Moderate patchy alveolar opacities left upper lobe. Mild additional bilateral pulmonary opacities A pleural effusion is not present. No pericardial effusion IMPRESSION: Moderate patchy alveolar opacities left upper lobe probably pneumonia Mild additional bilateral pulmonary opacities may represent mild pulmonary edema LEFT VENTRICULAR WALL MOTION: NORMAL DOPPLER/COLOR FLOW: SEE BELOW COMMENTS: NORMAL LEFT VENTRICULAR EJECTION FRACTION 55-60% WITH NORMAL WALL MOTION. DIASTOLIC DYSFUNCTION. MODERATE PULMONARY HYPERTENSION WITH RIGHT VENTRICULAR SYSTOLIC PRESSURE OF 45-50 mmHg. MILD LVH. Conclusions/Impression: A/ ELKIN may be due to CRS, ATN or progressive CKD. Hypocalcemia CKD III with proteinuria HTN with CKD/ CHF KATHERYN? Diastolic CHF, A/C Pulmonary HTN ILD/ Pulmonary fibrosis Acute hypoxic hypercapnic respiratory failure DM II with CKD Moderate malnlutrition Anemia in chronic illness Iron deficiency Lobar PNA Tobacco dependence. P/ Continue current POC and Medications Change to oral furosemide. Continue abx Follow up with pulmonary. ADA/ low sodium diet. No NSAIDs. AM labs. Daily weight.
--- NOTE | 2020-04-29 08:35 | P.PN ---
Subjective Date of Service: 04/29/20 Chief Complaint: Cough Subjective: Improving (doing much better. No new complaints) Review of Systems General: Weakness Respiratory: Shortness of Breath Physical Examination - Vital Signs Temperature: 97.0 F Blood Pressure: 156/67 Pulse: 64 Respirations: 19 Pulse Ox (%): 98 - Physical Exam General: Alert, Oriented x3 Respiratory: Clear to auscultation bilaterally, Diminished Cardiovascular: No edema, Normal S1 S2 Assessment & Plan - Problems (Diagnosis) (1) Pneumonia Current Visit: Yes Status: Acute Plan: Pt is improving. WBC declining Qualifiers: Pneumonia type: due to unspecified organism (2) Postinflammatory pulmonary fibrosis Current Visit: No Status: Acute Plan: Resp failure. ILD on CT scan. CILD. Pt has home O2. d/C on O2 2 l/min. diastolic dysfunction Pulm HTN
[2020-04-29] MEDS: GABAPENTIN 300 MG CAP PO SCH (08:41)
[2020-04-29] MEDS: lisinopriL 20 MG TAB PO SCH (08:42)
[2020-04-29] MEDS: FUROSEMIDE 40 MG/4 ML VIAL IV SCH (08:42)
[2020-04-29] MEDS: AMLODIPINE 5 MG TAB PO SCH (08:42)
[2020-04-29] MEDS: HYDRALAZINE HCL 25 MG TABLET PO SCH (08:42)
[2020-04-29] MEDS: DULOXETINE 30 MG CAP PO SCH (08:42)
[2020-04-29] MEDS: HEPARIN 5000 UNIT/ML 1 ML VIAL SQ SCH (08:42)
[2020-04-29] MEDS: AZITHROMYCIN IV 250 MG in NA CHLORIDE 0.9% 250 ML IVPB SCH (08:43)
[2020-04-29] MEDS: INSULIN -REGULAR HUMAN 50 UNIT/0.5 ML ML SQ SCH ×2 (08:43→11:59)
[2020-04-29 08:53] VITALS: O2SAT 94
[2020-04-29] MEDS ORDERED: CALCITROL 0.25 MCG CAP PO SCH (09:00)
[2020-04-29] MEDS ORDERED: VITAMIN D 5,000 UNIT CAP PO SCH (09:00)
--- NOTE | 2020-04-29 11:24 | RAD REPORT ---
EXAM DESCRIPTION: RAD - Chest Pa And Lat (2 Views) - 04/29/2020 11:16 am CLINICAL HISTORY: pneumonia, pulm edema COMPARISON: Portable chest April 28, CT chest April 26 TECHNIQUE: Frontal and lateral views of the chest were obtained. FINDINGS: The lungs are underinflated but similar in volume to the prior film. Interstitial and alve olar opacities are scattered in the mid and lower right lung field. More prominent airspace opacifica tion is seen in the left perihilar region extending into the left upper lobe. Left lung base opacific ation present as well. Lung parenchymal findings are not substantially different from the prior imagi ng. No improvement noted. Trachea is midline. Heart size is normal and central vasculature is within normal limits. No pleural effusion or pneumo thorax seen. No acute bony finding noted. No aortic abnormality. IMPRESSION: Extensive bilateral lung parenchymal opacification, worse on the left. Findings are not substantially different from the comparison studies.
[2020-04-29 12:46] VITALS: BP 134/61; TEMP 96.9
[2020-04-29 14:02] VITALS: BMI 36.6
--- NOTE | 2020-04-29 23:22 | DS ---
Date of Discharge: 04/29/2020 Disposition: Discharged to go home. Physical Examination: HEENT: Unremarkable. Lungs: Clear to auscultation. No rhonchi. No rales. Not using any accessory muscles of respiratio n. Heart: Sounds normal. Abdomen: Soft. Bowel sounds normal. No guarding, rigidity, tenderness, or distention. Extremities: No leg edema. Laboratory Data: Upon admission, white count 15.5, hemoglobin 10, platelets 255. This morning, whit e count 12.3, hemoglobin 8.6, platelets 208. Today, sodium 138, potassium 4.5, chloride 105, bicarb 28, BUN 53, creatinine 2.63, glucose 132, proBNP 5827. Echocardiogram done during this hospital stay , ejection fraction 65%, moderate pulmonary hypertension, left ventricular hypertrophy. Discharge Medications And Instructions: 1.Continue all prior home medication except stop Jardiance. 2.Stop smoking. 3.Take Augmentin 500 mg 2 times a day for 10 days. 4.Follow up at my office next week on Tuesday. 5.Follow up with Dr. Kendrick in 2-3 weeks. Hospital Course: This is a 45-year-old female patient admitted to the hospital with shortness of prieto ath. Please see dictated H and P for more information. The patient was admitted to the hospital wit h pneumonia and pulmonary edema. Initially, she had chest x-ray and CAT scan of the chest done. She was given IV Lasix and IV antibiotics. Overall, her condition has improved, shortness of breath has improved, white count has improved. Dr. Kendrick from Pulmonary was consulted and the patient had m ultiple chest x-ray done, last chest x-ray was today and I did discuss details with Dr. Kendrick. He has informed me that the patient has chronic fibrotic changes in her lung and from Pulmonary point o f view, he has released her to go home, medically she is stable for discharge. She does need home ox ygen and Dr. Kendrick has set up her home oxygen, so today she will be discharged to go home with homar e oxygen to be used at 2 L/minute per nasal cannula all the time. Final Diagnoses: 1.Pulmonary edema. 2.Congestive heart failure, chronic, diastolic, with acute exacerbation. 3.Pneumonia. 4.Iron deficiency anemia. 5.Hypertension. 6.Type 2 diabetes mellitus with chronic kidney disease. 7.Chronic kidney disease stage 4. 8.Diabetes mellitus with peripheral neuropathy. ALBERTA/MODL Voice ID: [id number] Report ID: [id number]
== END 2020-04-29 15:50 | disposition home or self-care (01) | DRG 291 ==
LOC: ER 11:16 → ERHOLD 12:30 → 2ND 15:45
PROVIDERS: ADMIT Internal Medicine; ATTEND Internal Medicine
DX: I13.0 Hypertensive heart and chronic kidney disease with heart failure and stage 1 through stage 4 chronic kidney disease, or unspecified chronic kidney disease (principal); J18.9 Pneumonia, unspecified organism; I50.33 Acute on chronic diastolic (congestive) heart failure; J96.02 Acute respiratory failure with hypercapnia; J96.01 Acute respiratory failure with hypoxia; N17.9 Acute kidney failure, unspecified; E44.0 Moderate protein-calorie malnutrition; N18.4 Chronic kidney disease, stage 4 (severe); E11.22 Type 2 diabetes mellitus with diabetic chronic kidney disease; E11.42 Type 2 diabetes mellitus with diabetic polyneuropathy; E78.5 Hyperlipidemia, unspecified; E83.51 Hypocalcemia; I27.20 Pulmonary hypertension, unspecified; J84.10 Pulmonary fibrosis, unspecified; F17.210 Nicotine dependence, cigarettes, uncomplicated; D50.9 Iron deficiency anemia, unspecified; Z79.899 Other long term (current) drug therapy; Z98.51 Tubal ligation status; Z79.4 Long term (current) use of insulin; Z68.36 Body mass index [BMI] 36.0-36.9, adult; Z99.81 Dependence on supplemental oxygen; Z20.828 Contact with and (suspected) exposure to other viral communicable diseases
CPT/HCPCS: 36415; 51702; 71045; 71046; 71250; 80048; 80076; 80307; 81001; 81003; 81025; 82570; 82805; 82947; 83605; 83735; 83880; 84100; 84145; 84156; 84484; 84550; 85025; 85610; 87040; 87804; 93005; 93306; 94002; 94003; 94660; 94760; 96374; 96375; 99285; J0456; J0696; J1100; J1644; J1940; J7050; U0003

== ENCOUNTER 2020-05-07 08:28 | Inpatient (IN) | payer OTHER ==
--- OUTSIDE RECORDS SUMMARY | 2020-05-07 09:01 | XMS REPORT | Continuity of Care Document ---
:1975 Author Organization [facility] t Address [address] [place] [address] [address] [place] [address] Care Team Providers Name Role Phone Unavailable Unavailable Unavailable Problems Condition Condition Condition Status Onset Resolution Last Treating Co mments Source Name Details Category Date Date Treatment Clinician Date Hyperlipid Hyperlipid Problem Active [facility] emia emia 03-03 Family 00:00: Practic 00 e Morbid Morbid Problem Active [facility] obesity Obesity 03-03 Family 00:00: Practic 00 [...] Date Stop Date Source Heavy Tobacco Smoker [facility] Practice Medications Ordered Filled Start Stop Current Ordering Indication Dosage Frequency Signature Comments Components Source Medication Medication Date Date Medication? Clinician (SIG) Name Name Accu-Chek Accu-Chek No Accu-Chek [facility] Guide test Guide test Guide test Family strips strips strips Practic Check Check Check e glucose 3 glucose 3 glucose 3 times daily times daily times daily carvedilol carvedilol No 1 BID carvedilol [facility] 25 mg 25 mg 25 mg Family tablet Take tablet Take tablet Practic 1 tablet 1 tablet Take 1 e twice a day twice a day tablet by oral by oral twice a route in route in day by the the oral route morning. morning. in the morning. dexamethaso dexamethaso No 1 Q1D dexamethas [facility] ne 1 mg ne 1 mg one 1 mg Famil y tablet Take tablet Take tablet Practic 1 tablet 1 tablet Take 1 e every day every day tablet by oral by oral every day route for 1 route for 1 by oral day. day. route for 1 day. duloxetine duloxetine No 1capsul Q1D duloxetine [facility] 40 mg 40 mg e(s) 40 mg Family capsule,del capsule,del capsule,de Practic ayed ayed layed e release release release sprinkle sprinkle sprinkle Take 1 Take 1 Take 1 capsule capsule capsule every day every day every day by oral by oral by oral route in route in route in the the the morning. morning. morning. furosemide furosemide No 2 BID furosemide [facility] 40 mg 40 mg 40 mg Family tablet Take tablet Take tablet Practic 2 tablets 2 tablets Take 2 e twice a day twice a day tablets by oral by oral twice a route in route in day by the morning the morning oral route for 30 for 30 in the days. days. morning for 30 days. gabapentin gabapentin No 2capsul TID gabapentin [facility] 300 mg 300 mg e(s) 300 mg Family capsule capsule capsule Practi c Take 2 Take 2 Take 2 e capsules 3 capsules 3 capsules 3 times a day times a day times a by oral by oral day by route as route as oral route directed. directed. as directed. hydralazine hydralazine No 1 BID hydralazin [facility] 100 mg 100 mg e 100 mg Family tablet Take tablet Take tablet Practic 1 tablet 1 tablet Take 1 e twice a day twice a day tablet by oral by oral twice a route as route as day by directed. directed. oral route as directed. Jardiance Jardiance No 1 Q1D Jardiance [facility] 25 mg 25 mg 25 mg Family tablet Take tablet Take tablet Practic 1 tablet 1 tablet Take 1 e every day every day tablet by oral by oral every day route in route in by oral the morning the morning route in for 30 for 30 the days. days. morning for 30 days. Lantus Lantus No Lantus [facility] Solostar Solostar Solostar Fam erich U-100 U-100 [...] 80 lisinopril lisinopril No 1 Q1D lisinopril [facility] 40 mg 40 mg 40 mg Family tablet Take tablet Take tablet Practic 1 tablet 1 tablet Take 1 e every day every day tablet by oral by oral every day route in route in by oral the the route in morning. morning. the morning. Trulicity Trulicity No 1.5mg Q1W Trulicity [facility] 1.5 mg/0.5 1.5 mg/0.5 1.5 mg/0.5 Family [...] 0.6 Victoza 0.6 No 1.8mg Q1D Victoza [facility] mg/0.1 mL mg/0.1 mL 0.6 mg/0.1 [facility] (18 mg/3 (18 mg/3 mL (18 [...] Source Name Name influenza, influenza, 2018-06-06 Completed [facility] injectable, injectable, 00:00:00 Practice quadrivalent quadrivalent pneumococcal pneumococcal 2018-04-06 Completed [facility] suzan polysaccharide PPV23 polysaccharide PPV23 00:00:00 Practice tetanus toxoid, tetanus toxoid, 2014-06-06 Completed [facility] age Family unspecified unspecified 00:00:00 Practice formulation formulation Vital Signs Vital Name Observation Time Observation Value Comments Source BP Diastolic 2020-03-03 00:00:00 86 mm[Hg] [facility] Practice Height 2020-03-03 00:00:00 61 [in_i] [facility] BMI (Body Mass 2020-03-03 00:00:00 45.1 kg/m2 [facility] Index) Practice BP Systolic 2020-03-03 00:00:00 144 mm[Hg] [facility] Body Weight 2020-03-03 00:00:00 238.6 [lb_av] [facility] Procedures Procedure Date / Time Performed Performing Clinician Sour e Caesarean Section 2014-08-26 00:00:00 [place] [facility] Caesarean Section 2012-01-31 00:00:00 [place] [facility] [place] [facility] Caesarean Section 2011-02-28 00:00:00 [facility] Plan of Care Planned Activity Planned Date Details Comments Source Diagnostic Test 2020-03-03 glucose, fingerstick, [facility] danielle [facility] Pending 00:00:00 blood [code = Practice glucose, fingerstick, blood] Diagnostic Test 2020-03-03 hemoglobin A1C, [facility] Pending 00:00:00 fingerstick [code = Practice hemoglobin A1C, fingerstick] Diagnostic Test 2020-03-03 microalbumin/creatini [facility] Pending 00:00:00 ne, mass ratio, urine Practi ce [code = microalbumin/creatini ne, mass ratio, urine] Diagnostic Test 2020-03-03 lipid panel, serum [facility] Pending 00:00:00 [code = lipid panel, Practic e serum] Diagnostic Test 2020-03-03 CMP, serum or plasma [facility] Pending 00:00:00 [code = CMP, serum or Practi ce plasma] Diagnostic Test 2020-03-03 CBC w/ auto diff [facility] Pending 00:00:00 [code = CBC w/ auto Practice diff] Diagnostic Test 2020-03-03 TSH, serum or plasma [facility] Pending 00:00:00 [code = TSH, serum or Practi ce plasma] Diagnostic Test 2020-03-03 T4, free, serum [facility] = T4, free, serum] Practice Diagnostic Test 2020-03-03 diabetes panel, serum [facility] Pending 00:00:00 [code = diabetes Practice panel, serum] Diagnostic Test 2020-03-03 C-peptide, serum [facility] Pending 00:00:00 [code = C-peptide, Practice serum] Diagnostic Test 2020-03-03 cortisol, am, serum [facility] Pending 00:00:00 [code = cortisol, am, Rylan ross serum] Future Appointment 2020-06-02 Alcides Kauffman, [id number] [facility] 00:00:00 [facility]; Rylan ross [facility] [address], [place] [address] Encounters Start End Encounter Admission Attending Care Care Encounter Source Date/Time Date/Time Type Type Clinicians Facility Department ID 2020-03-03 2020-03-03 Alcides [facility] [id number] [facility] ill[facility] 00:00:00 00:00:00 Mil [facility] Family KauffmanBri - Rylan toney MD: [id number] [email or web address] dias Shadow [facility], [facility] [address], [place] [address] , Ph. Results This patient has no known results.
[2020-05-07] MEDS ORDERED: EPINEPHrine 4 MG in NA CHLORIDE 0.9% 250 ML IV PRN (09:16)
[2020-05-07 09:18] LABS: Absolute Lymphocytes (CBC) 3.5 K/uL (0.7-4.9); Basophils % 0.6 % (0-1.3); Hematocrit 34.9 % (36.0-45.0); MPV 11.2 fL (7.6-11.3); RBC Red Blood Cell Count 3.71 M/uL (3.86-4.86)
[2020-05-07 09:25] LABS: Protime INR 1.19
[2020-05-07 09:34] LABS: Arterial Blood Carboxyhemoglob 1.7 % (0-1.5); Blood Gas Oxyhemoglobin 58.3 % (94-97); Blood O2 Saturation 59.9 % (92-98.5)
[2020-05-07 09:47] LABS: ALT/SGPT 33 U/L (12-78); AST/SGOT 58 U/L (15-37); Albumin 2.5 g/dL (3.4-5.0); Alkaline Phosphatase 132 U/L (45-117); BUN Blood Urea Nitrogen 63 mg/dL (7-18); Bicarbonate 18 mmol/L (21-32); Bilirubin Direct 0.1 mg/dL (0-0.2); Bilirubin Total 0.5 mg/dL (0.2-1.0); Glucose Level 327 mg/dL (74-106); Magnesium 3.2 mg/dL (1.8-2.4); NT PRO-BNP 7917 pg/mL (<125); Protein, Total 6.5 g/dL (6.4-8.2); Sodium Level 134 mmol/L (136-145); Troponin (Emerg Dept Use Only) < 0.02 ng/mL (0.0-0.045)
--- NOTE | 2020-05-07 09:50 | RAD REPORT ---
EXAM DESCRIPTION: RAD - Chest Single View - 05/07/2020 9:32 am CLINICAL HISTORY: recent pneumonia/ET tube placement Chest pain. COMPARISON: Chest Pa And Lat (2 Views) dated 04/29/2020; Chest Single View dated 04/28/2020; Chest S jayla View dated 04/26/2020; Chest Pa And Lat (2 Views) dated 07/02/2019 FINDINGS: Portable technique limits examination quality. Endotracheal tube tip is in the right mainstem bronchus. Extensive bilateral pulmonary opacification is seen which may represent pneumonia, pulmonary edema or ARDS. Cardiac size not well evaluated.
[2020-05-07 09:54] LABS: Anisocytosis 1+; Blood Morphology Comment NOTED (NOT SEEN); Platelet Estimate ADEQ; Potassium 6.2 mmol/L (3.5-5.1)
[2020-05-07] MEDS ORDERED: PANTOPRAZOLE 40 MG INJ ONE (10:09)
[2020-05-07] MEDS ORDERED: CEFEPIME 1 GM/100 ML BAG IV ONE (10:09)
[2020-05-07] MEDS ORDERED: NA CHLORIDE 0.9% 250 ML ONE (10:13)
[2020-05-07] MEDS ORDERED: VANCOMYCIN 1 GM/VIAL ONE (10:13)
[2020-05-07 10:20] LABS: Arterial Blood Carboxyhemoglob 2.1 % (0-1.5); Blood Gas Oxyhemoglobin 73.8 % (94-97)
[2020-05-07] MEDS ORDERED: DOPAMINE/D5W 400 MG/250 ML BAG IV ONE ×4 (10:30→21:55)
[2020-05-07] MEDS ORDERED: NA CHLORIDE 0.9% 2,000 ML ONE (10:36)
[2020-05-07] MEDS ORDERED: NOREPINEPHRINE 4mg/D5W 250mL 4 MG/250 ML BAG IV ONE (11:14)
[2020-05-07] MEDS ORDERED: ALBUTEROL 2.5 MG/3 ML NEB SOL ONE (11:33)
[2020-05-07] MEDS ORDERED: CALCIUM GLUCONATE 1 GM IVPB 1 GM/50 ML BAG IV ONE (11:34)
[2020-05-07] MEDS ORDERED: D50W 50 ML IV ONE (11:34)
[2020-05-07] MEDS ORDERED: INSULIN -REGULAR HUMAN 50 UNIT/0.5 ML ML ONE ×2 (11:34→23:51)
[2020-05-07] MEDS ORDERED: WATER FOR INJ,STERILE 1,000 ML with NA BICARB 8.4% 150 MEQ IV SCH ×2 (11:45)
--- NOTE | 2020-05-07 11:53 | ER ---
Nurse's Notes [facility] Name: Danni Huber Age: 45 yrs Sex: Female : 1975 Arrival Date: 05/07/2020 Time: 08:33 Bed 4 Private MD: Diagnosis: Cardiopulmonary Arrest;Pneumonia, unspecified organism;Congestive Heart Failure;Hypothermia;Hyperkalemia;Hyperglycemia, unspecified Presentation: 05/07 08:26 Chief complaint: EMS states: CPR in progress. Coronavirus screen: At this time, unable to obtain information related to travel outside the [place] Ebola Screen: Unable to complete the Ebola screening because:. Onset of symptoms was May 07, 2020 at 08:00. Care prior to arrival: Assisted ventilation, CPR via thumper IO Left lower xtremity. Activity prior to arrival: last known normal 0330. 08:26 Method Of Arrival: EMS: [facility] 08:26 Acuity: ALEXIS 1 08:26 Compressions began prior to arrival. 08:30 Note pulse check Asystole. Note Blood sugar 324. Note Pulse check Asystole no pulse. 09:28 Care prior to arrival: Medication(s) given: epi at 0822. 09:29 Initial Sepsis Screen: Does the patient meet any 2 criteria? Systolic BP < 90 mmHg. kl Does the patient have a suspected source of infection? No. Patient's initial sepsis screen is negative. Risk Assessment: Do you want to hurt yourself or someone else?. 09:39 Note 0834 No Pulse asystole 0838 No Pulse Asystole 0840 No Pulse Asystole 0846 No Pulse kl Asystole 0850 Positive femoral pulse. Triage Assessment: 09:27 General: Appears obese, Behavior is unresponsive. Pain: Unable to use pain scale. kl Patient is intubated. 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 - Social history:: Smoking status: unknown. - History obtained from: EMS. Screenin: Nutritional screening: No deficits noted. Tuberculosis screening: unknown. Fall Risk kl None identified. : Abuse screen:. kl Assessment: : CPR assessment: unresponsive, no respiratory effort, intubated, Ambu ventilation, kl pulses present w/ compressions. Cardiac rhythm is asystole. :26 Reassessment: ETT moved back , now 23 AT teeth, per Abril, RT. iw 09:32 General: Appears obese, Behavior is unresponsive. pt is intubated. Neuro: Level of iw Consciousness is unresponsive, Oriented to none. Cardiovascular: Capillary refill is > 3 seconds is sluggish skin cool to touch . Respiratory: Ventilator assessment: ET Tube: 7.5 Ventilator Mode: Assist Control (AC) Tidal Volume: 610 Respiratory Rate: 16 FiO2: 100%. GI: Abdomen is obese. Musculoskeletal: Range of motion: intact in all extremities. 09:50 Reassessment: dark red gastric contents noted in NG tube and suction canister, iw notified, pt having large loose BM, no blood visible. 10:48 Reassessment: pt mina to 25 bpm, no palpable pulse, CPR initiated, Dr. Cabrera at bedside , ACLS initiated, pt was given two rounds of Epi, it was noted that ETT had become dislodged. 11:02 Reassessment: pt sinus mina on monitor, AK=357/76 ETT was replaced by Dr. Cabrera. iw 11:08 Reassessment: family at bedside. iw 11:34 Reassessment: pt remains intubated, pt does not respond to painful stimuli, ETT in iw place, SpO2=91, RD=412/51, HR =67, pt remains on epi drip at 10 mcg/min, dopamin drip at 15 mcg/kg/min, receiving fluid bolus , Dr. Conde at bedside, order for Bicarb drip placed in MAR, family updated on POC. 12:00 Reassessment: pt remains intubated, remains in critical but stable condition, no urine iw output. 12:24 Reassessment: pt weaned off epi drip, dopamine up to 20 mcg/kg/min, 3rd liter NS iw infusing, Bicarb drip infusing at 100 ml/hr, vanc and cefepime completed, XM=624/52, HR=54, 94% SpO2, pt receiving albuterol treatment for hyperkalemia , also receiving calcium gluconate IVP, Dr. marrero has rounded on pt, no new orders. 13:03 Reassessment: [facility] [employer] officer at bedside speaking with the pt family. em 14:31 Reassessment: pt remains intubated, pt on dopamine drip at 20 mcg/kg/min, RI=593/53, iw HR=55, 87% SPO2, no urine output, removed triple lumen central ine that was placed previously to right femoral artery, help manual pressure for 10 minutes, bleeding is controlled, pt awaiting ICU room assignment. Vital Signs: 08:50 BP 164 / 93; Pulse 88; Resp 16; Pulse Ox 94% on ETT ambu; Weight 99.79 kg (R); iw 09:22 BP 123 / 67; Pulse 44; iw 09:57 Temp 93.3(C); em 10:03 BP 77 / 44; Pulse 72; Resp 16; Pulse Ox 73% on ETT vent; iw 10:14 BP 76 / 42; Pulse 74; Resp 16 A; Temp 93.9(C); Pulse Ox 73% on ETT vent; iw 11:03 BP 169 / 87; Pulse 50; Resp 20 A; Temp 92.3(C); Pulse Ox 87% on ETT vent; iw 11:07 BP 135 / 53; Pulse 51; Resp 16 A; Pulse Ox 91% on ETT vent; iw 11:31 BP 105 / 51; Pulse 50; Resp 16 A; Pulse Ox 91% on ETT vent; iw 12:29 BP 109 / 54; Pulse 54; Resp 16 A; Temp 91.3(C); Pulse Ox 94% on ETT vent; iw 12:58 BP 107 / 50; Pulse 54; Resp 16 A; Pulse Ox 90% on ETT vent; iw 13:38 BP 111 / 54; Pulse 54; Resp 16 A; Temp 94.5(TE); Pulse Ox 89% on ETT vent; iw ED Course: 08:33 Patient arrived in ED. bd 08:40 Patient has correct armband on for positive identification. iw 09:06 Triage completed. kl 09:16 Tiffani Queen, RN is Primary Nurse. iw 09:18 Sandro Cabrera MD is Attending Physician. kdr 09:23 Assisted provider with central line placement. Set up central line tray. in right kl femoral. Was procedure site sterilized? Was the site allowed to dry? During the procedure, did the Practitioner(s) maintain a sterile field? Was blood aspirated from each lumen?. 09:25 Notified ED physician of a critical lab result(s). WBC 22.0. aa5 09:28 Arm band placed on. kl 09:30 Inserted saline lock: 20 gauge in right antecubital area, using aseptic technique. em1 Blood collected. 09:33 XRAY Chest (1 view) In Process Unspecified. EDMS 09:44 NGT: inserted 16 Fr. via right nare. verified placement of air over stomach, verified iw return of gastric contents, to intermittent suction. 09:45 Krueger cath inserted, using sterile technique, 18 Fr., by ED staff. iw 10:48 Jimenez Scanlon is Hospitalizing Provider. kdr 11:11 Raz Jauregui MD is Hospitalizing Provider. kdr 16:10 Chem 7 Sent. iw 16:10 Patient admitted, IV remains in place. iw Administered Medications: Discontinued: Epinephrine Drip - (EPINEPHrine (PF) 4 mg, Sodium Chloride 0.9% 250 ml) IV at calculated rate Per protocol; Start at 1 mcg/min; titrate upto 10 mcg/min to maintain SBP>90 mmHg 08:28 Drug: EPINEPHrine 0.1mg/mL 1:10,000 1 mg Route: IVP; Site: Other; kl 08:30 Follow up: Response: No adverse reaction iw 08:29 Drug: Sodium Bicarbonate 1 amp Route: IVP; Site: Other; kl 08:30 Follow up: Response: No adverse reaction iw 08:33 Drug: EPINEPHrine 0.1mg/mL 1:10,000 1 mg Route: IVP; Site: Other; kl 08:35 Follow up: Response: No adverse reaction iw 08:37 Drug: Sodium Bicarbonate 1 amp Route: IVP; Site: Other; kl 08:40 Follow up: Response: No adverse reaction iw 08:38 Drug: EPINEPHrine 0.1mg/mL 1:10,000 1 mg Route: IVP; Site: right femoral; kl 08:40 Follow up: Response: No adverse reaction iw 08:43 Drug: EPINEPHrine 0.1mg/mL 1:10,000 1 mg Route: IVP; Site: right femoral; kl 08:45 Follow up: Response: No adverse reaction iw 08:43 Drug: EPINEPHrine 0.1mg/mL 1:10,000 1 mg Route: IVP; Site: right femoral; kl 08:45 Follow up: Response: No adverse reaction iw 08:48 Drug: EPINEPHrine 0.1mg/mL 1:10,000 1 mg Route: IVP; Site: left femoral; kl 09:00 Follow up: Response: No adverse reaction iw 09:25 Drug: Sodium Bicarbonate 1 amp Route: IVP; Site: right femoral; iw 09:45 Follow up: Response: No adverse reaction iw 09:26 Drug: Sodium Bicarbonate 1 amp Route: IVP; Site: right femoral; iw 09:30 Follow up: Response: No adverse reaction iw 09:55 Drug: Epinephrine Drip - (EPINEPHrine (PF) 4 mg, Sodium Chloride 0.9% 250 ml) Route: em IV; Rate: calculated rate; Site: right femoral; 10:01 Drug: Cefepime 1 grams Route: IVPB; Rate: 200 ml/hr; Infused Over: 30 mins; Site: right iw femoral; 10:30 Follow up: IV Status: Completed infusion iw 10:02 Drug: NS 0.9% (30 ml/kg) 30 ml/kg {Note: administer 3 L.} Route: IV; Rate: bolus; Site: iw right femoral; 16:00 Follow up: IV Status: Completed infusion iw 10:05 Drug: vancoMYCIN 1 grams Route: IVPB; Infused Over: 2 hrs; Site: right femoral; iw 12:15 Follow up: IV Status: Completed infusion iw 10:08 Drug: ProTONIX 40 mg Route: IVP; Site: right antecubital; em 10:15 Follow up: Response: No adverse reaction em 10:25 Drug: Dopamine drip 4 mcg/kg/min - (DOPamine 400 mg, D5W 250 ml) Route: IV; Rate: iw calculated rate; Site: right forearm; 19:21 Follow up: IV Status: Infusion continued iw 11:31 Drug: D50W 25 ml Route: IVP; Site: right antecubital; iw 12:00 Follow up: Response: No adverse reaction iw 11:36 Drug: Insulin Regular Human 10 units {Co-Signature: em (Wayne Fabian RN).} Route: IVP; iw Site: right antecubital; 12:00 Follow up: Response: No adverse reaction iw 12:09 Drug: Calcium Gluconate 1 grams Route: IVPB; Infused Over: 60 mins; Site: right iw antecubital; 13:09 Follow up: IV Status: Completed infusion iw 12:10 Drug: Albuterol - atroVENT (3:1) (2.5 mg - 0.5 mg) 3 ml Route: Nebulizer; iw 13:00 Follow up: Response: No adverse reaction iw 12:30 Drug: Lasix 40 mg Route: IVP; Site: right femoral; iw 13:00 Follow up: Response: No adverse reaction iw Outcome: 08:50 Outcome Resuscitation successful kl 08:50 Condition: improved 11:05 Decision to Hospitalize by Provider. kdr 16:00 Admitted to ER Hold. Please see [facility] for further documentation. iw 19:30 Patient left the ED. ea Signatures: Dispatcher [employer] Ina Cortes Kimberly, RN Sandro Grewal MD MD kdr Munoz, Edgar, RN RN em Williams, Irene, RN RN iw Martinez, Eric em1 Iwona Castro RN RN aa5 Mohini Nuñez RN RN ea Edgar Munoz RN em Corrections: (The following items were deleted from the chart) 09:17 08:28 EPINEPHrine 0.1mg/mL 1:10,000 1 mg IVP in Other kl kl 09:18 08:38 EPINEPHrine 0.1mg/mL 1:10,000 1 mg IVP in Other kl kl 09:56 08:50 BP 164 / 93; Pulse 88bpm; Resp 16bpm; Pulse Ox 94% ET / Ambu; kl iw 10:02 10:01 NS 0.9% (30 ml/kg) 30 ml/kg IV at bolus in right femoral iw iw 11:07 10:48 Reassessment: pt mina to 25 bpm, no palpable pulse, CPR initiated, Dr. Cabrera iw at bedside iw
--- NOTE | 2020-05-07 11:53 | EDPHYS ---
Physician Documentation [facility] Name: Danni Huber Age: 45 yrs Sex: Female : 1975 Arrival Date: 05/07/2020 Time: 08:33 Bed 4 Private MD: ED Physician Sandro Cabrera HPI: 05/07 10:27 This 45 yrs old Female presents to ER via EMS with complaints of CPR. kdr 10:27 Preceding the arrest, the patient was found down by family. The arrest occurred at [facility]. Pre-hospital course: EMS care prior to arrival: initiation of ACLS, peripheral IV, intubation was successfully performed, oxygen, 100% by ET tube. EMS on scene time was 20 minutes were spent at scene. The patient was found down at \R\7:00 AM by family. She was on the floor. She had last been seen sitting up at 03:00 AM this morning. Unknown downtime prior to EMS arrival. At 3:00 AM had noted that her sat was 88% and he put her back on her oxygen and her sat improved to over 90%. HE states that she has to be on her oxygen to keep her saturations good/above 90%. Onset: The symptoms/episode began/occurred this morning. Severity of symptoms: At their worst the symptoms were incapacitating in the emergency department the symptoms are unchanged. The patient has not experienced similar symptoms in the past. The patient has been recently been admitted at [facility], was discharged last week, The patient was discharged last Tuesday and has not had any c/o or apparent worsening of her conditions since then. 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 - Social history:: Smoking status: unknown. - History obtained from: EMS. ROS: 10:27 Constitutional: Negative for fever, chills, and weight loss. kdr 10:27 Unable to obtain ROS due to patient is on ventilator. Exam: 10:27 Head/Face: Normocephalic, atraumatic. kdr 10:27 Constitutional: The patient appears well nourished, comatose, obese, in obvious distress. 10:27 Head/face: Exam is negative for acute changes, obvious evidence of injury or deformity. 10:27 Eyes: Periorbital structures: appear normal, Pupils: dilated, 4 mm and sluggish, Corneas: are normal, Lids and lashes: appear normal. 10:27 Chest/axilla: Inspection: Palpation: no acute changes. 10:27 Cardiovascular: Rate: bradycardic, Rhythm: regular, Pulses: weak, Heart sounds: normal, Edema: pedal edema, that is moderate. 10:27 ECG was reviewed by the Attending Physician. 10:27 Respiratory: Breath sounds: rales, bronchial sounds, that are moderate, are scattered, are heard diffusely. 10:27 Abdomen/GI: Inspection: obese Bowel sounds: active. Vital Signs: 08:50 BP 164 / 93; Pulse 88; Resp 16; Pulse Ox 94% on ETT ambu; Weight 99.79 kg (R); iw 09:22 BP 123 / 67; Pulse 44; iw 09:57 Temp 93.3(C); em 10:03 BP 77 / 44; Pulse 72; Resp 16; Pulse Ox 73% on ETT vent; iw 10:14 BP 76 / 42; Pulse 74; Resp 16 A; Temp 93.9(C); Pulse Ox 73% on ETT vent; iw 11:03 BP 169 / 87; Pulse 50; Resp 20 A; Temp 92.3(C); Pulse Ox 87% on ETT vent; iw 11:07 BP 135 / 53; Pulse 51; Resp 16 A; Pulse Ox 91% on ETT vent; iw 11:31 BP 105 / 51; Pulse 50; Resp 16 A; Pulse Ox 91% on ETT vent; iw 12:29 BP 109 / 54; Pulse 54; Resp 16 A; Temp 91.3(C); Pulse Ox 94% on ETT vent; iw 12:58 BP 107 / 50; Pulse 54; Resp 16 A; Pulse Ox 90% on ETT vent; iw 13:38 BP 111 / 54; Pulse 54; Resp 16 A; Temp 94.5(TE); Pulse Ox 89% on ETT vent; iw Procedures: 16:13 Intubation: Intubated orally using # 3 Marcie blade with 7.5 mm ETT. was successful kdr on first attempt. Ventilated with. Central Line: the site was prepped with Betadine, a triple lumen catheter was inserted, in the right femoral vein, in 1 attempts. placement was verified, by blood return, the site was dressed with Tegaderm, the patient tolerated the procedure, well, The initial line was placed in the femoral artery but left in place initially for ABGs. A second line was placed in the left femoral vein on initial stick with good blood return. MDM: 10:46 Data reviewed: vital signs, nurses notes, lab test result(s), radiologic studies. kdr Counseling: I had a detailed discussion with the patient and/or guardian regarding: the historical points, exam findings, and any diagnostic results supporting the discharge/admit diagnosis, lab results, radiology results, the need for further work-up and treatment in the hospital. ED course: The patient initially responded well to Epi but then HR/BP decreased and then started dopamine. 11:05 Patient medically screened. kdr 12 08:57 Order name: Basic Metabolic Panel; Complete Time: 11:05 aa5 05/07 08:57 Order name: CBC with Diff; Complete Time: 11:05 aa5 05/07 08:57 Order name: LFT's; Complete Time: 11:05 aa5 05/07 08:57 Order name: Magnesium; Complete Time: 11:05 aa5 12 08:57 Order name: NT PRO-BNP; Complete Time: 11:05 aa5 12 08:57 Order name: PT-INR; Complete Time: 11:05 aa5 12 08:57 Order name: Troponin (emerg Dept Use Only); Complete Time: 11:05 aa5 05/07 09:03 Order name: Lactate; Complete Time: 11:05 bd 05/07 09:03 Order name: Procalcitonin; Complete Time: 11:05 bd 05/07 09:03 Order name: Blood Culture Adult (2) bd 05/07 09:09 Order name: Flu; Complete Time: 11:05 aa5 05/07 09:34 Order name: ABG Arterial Blood Gas; Complete Time: 11:05 EDMS 05/07 09:54 Order name: Manual Differential; Complete Time: 11:05 EDMS 05/07 08:57 Order name: XRAY Chest (1 view); Complete Time: 11:05 aa5 05/07 10:18 Order name: ABG Arterial Blood Gas; Complete Time: 11:05 EDMS 05/07 10:29 Order name: COVID-19 aa5 05/07 10:34 Order name: SARS-COV-2 RT PCR; Complete Time: 11:05 EDMS 05/07 12:34 Order name: Lactate Sepsis 2 HR Follow-up; Complete Time: 19:06 EDMS 05/07 13:35 Order name: Basic Metabolic Panel EDMS 05/07 13:36 Order name: Basic Metabolic Panel EDMS 05/07 13:37 Order name: CBC with Automated Diff EDMS 05/07 13:37 Order name: CBC with Automated Diff EDMS 05/07 14:46 Order name: CT Head Brain wo Cont iw 05/07 15:37 Order name: CT; Complete Time: 19:06 EDMS 05/07 15:51 Order name: Chem 7 iw 05/07 16:40 Order name: Basic Metabolic Panel; Complete Time: 19:06 EDMS 05/07 19:05 Order name: CXR XRAY kdr 05/07 08:57 Order name: EKG; Complete Time: 08:58 aa5 05/07 08:57 Order name: Cardiac monitoring; Complete Time: 09:22 aa5 05/07 08:57 Order name: EKG - Nurse/Tech; Complete Time: 09:22 aa5 05/07 08:57 Order name: IV Saline Lock; Complete Time: 12:15 aa5 05/07 08:57 Order name: Labs collected and sent; Complete Time: 12:15 aa5 05/07 08:57 Order name: O2 Per Protocol; Complete Time: 12:15 aa5 05/07 08:57 Order name: O2 Sat Monitoring; Complete Time: 12:16 aa5 05/07 11:11 Order name: Misc. Order: Breezy Brand Per Protocol; Complete Time: 11:31 kdr 05/07 13:35 Order name: CONS Pharmacy Consult EDMS 05/07 13:35 Order name: CONS Pharmacy Consult EDMS 05/07 13:35 Order name: CONS Physician Consult EDMS EC:27 Rate is 99 beats/min. Rhythm is irregular, Sinus arrythmia with No ectopy. QRS Lapaz is kdr Normal. WI interval is normal. QRS interval is normal. QT interval is normal. Clinical impression: Sinus arrythmia. Administered Medications: Discontinued: Epinephrine Drip - (EPINEPHrine (PF) 4 mg, Sodium Chloride 0.9% 250 ml) IV at calculated rate Per protocol; Start at 1 mcg/min; titrate upto 10 mcg/min to maintain SBP>90 mmHg 08:28 Drug: EPINEPHrine 0.1mg/mL 1:10,000 1 mg Route: IVP; Site: Other; kl 08:30 Follow up: Response: No adverse reaction iw 08:29 Drug: Sodium Bicarbonate 1 amp Route: IVP; Site: Other; kl 08:30 Follow up: Response: No adverse reaction iw 08:33 Drug: EPINEPHrine 0.1mg/mL 1:10,000 1 mg Route: IVP; Site: Other; kl 08:35 Follow up: Response: No adverse reaction iw 08:37 Drug: Sodium Bicarbonate 1 amp Route: IVP; Site: Other; kl 08:40 Follow up: Response: No adverse reaction iw 08:38 Drug: EPINEPHrine 0.1mg/mL 1:10,000 1 mg Route: IVP; Site: right femoral; kl 08:40 Follow up: Response: No adverse reaction iw 08:43 Drug: EPINEPHrine 0.1mg/mL 1:10,000 1 mg Route: IVP; Site: right femoral; kl 08:45 Follow up: Response: No adverse reaction iw 08:43 Drug: EPINEPHrine 0.1mg/mL 1:10,000 1 mg Route: IVP; Site: right femoral; kl 08:45 Follow up: Response: No adverse reaction iw 08:48 Drug: EPINEPHrine 0.1mg/mL 1:10,000 1 mg Route: IVP; Site: left femoral; kl 09:00 Follow up: Response: No adverse reaction iw 09:25 Drug: Sodium Bicarbonate 1 amp Route: IVP; Site: right femoral; iw 09:45 Follow up: Response: No adverse reaction iw 09:26 Drug: Sodium Bicarbonate 1 amp Route: IVP; Site: right femoral; iw 09:30 Follow up: Response: No adverse reaction iw 09:55 Drug: Epinephrine Drip - (EPINEPHrine (PF) 4 mg, Sodium Chloride 0.9% 250 ml) Route: em IV; Rate: calculated rate; Site: right femoral; 10:01 Drug: Cefepime 1 grams Route: IVPB; Rate: 200 ml/hr; Infused Over: 30 mins; Site: right iw femoral; 10:30 Follow up: IV Status: Completed infusion iw 10:02 Drug: NS 0.9% (30 ml/kg) 30 ml/kg {Note: administer 3 L.} Route: IV; Rate: bolus; Site: iw right femoral; 16:00 Follow up: IV Status: Completed infusion iw 10:05 Drug: vancoMYCIN 1 grams Route: IVPB; Infused Over: 2 hrs; Site: right femoral; iw 12:15 Follow up: IV Status: Completed infusion iw 10:08 Drug: ProTONIX 40 mg Route: IVP; Site: right antecubital; em 10:15 Follow up: Response: No adverse reaction em 10:25 Drug: Dopamine drip 4 mcg/kg/min - (DOPamine 400 mg, D5W 250 ml) Route: IV; Rate: iw calculated rate; Site: right forearm; 19:21 Follow up: IV Status: Infusion continued iw 11:31 Drug: D50W 25 ml Route: IVP; Site: right antecubital; iw 12:00 Follow up: Response: No adverse reaction iw 11:36 Drug: Insulin Regular Human 10 units {Co-Signature: em (Wayne Fabian RN).} Route: IVP; iw Site: right antecubital; 12:00 Follow up: Response: No adverse reaction iw 12:09 Drug: Calcium Gluconate 1 grams Route: IVPB; Infused Over: 60 mins; Site: right iw antecubital; 13:09 Follow up: IV Status: Completed infusion iw 12:10 Drug: Albuterol - atroVENT (3:1) (2.5 mg - 0.5 mg) 3 ml Route: Nebulizer; iw 13:00 Follow up: Response: No adverse reaction iw 12:30 Drug: Lasix 40 mg Route: IVP; Site: right femoral; iw 13:00 Follow up: Response: No adverse reaction iw Disposition: 10:46 Critical Care:. kdr Disposition: 05/07/20 11:05 Hospitalization ordered by Raz Jauregui for Inpatient Admission. Preliminary diagnosis are Cardiopulmonary Arrest, Pneumonia, unspecified organism, Congestive Heart Failure, Hypothermia, Hyperkalemia, Hyperglycemia, unspecified. - Bed requested for Intensive Care Unit. - Status is Inpatient Admission. ea - Condition is Critical. - Problem is new. - Symptoms have improved. Critical care time excluding procedures: 10:46 Critical care time: Bedside Care: 60 minutes, Consultation: 10 minutes, Family kdr Intervention: 10 minutes. Total time: 80 minutes Signatures: Dispatcher [employer] EDAR Sarah Barrera RN Sandro Grewal MD MD kdr Munoz, Edgar RN Tiffani Oliveros RN Iwona Schneider RN Mohini Sanders RN RN ea Edgar Munoz RN em Corrections: (The following items were deleted from the chart) 09:31 08:59 CORONAVIRUS+MR.LAB.BRZ ordered. [facility] 11:11 11:05 Hospitalization Ordered by Jimenez Scanlon for Inpatient Admission. Preliminary kdr diagnosis is Cardiopulmonary Arrest. Bed requested for Intensive Care Unit. Status is Inpatient Admission. Condition is Critical. Problem is new. Symptoms have improved. kdr 11:12 11:11 05/07/2020 11:05 Hospitalization Ordered by Raz Jauregui MD for Inpatient kdr Admission. Preliminary diagnosis is Cardiopulmonary Arrest. Bed requested for Intensive Care Unit. Status is Inpatient Admission. Condition is Critical. Problem is new. Symptoms have improved. [facility] 13:51 13:37 NPO ordered. [facility] 19:30 11:12 05/07/2020 11:05 Hospitalization Ordered by Raz Jauregui MD for Inpatient ea Admission. Preliminary diagnosis is Cardiopulmonary Arrest; Pneumonia, unspecified organism; Congestive Heart Failure; Hypothermia; Hyperkalemia; Hyperglycemia, unspecified. Bed requested for Intensive Care Unit. Status is Inpatient Admission. Condition is Critical. Problem is new. Symptoms have improved. kdr
[2020-05-07] MEDS ORDERED: FUROSEMIDE 40 MG/4 ML VIAL ONE (12:55)
[2020-05-07] MEDS ORDERED: ACETAMINOPHEN 500 MG TAB PO PRN (13:24)
[2020-05-07] MEDS ORDERED: NOREPINEPHRINE 4 MG in D5W 250 ML IV PRN (13:24)
[2020-05-07] MEDS ORDERED: VANCOMYCIN/NS 1 gm 1 GM/250 ML BAG IVPB SCH (13:30)
--- NOTE | 2020-05-07 15:34 | RAD REPORT ---
EXAM DESCRIPTION: CT - Head Brain Wo Cont - 05/07/2020 3:15 pm CLINICAL HISTORY: CPR/unresponsive COMPARISON: <Comparisons> TECHNIQUE: Axial 5 mm thick images of the head were obtained without IV contrast. All CT scans are performed using dose optimization technique as appropriate and may include automated exposure control or mA/KV adjustment according to patient size. FINDINGS: No intracranial hemorrhage or shift of mid-line structures. There is loss of the bashir apolonia er- white matter differentiation throughout both cerebral hemispheres with sulcal effacement. Lateral ventricles are partially effaced. Third ventricle and fourth ventricle are both effaced. No hydrocep halus. Cerebellum assessment is inherently limited on CT imaging. The anoxic injury is suspected in t he cerebellum as well though this is less definitive. Mastoid air cells and visualized portions of the paranasal sinuses are clear. No acute bony findings. ET tube and NG tube in place partially visualized. 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 No intracranial hemorrhage. No midline shift.
[2020-05-07] MEDS: DOPAMINE/D5W 400 MG/250 ML BAG IV PRN ×2 (16:25→21:41)
[2020-05-07 16:39] LABS: Potassium 4.6 mmol/L (3.5-5.1)
[2020-05-07] MEDS ORDERED: NA CHLORIDE 0.9% 1,000 ML IV ONE (18:23)
[2020-05-07] MEDS ORDERED: EPINEPHrine 1 MG/10 ML SYR IV ONE (18:23)
--- NOTE | 2020-05-07 19:44 | RAD REPORT ---
EXAM DESCRIPTION: RAD - Chest Single View - 05/07/2020 7:26 pm CLINICAL HISTORY: Post ET tube adjustment COMPARISON: Respiratory distress TECHNIQUE: AP portable chest image was obtained 05/07/2020 7:26 pm . FINDINGS: Lung volumes are low. Endotracheal tube and ET tube are in place in good position. Resusci tation paddles overlie the lateral right chest and lower left chest. Cardiac silhouette is enlarged. Alveolar opacification is present in the lower right lung field with an overall increased interstitia l and alveolar opacification pattern to the right lung field. Increased interstitial pattern to the l eft lung field. No acute bony abnormality seen. No acute aortic findings suspected. IMPRESSION: ET tube and NG tube in good position. Bilateral airspace opacification right greater than left. This could be pneumonia, pulmonary edema, a spiration or failure.
[2020-05-07] MEDS ORDERED: CEFEPIME 1 GM/VIAL IV SCH (21:00)
[2020-05-07] MEDS ORDERED: GLUCAGON 1 MG/VIAL IM PRN (21:57)
[2020-05-07] MEDS ORDERED: D50W 25 GM/50 ML SYRINGE IV PRN (21:57)
[2020-05-07] MEDS ORDERED: INSULIN -REGULAR HUMAN 50 UNIT/0.5 ML ML SQ SCH (22:00)
[2020-05-07] MEDS: HEPARIN 5000 UNIT/ML 1 ML VIAL SQ SCH (22:19)
[2020-05-07] MEDS ORDERED: D5 0.45 NS 1,000 ML IV ONE (22:31)
[2020-05-07] MEDS ORDERED: HEPARIN 5000 UNIT/ML 1 ML VIAL ONE (22:31)
[2020-05-07] MEDS: INSULIN -REGULAR HUMAN 50 UNIT/0.5 ML ML SQ SCH (23:38)
[2020-05-08] MEDS: D5 0.45 NS 1,000 ML IV SCH ×4 (00:31→13:06)
[2020-05-08] MEDS: DOPAMINE/D5W 400 MG/250 ML BAG IV PRN ×2 (04:46→17:01)
[2020-05-08 04:55] LABS: Absolute Lymphocytes (CBC) 0.7 K/uL (0.7-4.9); Basophils % 0.6 % (0-1.3); Hematocrit 27.4 % (36.0-45.0); Lymphocytes % 3.8 % (15.3-44.8); RBC Red Blood Cell Count 3.17 M/uL (3.86-4.86)
[2020-05-08] MEDS ORDERED: DOPAMINE/D5W 400 MG/250 ML BAG IV ONE ×2 (04:58→17:15)
[2020-05-08 05:10] LABS: Potassium 4.8 mmol/L (3.5-5.1)
[2020-05-08] MEDS: INSULIN -REGULAR HUMAN 50 UNIT/0.5 ML ML SQ SCH ×3 (05:31→18:18)
[2020-05-08] MEDS ORDERED: INSULIN -REGULAR HUMAN 50 UNIT/0.5 ML ML ONE ×3 (05:45→18:30)
--- NOTE | 2020-05-08 06:10 | EKG ---
Test Date: 2020-05-07 Test Time: 09:01:43 Fondant Cooker: TERRY MEASUREMENT RESULTS: Intervals: Rate: 99 MI: QRSD: 108 QT: 422 QTc: 541 [place]: P: MI: QRS: -34 T: 126 INTERPRETIVE STATEMENTS: Undetermined rhythm Left axis deviation Low voltage QRS Cannot rule out Anterior infarct, age undetermined T wave abnormality, consider lateral ischemia Prolonged QT Abnormal ECG Compared to ECG 04/26/2020 11:23:38 Left-axis deviation now present Low QRS voltage now present Myocardial infarct finding now present T-wave abnormality now present Possible ischemia now present Sinus rhythm no longer present Ventricular premature complex(es) no longer present Electronically Signed On 05-08-20 06:07:28 BOOKKEEPING ASSISTANT by Dav Au
[2020-05-08] MEDS ORDERED: D50W 25 GM/50 ML SYRINGE IV PRN (07:03)
[2020-05-08] MEDS ORDERED: GLUCAGON 1 MG/VIAL IM PRN (07:03)
[2020-05-08] MEDS ORDERED: INSULIN GLARGINE 100 UNITS/ML SQ ONE ×2 (07:19→07:41)
[2020-05-08] MEDS: CEFEPIME/SWI 1gm 10 ML IV SCH (08:00)
--- NOTE | 2020-05-08 08:25 | HP ---
Date of Admission: 05/07/2020 Chief Complaint: Unresponsive. History Of Present Illness: This is a 45-year-old female patient, who was in her usual state of health since she was discharged from the hospital recently about a week ago or so. She was in the hospital from 04/27 to 04/29. During her last hospital admission, she was discharged to go home with home oxygen. She was advised to quit smoking, which unfortunately, she has continued to smoke in spite of recurrent instructions to quit smoking. As per my discussion with patient's and patient's father on Tuesday of this week so that is on 05/05/2020, EMS was called, because she was not feeling good and her family wanted her to come to emergency room, but after EMS arrived at her house, she was feeling better, so she decided not to come to the hospital at that time. On Tuesday, which is yesterday, she had uneventful day, in fact she was supposed to have a followup at my office after the last hospital stay and this followup appointment was supposed to be on May 07, 2020, which is today, but patient informed my office staff that she is concerned about her children and not sure if they have COVID-19 illness or not and she was planning to take them to get the test done, so with that in mind, we advised her instead of coming to office for her followup visit. We should try to do tele visit with her, but she did not report any complaints at that time. As per discussion with family, she had uneventful day yesterday also and she was up until around 3 o'clock or so with her and around that time, her went to the bedroom to sleep and she has stayed in a recliner or couch area as I understand. Around 7:30 or so in the morning, when woke up, at that time, he found her unresponsive next to the couch and she did not have her oxygen on at that time. EMS was called and patient was brought to emergency room and was provided aggressive measures in emergency room. We were able to obtain pulse and subsequently, she was started on vasopressor medications. Pulmonary, cardiology, and neurology consultation have been requested. By the time I saw her, her condition had stabilized as far as vital signs are concerned. She was hypothermic and when I saw her, she was on warming blanket. Patient remains unresponsive. Allergies: NO KNOWN ALLERGIES. Medications: Carvedilol 25 mg 2 times a day, Trulicity once a week as prescribed by her it support specialist, Dr. Kauffman, duloxetine 60 mg daily, furosemide 40 mg tablet she takes 2 tablets 2 times a day, gabapentin 300 mg takes 2 capsules 2 times a day, hydralazine 50 mg 2 times a day, Lantus 45 units subcutaneous injection daily, lisinopril 40 mg daily, amlodipine 5 mg 2 times a day, and Ferrocite 1 tablet 2 times a day. Review of Systems: Respiratory: As mentioned above. Cardiovascular: As mentioned above. All other systems unable to obtain as patient is currently unresponsive. Past Medical History: Significant for diabetes mellitus with neuropathy, hypertension, diastolic congestive heart failure, hyperlipidemia, chronic kidney disease, iron deficiency anemia. Past Surgical History: . Family History: Father has hypertension, diabetes, hyperlipidemia. Mother , had lung cancer, COPD, coronary artery disease, diabetes, and hypertension. Social History: Positive for smoking. Use of alcohol, negative. Physical Examination: Last Vital Signs: Temperature 94.4, pulse 60, respiratory rate 16, blood pressure 145/62, oxygen saturation 88%. Height 5 feet, weight 240 pounds. General: Patient is lying in bed, intubated on ventilator, unresponsive to any verbal or painful stimuli. Extremities: Grade 1 pedal edema. No calf tenderness. Neurological: Patient remains unresponsive to any verbal stimulation or painful stimuli. HEENT: Head atraumatic, normocephalic. Conjunctivae nonerythematous. Sclerae white. Mouth, no thrush or edema noted. Ears/Nose, no mass, lesion, discharge noted. Neck: Supple. No JVD, lymph nodes, bruit, thyromegaly noted. Lungs: Bilateral good equal air entry. Clear to auscultation. No rhonchi. No rales. Heart: Normal heart sounds, no murmur or gallop. Abdomen: Soft, bowel sounds normal. No guarding, rigidity, tenderness, mass, hepatosplenomegaly, distention, or bruit noted. Skin: No rash, ulcer, cellulitis. Lymphatics: No lymph node enlargement in neck, supraclavicular, infraclavicular region. Chest: Unremarkable. External Genitalia: Deferred. Rectal: Deferred. Laboratory Data: White count 22, hemoglobin 10.1, platelets 242, blood gas pH 6.94, pCO2 78.4, PO2 47.5, oxygen saturation 59.9% on 100% FiO2. Sodium 134, potassium 6.2, chloride 100, bicarb 18, BUN 63, creatinine 4.96, glucose 327. COVID-19 test negative. AST 58, ALT 33, alkaline phosphatase 132, total bilirubin 0.5. BNP 7917. Procalcitonin 0.26. Lactic acid 8.6. Imaging: Chest x-ray shows ET tube and NG tube in place and bilateral airspace opacities. CAT scan of the head shows diffuse anoxic brain injury. Impression: 1. Cardiac arrest. 2. Acute respiratory failure with hypoxia and hypercapnia. 3. Acute renal failure. 4. Hyperkalemia. 5. Rule out pneumonia. 6. Acute respiratory distress syndrome. 7. Chronic diastolic congestive heart failure. 8. Hypertension. 9. Type 2 diabetes mellitus, uncontrolled, with diabetic neuropathy. 10. Hyperlipidemia. 11. Iron-deficiency anemia. Plan: Admit patient to hospital for further evaluation and management of this problem. Patient is appropriate for inpatient and is expected to spend 2 midnights in hospital. Since her arrival to the emergency room, she has received vasopressor medication which we will continue it and we were able to withdraw some of the vasopressor medication as her blood pressure has stabilized. She has received treatment for hyperkalemia in form of albuterol nebulizer treatment, D50 with insulin intravenous injection, calcium gluconate, and she is on bicarb drip. Nephrology consultation from Dr. Conde was also requested. Patient has received empiric antibiotics, cefepime, and vancomycin. We will continue that. Consult Pharmacy for management of vancomycin therapy. Ventilator management to be provided per Dr. Kendrick. We will start her on DVT prophylaxis using heparin 5000 units subcutaneous injection every 12 hours and diabetes will be managed with sliding scale insulin. Her overall prognosis is very poor and all the details were discussed with the patient's family member, who is patient's as well as patient's father outside the emergency room today. We will see her tomorrow for followup. ALBERTA/MODL Voice ID: [id number] THERESA
[2020-05-08] MEDS ORDERED: HEPARIN 5000 UNIT/ML 1 ML VIAL ONE ×2 (08:44→20:21)
[2020-05-08] MEDS ORDERED: VANCOMYCIN 1.75 GM in NA CHLORIDE 0.9% 500 ML IVPB SCH ×2 (09:00→15:00)
--- NOTE | 2020-05-08 09:16 | CON ---
Date of Consultation: 05/07/2020 Reason For Consultation: Admitted with a cardiac arrest to Dr. Jauregui's service on 05/07/2020. History Of Present Illness: Ms. Huber is a 45-year-old woman with history of obesity, possible Pi ckwickian syndrome, diabetes, hypertension, renal disease, neuropathy, has had breast reduction, C-se ction and tubal ligation in the past. Has had chronic diastolic congestive heart failure. Came in w ith a cardiac arrest. Received about 20 minutes of CPR before she made there in another 20 minutes o r so in the emergency room. The code was actually ready to be called when she developed a pulse. Sh arun was obviously intubated. No history was able to be obtained as to what happened prior to her arres t. Allergies: NONE. Family History: Unobtainable. Past Medical History: As stated earlier. Medications: At home supposed to be carvedilol, Farxiga, gabapentin, lisinopril and torsemide. Physical Examination: General: She was in sinus rhythm, intubated. Normal blood pressure. Afebrile. She was in sinus br joie. Her glucose was 374. Mechanical ventilation. HEENT: Negative. Neck: Supple with no bruit. Chest: Revealed rales at both bases. Cardiac: Exam revealed bradycardia. No murmurs, gallops, or rubs. Abdomen: Obese, but benign. Extremities: Revealed 1+ edema. Diagnostic Data: Creatinine was 4.44. White count was 22,000, hemoglobin was 10.1. Her blood gases were PO2 was 54, pCO2 was 71, pH of 7.07. Her troponin was negative. BNP was 7917. EKG showed wha t looked like a junctional rhythm with possible anterior infarction that is old and possible lateral ischemia. Chest x-ray showed pneumonia versus ARDS. Head CT showed diffuse anoxic brain injury thro ughout both cerebral hemispheres and the cerebellum. No hemorrhage. Impression And Plan: This is a patient who is status post cardiac arrest. Etiology is unknown. Cou ld be secondary to hypoxia and arrhythmia or coronary artery disease with Pickwickian syndrome. The patient neurologically is not doing well. CT of the head was not very encouraging. She remained in sinus rhythm now with good vital signs, but remains hypoxic. I think she has a very poor prognosis. I do not have any recommendation at this point from a cardiac standpoint. If we see any arrhythmias , we will consider treating that. Echocardiogram in the morning should be considered. The case has been discussed with the family. She has an elevated white count, poorly controlled diabetes, possibl e pneumonia versus ARDS. She has dyslipidemia and hypertension, both of those are controlled. She h as been treated for her other issues appropriately by Dr. Jauregui. I will continue to follow her along. FATEMEH/LANEY Voice ID: [id number] Report ID: [id number]
[2020-05-08] MEDS: HEPARIN 5000 UNIT/ML 1 ML VIAL SQ SCH ×2 (10:05→20:08)
[2020-05-08] MEDS ORDERED: FUROSEMIDE 100 MG in NA CHLORIDE 0.9% 90 ML IV SCH (11:00)
[2020-05-08] MEDS: FUROSEMIDE 100 MG in NA CHLORIDE 0.9% 90 ML IV SCH ×2 (11:00→20:09)
--- NOTE | 2020-05-08 11:09 | RAD REPORT ---
EXAM DESCRIPTION: US - Renal Ultrasound-Complete - 05/08/2020 10:53 am CLINICAL HISTORY: ELKIN COMPARISON: No comparisons FINDINGS: The right kidney measures 11.8 x 5.9 x 5.6 cm. The left kidney measures 10.5 x 6.3 x 5.9 cm. Renal cortical thickness and echogenicity are normal. No hydronephrosis or suspicious renal mass. A 2 centimeter cyst is present in the lateral left kidney. Bladder is contracted around a Krueger catheter precluding accurate assessment. IMPRESSION: No hydronephrosis or suspicious renal mass. No other significant findings.
--- NOTE | 2020-05-08 11:31 | CON ---
Date of Consultation: 05/07/2020 Additional Consulting Physician: Dr. Jauregui/Hospitalist, ER. Reason For Consultation: Acidosis, hyperkalemia, acute kidney injury. History Of Present Illness: All the information has been obtained from the record and from family by bedside. 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 The patient recently admitted to the hospital for COVID pneumonia at that time, discharged on the 24t h of April. The patient found down by EMS of unknown timing. Up on arrival, by EMS resuscitation has been started. Upon arrival to the ER, the patient was in shock. The patient was started on dop amine and norepinephrine. Then, the patient's primary lab showed elevation in BUN and creatinine wit h acidosis. Potassium was elevated to 6.2 with bicarb of 18 and hyperglycemia for that reason, we mcdowell ve been consulted. We started the patient on bicarb drip. The patient was treated with a cocktail f or the hyperkalemia. The patient was placed on pressor and start empiric antibiotic. According to t he record as outpatient, the patient was on Lasix, gabapentin, and lisinopril. No other insulting medication. Allergies: NO KNOWN DRUGS ALLERGY. Past Medical History: 1.Diabetes complicated with neuropathy and nephropathy. 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 3.Coronary artery disease with congestive heart failure. 4.Hyperlipidemia. Past Surgical History: Include . Family History: Positive for diabetes, hypertension, end-stage renal disease, and coronary artery di sease. Social History: Active smoker, alcohol, denies drug abuse. Review of Systems: None obtainable. Physical Examination: Vital Signs: When I saw the patient on vent, on dopamine and norepinephrine. Blood pressure of 105/ 60, pulse of 88. No urine output. Chest: Clear to auscultation. Heart: S1 and S2. Systolic murmur. Abdomen: Soft and nontender. Extremities: Trace edema. Neuro: Pupil dilated, not reacted. No gag reflex. Laboratory Data: WBC 22, H and H 10.1/34.9, platelets 242. ABG; pH 6.94, CO2 78, O2 47, base access -14. Sodium 134, potassium 6.2, bicarb 18, chloride 100, BUN 63, creatinine 4.9, GFR of 9, blood lamas gar 427, calcium 8.1, magnesium 3.2, albumin 2.5. BNP 7900. Chest x-ray, cardiomegaly, mild congest ion. Assessment/plan: 1.Acute kidney injury secondary to poor perfusion, acute tubular necrosis, on advanced chronic kidne y disease, hyperkalemia and acidosis. I am going to start the patient on bicarb drip. We will send for renal ultrasound. Repeat protein and creatinine. We will follow up the patient. Depending on t he Neurology improvement and stabilization of the blood pressure, we will decide if the patient going to need renal replacement therapy or not. 2.Acidosis. High anion gap metabolic acidosis, multifactorial secondary to lactic acidosis to rule out diabetic ketoacidosis, superimposed with hypercapnic respiratory acidosis secondary to hypoventil ation. We going to continue vent support. Follow up with Critical Care. I am going to start the pa tient on bicarb drip and we will follow up the patient. Start bicarb drip on 3 amp of bicarb with fr ee water at rate of 100. We will repeat the lab in 4 hours. 3.Hyperkalemia secondary to renal failure superimposed with TRINH inhibitor. Discontinue all blood pr essure medications especially TRINH inhibitor. The patient received the cocktail. The patient receive d Lasix. We will start bicarb drip and we will follow up. 4.Diabetes with possible diabetic ketoacidosis. As by primary. 5.Leukocytosis, questionable healthcare-associated pneumonia and septic shock. We will start on ant ibiotic as by primary. We will follow up. 6.Anoxic encephalopathy. Continue supportive measures. We will follow up with the primary. 7.Congestive heart failure, slightly on the wet side currently. The patient already vented. We gabrielle l continue resuscitation and stabilize the blood pressure. We will follow up with Cardiology. Thank you Dr. Jauregui for allowing us to participate in the care of your patient. Time spent discussing the case with the family, examining the patient [id number], discussing the ca se with the ER physician, replacing order and informing the family about the patient condition, 65 mi shaila. WILEY/LANEY Voice ID: [id number] Report ID: [id number]
--- NOTE | 2020-05-08 11:46 | PN ---
Date of Progress Note: 05/08/2020 Subjective: The patient was admitted with shock with anoxic brain injury, has severe acidosis. Yest erday started on bicarb drip. Blood pressure started to stabilize. Currently on dopamine 5. The tri goldman is requiring high FiO2 of 100%. Objective: Vital Signs: Blood pressure 119/58, pulse of 48. Chest: Crackles bilateral. Heart: S1 and S2. Systolic murmur. Abdomen: Soft. Nontender. Extremities: +1 edema. Neuro: Pupil dilated, not reactive. The patient no movement on the extremity. No gag reflex. Laboratory Data: WBC 18, H and H 8.7/27.4, platelet 180. Sodium 136, potassium 4.3, bicarb 25, BUN 72, creatinine 4.8, calcium 7.4. The patient had only urine output of 25. Current Medications: The patient on include cefepime, vancomycin, dopamine, Tylenol, D5 half. Assessment/plan: 1.Acute kidney injury on advanced chronic kidney disease secondary to cardiorenal/poor perfusion, ac sokaogon tubular necrosis secondary to the shock anuric. Currently, no hyperkalemia or acidosis. I had l tung discussion with the patient giving the brain injury. I do not see the need to initiate renal rep lacement therapy right now. We will follow up the results of the EEG. If the EEG is showing possibl e of any recover sign at that time, we will discuss about renal replacement therapy. The patient aron jung and , father and sister understand the situation and the poor prognosis. Agreed on that p donte. So, we will follow up after EEG. 2.Hypertension. Currently hypotension. Keep holding all blood pressure medication. Continue dopam ine. I am going to start the patient on low dose of Lasix drip to establish better volume control an d if the patient is going to be cleared with brain injury at that time, we will hold it. 3.Hyperkalemia, resolved. 4.Acidosis, multifactorial secondary to hypercapnic respiratory failure, lactic acidosis, resolved. Keep holding bicarb drip. 5.Congestive heart failure. I am going to decrease IV fluid to 50. We will start the patient on La six drip and we will follow up with the patient. 6.Diabetes. As by primary. 7.Encephalopathy, hypoxemic. As above. 8.Healthcare-associated pneumonia. Continue current antibiotic. 9.Septic shock. Continue current antibiotic. Continue supportive care. Case discussed with family outside the room, verbalized understanding. Discussed with the staff, charles oconnell on the plan. Time spent coordinating care, placing order, discussing with family and staff over philatelic consultant, 35 min utes. KELTON Voice ID: [id number] Report ID: [id number]
--- NOTE | 2020-05-08 12:17 | P.CNS ---
Date of Consult: 05/08/20 Reason for Consult: Cardiopulmonary arrest Chief Complaint: Cardiopulmonary air at History of Present Illness: Patient is 45 years of age well known to me with a history of morbid obesity, metabolic syndrome pulmonary fibrosis was just recently discharged as found unresponsive by the relative EMS was able to revive her with the CPR currently patient is in coma unresponsive no spontaneous moment pupils fixed dilated no spontaneous respirations absent plantar reflexes Allergies No Known Drug Allergies Allergy (Verified 04/26/20 16:49) Unknown Home Medications: Gabapentin 2 cap PO DAILY WITH BREAKFAST 12/01/18 Lisinopril [Zestril] 40 mg PO DAILY 12/01/18 carvediloL [Coreg*] 25 mg PO BID #60 tab 03/05/19 Gabapentin [Neurontin*] 900 mg PO DAILY AT SUPPER 07/02/19 Amlodipine [Norvasc] 5 mg PO BID 04/26/20 Duloxetine HCl [Cymbalta] 60 mg PO DAILY 04/26/20 Empagliflozin [Jardiance] 25 mg PO DAILY 04/26/20 Furosemide 80 mg PO BID 04/26/20 Amoxicillin/Potassium Clav [Amox-Clav 500-125 mg Tablet] 1 tab PO BID 05/07/20 Ferrous Sulfate [Feosol] 325 mg PO BID 05/07/20 Hydralazine HCl 50 mg PO TID 05/07/20 Insulin Glargine,Hum.rec.anlog [Lantus Solostar] 48 units SQ DAILY 05/07/20 - Past Medical/Surgical History Diabetic: Yes -: DM -: HTN -: Renal dse, stage 3 -: anemia -: CHF -: neuropathy -: C section x3 -: breast reduction -: tubal ligation - Family History Father Medical History: Heart disease, Hypertension, Diabetes Notes: CHF Mother Medical History: Heart disease, Diabetes, Cancer Notes: CHF - Social History Smoking Status: Unknown if ever smoked Alcohol use: No CD- Drugs: No Caffeine use: Yes Place of Residence: Home Review of Systems is unable to be obtained Physical Examination Temp Pulse Resp BP Pulse Ox 97.1 F 46 L 16 124/58 L 96 05/08/20 08:00 05/08/20 10:15 05/08/20 10:15 05/08/20 10:15 05/08/20 10:15 General: Comatose Respiratory: Clear to auscultation bilaterally Cardiovascular: No edema, Normal S1 S2 Neurological: Other (Pupils fixed and dilated absent plantar responses) - Problems (1) Acute anoxic encephalopathy Current Visit: Yes Status: Acute Plan: Patient is 45 years of age multiple medical problems significant comorbid he has admitted with a cardiopulmonary arrest labs reviewed she has hypoxic hypercapnic renal function is significantly worse as been over 24 hr she has had a cardiac arrest at prognosis is very poor on likely to survive discuss with family members the sister present at the bedside discussed with them regarding withdrawal of care in the awaiting for the EEG neurology consultations patient's overall prognosis is very poor she has multiple comorbid problems including obesity renal function is significantly worse labs reviewed patient is on broad- spectrum antibiotic patient has bilateral interstitial changes which are all chronic CT head evidence of diffuse anoxic injury renal ultrasound does not show any obstruction
[2020-05-08] MEDS ORDERED: D5 0.45 NS 1,000 ML IV ONE (13:17)
--- NOTE | 2020-05-08 21:07 | PN ---
Date of Progress Note: 05/08/2020 Subjective: The patient was seen this morning for followup. She was lying in bed on ventilator. No improvement in her condition overnight. The patient is totally dependent on ventilator and she is n ot breathing over the ventilator setting. She had very minimal amount of urine output approximately 75 cc until this morning. As per my discussion with nursing staff, the patient does not have any gag reflex, does not respond to any deep suctioning, no response to any painful stimuli. Objective: Vital Signs: Reviewed. HEENT: Significant for pupils fixed and dilated, approximately 5-6 mm in size, bilateral equal, and no reaction to light. Lungs: Bilateral good equal air entry. Clear to auscultation. Heart: Sounds normal. Abdomen: Soft. Bowel sounds present. Extremities: Edema present of all the 4 extremities. Laboratory Data: Reviewed. Impression: 1.Anoxic brain damage. 2.Acute respiratory failure. 3.Cardiac arrest. 4.Diabetes mellitus. 5.Acute renal failure. 6.Rule out pneumonia. 7.Hypertension. Plan: We will go ahead and continue current medications, antibiotics, ventilator support. Continue to follow with Dr. Kendrick and sales and distribution clerk, Dr. Au. The patient does not have any gag reflex and the pupils are fixed, dilated. EEG was done today and I did discuss with the patient's sister an d this morning when I saw her and explained them about poor prognosis and plan was to wait fo r EEG result and then family will make further decision regarding her care. During the course of day today, the patient's did express desire to have do not resuscitate order in place and order was given to the nursing staff after it was confirmed with the patient's and Dr. Dutta was n ice enough to help us in a group about this discussion and decision regarding do not resuscitate with the patient's today. I also explained all the details to Dr. Keller and he reviewed the musa sun's EEG that was done and examined the patient and informed me that the patient's EEG does not s how any activity at all and the patient does not have any corneal reflex, gag reflex, and he has disc ussed all these details with family member and family member has informed him that they will make dec ision regarding withdrawal of life support tomorrow morning. I will see her in the morning. ALBERTA/MODL Voice ID: [id number] Report ID: [id number]
[2020-05-09] MEDS: INSULIN -REGULAR HUMAN 50 UNIT/0.5 ML ML SQ SCH ×4 (00:42→18:00)
[2020-05-09] MEDS ORDERED: INSULIN -REGULAR HUMAN 50 UNIT/0.5 ML ML ONE (00:55)
[2020-05-09] MEDS: DOPAMINE/D5W 400 MG/250 ML BAG IV PRN (04:16)
[2020-05-09] MEDS ORDERED: DOPAMINE/D5W 400 MG/250 ML BAG IV ONE ×2 (04:27→17:52)
[2020-05-09 05:17] VITALS: BMI 55.2
[2020-05-09 05:55] LABS: ALT/SGPT 22 U/L (12-78); AST/SGOT 50 U/L (15-37); Albumin 1.6 g/dL (3.4-5.0); Alkaline Phosphatase 87 U/L (45-117); BUN Blood Urea Nitrogen 78 mg/dL (7-18); Bicarbonate 24 mmol/L (21-32); Bilirubin Direct < 0.1 mg/dL (0-0.2); Bilirubin Total 0.5 mg/dL (0.2-1.0); Glucose Level 198 mg/dL (74-106); Magnesium 2.1 mg/dL (1.8-2.4); Phosphorus 7.5 mg/dL (2.5-4.9); Potassium 4.9 mmol/L (3.5-5.1); Sodium Level 135 mmol/L (136-145)
[2020-05-09] MEDS: FUROSEMIDE 100 MG in NA CHLORIDE 0.9% 90 ML IV SCH ×2 (07:00→15:37)
--- NOTE | 2020-05-09 07:48 | EEG ---
CHART: [id number] TEST ID#: [id number] DATE OF STUDY: 05/08/2020 THE EEG WAS RECORDED PORTABLE IN THE ER/ICU ON A 17 CHANNEL MACHINE. ELECTRODES WERE APPLIED IN THE USUAL MANNER USING THE INTERNATIONAL 10-20 SYSTEM. THERE IS NO ELECTROCEREBRAL ACTIVITY OF CEREBRAL ORIGIN. ELECTROCARDIOGRAM AND BLOOD PRESSURE MONITOR ARTIFACT IS IDENTIFIED. NO REACTION OR ELECTROENCEPAHLGRAM TO STERNAL RUB AND OTHER NOXIUS STIMULUS. IMPRESSION: THIS IS A SEVERELY ABNORMAL EEG DUE TO THE ABSENCE OF ANY ELECTROCEREBRAL ACTIVITY OF CEREBRAL ORIGIN. GIVEN THE ABSENCE OF HYPOTHERMIA AND DEEP SEDATING MEDICATIONS THIS POST- RESUSCITATIVE ELECTROENCAPHALOGRAM IS CONSISTENT WITH ELECTOCEREBRAL SILENCE OR BRAIN .
[2020-05-09] MEDS: HEPARIN 5000 UNIT/ML 1 ML VIAL SQ SCH (07:56)
[2020-05-09] MEDS: D5 0.45 NS 1,000 ML IV SCH (08:55)
[2020-05-09] MEDS: CEFEPIME/SWI 1gm 10 ML IV SCH (09:06)
[2020-05-09] MEDS ORDERED: D5 0.45 NS 1,000 ML IV ONE (09:06)
--- NOTE | 2020-05-09 12:52 | P.PN ---
Subjective Date of Service: 05/09/20 Chief Complaint: Cardiopulmonary air at Subjective A 45 Y/o woman, S/P cardiac arrest , developed acute kidney injury today Cr trending up Family agreed for withdrawal of care and comfort care will sign off call us prn ELKIN possibly due to ischemic ATN not candidate fopr HD Family agreed for comfort care S/P cardiac arrest intubated plan for withdrawal of care Septic shock Anoxic brain damage Family agreed for withdrawal of care and comfort care HTN Acidosis hold bicrb total time spent 25min will sign off call us prn Review of Systems is unable to be obtained Physical Examination - Vital Signs Temperature: 96.8 F Blood Pressure: 111/54 Pulse: 52 Respirations: 15 Pulse Ox (%): 93 - Physical Exam General: Unresponsive HEENT: Atraumatic, EOMI Neck: Supple, 2+ carotid pulse no bruit, Without JVD or thyroid abnormality Respiratory: Diminished Cardiovascular: Regular rate/rhythm, Normal S1 S2, Edema Gastrointestinal: Normal bowel sounds, Soft and benign, Non-distended Musculoskeletal: No clubbing, Swelling Integumentary: No rashes Assessment And Plan - Code Status/Comfort Care Comfort Measures: Hospice Care
[2020-05-09] MEDS ORDERED: VANCOMYCIN 1.75 GM in NA CHLORIDE 0.9% 500 ML IVPB SCH (13:00)
--- NOTE | 2020-05-09 13:46 | CON ---
Reason For Consultation: Dr. Keller called on consultation because the patient is unresponsive after cardiopulmonary resuscitation. History Of Present Illness: Ms. Huber is a 45-year-old patient with diabetes, noninsulin dependent diabetes mellitus, hypertension, chronic renal disease, and issue of hypoxia, who was recently hospitalized the end of April and went home but was found unresponsive by her family on May 07. It is unclear how long she was unresponsive. Emergency medical services were contacted. There was initiation of the ACLS protocol. Peripheral IV was achieved. Oxygenation was done. Apparently, she was resuscitated about 20 minutes on the scene after she was found down. Her pH at [facility] at 9:15 in the morning on May 12 was 6.94 and pCO2 78.4 with a pO2 of 47.5. At the time of the resuscitation, the patient reportedly had a very sluggish pupils, but was not responsive to noxious stimulation and once intubated, was not breathing over the ventilator. Her head CT scan done at 3:15 p.m. on the showed diffuse anoxic brain injury with both hemispheres and the cerebellum being involved. There was effacement of the sulci, bashir-white matter differentiation impaired bilaterally. The third and fourth ventricles were effaced and as noted, a toxic anoxic injury was noted throughout the brain. Prior to my evaluation, the patient there was an EEG done. It was done at 7 microvolts per mm. The patient was not febrile and had normal temperature. The study showed no electrical activity of cerebral origin. The patient had sternal rub and noxious stimulation applied. There was no change in the lack of any electrocerebral activity with those stimulation attempts. Past Medical History: As indicated. Allergies: NO KNOWN DRUG ALLERGIES. Medications: At home; carvedilol 6.25 mg twice daily, Duloxetine 30 mg daily, Farxiga 10 mg daily, gabapentin daily, lisinopril 40 mg daily, torsemide 10 mg twice daily. Past Surgical History: Breast reduction, , tubal ligation. Social History: Reportedly the patient smokes, not clear if there was alcohol consumption and no IV drug use. Family History: Noncontributory. Review of Systems: Not possible. The patient is completely unresponsive to any stimulation and has no spontaneous movement of face, arm, leg, or eye. Physical Examination: Vital Signs: Blood pressure 111/54, pulse 52, respiratory rate 14, temperature 96.9, oxygen saturation 95%. The patient is intubated. FiO2 100. Neurologic: Shows no spontaneous movement of face, arm, or leg or eyes. She has pupils around 4-5 mm, fixed, unresponsive to light stimulation. She has no corneal reflexes. She has no doll's eye reflexes. She does not breathe over the ventilator and deep suction elicits no gag response. She does not respond to supraorbital pressure. No response to uncal pressure in the feet and hands bilaterally. She is currently not on any sedation. Medications that have received dopamine, cefepime, vancomycin, and furosemide. Her tone is normal in the upper and lower extremities. Unable to assess coordination, strength, sensation, or gait. Laboratory Studies: Currently pH is 7.07, pCO2 71.1, pO2 of 54.8. Chemistries; sodium 135, potassium 4.9, chloride 101, carbon dioxide 24, BUN 78, creatinine 5.51, glucose ranged from 181-210. PTH is 635.5. Her vancomycin trough is 10.5. Chest x-ray shows bilateral airspace opacifications, right greater than left, could be pneumonia or pulmonary edema, aspiration or failure. Assessment: Ms. Huber is a 45-year-old patient with electrocerebral silence on EEG. Her neurological examination shows no brainstem reflexes. She does not breathe over the ventilator. Her head CT scan shows loss of all bashir-white distinction and the patient had a prolonged resuscitation. All of these factors demonstrate brain . This was discussed with the patient's family and they were opting to explore organ donation. This was discussed with the physician in- charge as well. WOJCEICH Voice ID: [id number] Report ID: [id number] THERESA
--- NOTE | 2020-05-09 15:01 | P.CNS ---
Date of Consult: 05/08/20 This is an addendum to my history and physical note on patient Danni Huber. The patient was seen on May 08, 2020 at 7:30 PM in the emergency room at [facility]. My note was dictated on May 09, 2020. As reported in my note, my neurological examination determined the patient to be brain with time of being 7:30 PM on May 08, 2020.
[2020-05-09 18:41] LABS: Arterial Blood Carboxyhemoglob 1.9 % (0-1.5); Blood Gas Oxyhemoglobin 86.3 % (94-97); Blood O2 Saturation 88.8 % (92-98.5)
[2020-05-09 20:40] VITALS: O2SAT 92
[2020-05-09 20:42] VITALS: TEMP 97
[2020-05-09] MEDS ORDERED: NOREPINEPHRINE 4 MG in D5W 250 ML IV PRN (22:52)
[2020-05-09 22:59] LABS: Arterial Blood Carboxyhemoglob 1.8 % (0-1.5); Blood Gas Oxyhemoglobin 85.7 % (94-97); Blood O2 Saturation 88.1 % (92-98.5)
[2020-05-09] MEDS ORDERED: NOREPINEPHRINE 4 MG/4 ML VIAL ONE (23:10)
[2020-05-09] MEDS ORDERED: D5W 250 ML IV ONE (23:10)
[2020-05-10 00:20] VITALS: BP 119/57
[2020-05-10] MEDS ORDERED: DOPAMINE/D5W 400 MG/250 ML BAG IV ONE (00:38)
--- NOTE | 2020-05-10 02:23 | DS ---
Date of Discharge: 05/09/2020 Physical Examination: General: When I saw the patient this morning, she was on ventilator, unresponsive to any verbal, tactile, or painful stimuli. Pupils fixed and dilated. No corneal reflex. She does not have any cough or gag reflex. She does not breathe over the ventilator. Vital Signs: Reviewed. Intake and output records reviewed. HEENT: Unremarkable except presence of endotracheal tube. Lungs: Bilateral equal air entry. Heart: Sounds normal. Abdomen: Soft. Bowel sounds normoactive. Extremities: Worsening edema of all the 4 extremities noted. Laboratory Data: This morning, sodium 135, potassium 4.9, chloride 101, bicarb 24, BUN 78, creatinine 5.51, glucose 198, AST 50, ALT 22. Hospital Course: This is a 45-year-old female patient, who presented to the hospital emergency room after she was found unresponsive. The patient had cardiac arrest at home. Please see dictated H and P for more information. EMS was called. When EMS arrived at scene, she was in asystole. The patient was intubated in the field and CPR was started. When the patient arrived to ER, she was still in asystole. Her COVID-19 test was negative. The patient did regain pulse after ongoing efforts in the emergency room and she required vasopressor medication. Initially, she was on 3 different vasopressor medication and subsequently as her blood pressure improved, we were able to discontinue 2 vasopressor medication and the third vasopressor medication that she is currently on, which is dopamine, dose was reduced to renal perfusion dose. Pulmonary, Cardiology, Neurology, and Nephrology consultation was requested. The patient's overall condition continued to decline. She never recovered from this and she was noted to have fixed dilated pupil, no cough or gag reflex, no response to painful stimuli, and she is not breathing over the ventilator setting. EEG was done which was flat line. As per my discussion with Dr. Keller, there was no brain wave activity noted. All these details were discussed with the patient's family members including the patient's , sister as well as father. Yesterday, the patient's family made decision of do not resuscitate and appropriate orders were placed in chart. Today, the patient's family has signed withdrawal of life support and organ donor agency was consulted by hospital and when I talked to the sales promotion representative from [employer], he informed me that the patient is a registered organ donor and he has communicated with the patient's family members regarding this. So, plan is now that the patient will be transported from our hospital to go to [facility] in [place] and she will leave our hospital today. Final Diagnoses: 1. Cardiac arrest. 2. Acute respiratory failure, with hypoxia and hypercapnia. 3. Congestive heart failure, chronic, diastolic. 4. Acute renal failure. 5. Rule out pneumonia. 6. Hypertension. 7. Type 2 diabetes mellitus. 8. Anemia. ALBERTA/MODL Voice ID: [id number] Report ID: [id number] THERESA
== END 2020-05-10 00:50 | disposition expired | DRG 296 ==
LOC: SUPCPDRO 08:28 → ER 08:28 → ERHOLD 13:35
PROVIDERS: ATTEND Internal Medicine
PROC: 5A1945Z Respiratory Ventilation, 24-96 Consecutive Hours (ICD-10-PCS; principal; 2020-05-07)
PROC: 06HY33Z Insertion of Infusion Device into Lower Vein, Percutaneous Approach (ICD-10-PCS; 2020-05-07)
PROC: 5A12012 Performance of Cardiac Output, Single, Manual (ICD-10-PCS; 2020-05-07)
DX: I46.9 Cardiac arrest, cause unspecified (principal); J80 Acute respiratory distress syndrome; N17.0 Acute kidney failure with tubular necrosis; A41.9 Sepsis, unspecified organism; R65.21 Severe sepsis with septic shock; J18.9 Pneumonia, unspecified organism; I13.0 Hypertensive heart and chronic kidney disease with heart failure and stage 1 through stage 4 chronic kidney disease, or unspecified chronic kidney disease; I50.32 Chronic diastolic (congestive) heart failure; E87.2 Acidosis; N18.4 Chronic kidney disease, stage 4 (severe); G93.1 Anoxic brain damage, not elsewhere classified; E11.65 Type 2 diabetes mellitus with hyperglycemia; E11.22 Type 2 diabetes mellitus with diabetic chronic kidney disease; E11.40 Type 2 diabetes mellitus with diabetic neuropathy, unspecified; I25.10 Atherosclerotic heart disease of native coronary artery without angina pectoris; E78.5 Hyperlipidemia, unspecified; E87.5 Hyperkalemia; D50.9 Iron deficiency anemia, unspecified; F17.200 Nicotine dependence, unspecified, uncomplicated; T68.XXXA Hypothermia, initial encounter; Y95 Nosocomial condition; Z66 Do not resuscitate; Z79.899 Other long term (current) drug therapy; Z86.19 Personal history of other infectious and parasitic diseases; Z79.4 Long term (current) use of insulin; Z98.51 Tubal ligation status; Z20.828 Contact with and (suspected) exposure to other viral communicable diseases
CPT/HCPCS: 31500; 36415; 51702; 70450; 71045; 76770; 80048; 80069; 80076; 80202; 82805; 82947; 83605; 83735; 83880; 83970; 84145; 84484; 85025; 85610; 87040; 87804; 92950; 93005; 94002; 94003; 95816; 99291; 99292; C9113; J0171; J0610; J0692; J1265; J1644; J1815; J1940; J3370; J7030; J7040; J7050; J7060; J7799; U0003